=== PATIENT | male | born 1965 | race Caucasian/White ===

== ENCOUNTER 2018-03-28 11:53 | Day surgery (SDC) | payer OTHER ==
[~2018-03-28 11:53] MED LIST: Lactated Ringers 1,000 ML IV SCH; Lidocaine 2% 5 ML SDV ONE; Propofol 200 MG/20 ML SDV ONE; fentaNYL 100 MCG/2 ML SDV ONE
--- NOTE | 2018-03-28 12:16 | PCM.PREANE ---
Preanesthetic Assessment - Anesthesia/Transfusion/Family Hx Anesthesia History: Prior Anesthesia Without Reaction Other Type of Anesthesia Reaction Comment: Denies any known problems in past, Lots of anxiety recent Family History of Anesthesia Reaction: No Transfusion History: No Prior Transfusion(s) - Review of Systems General: No Symptoms Pulmonary: No Symptoms Cardiovascular: No Symptoms Gastrointestinal: No Symptoms Neurological: No Symptoms Other: Reports: Anxiety - Physical Assessment NPO Status Date: 03/27/18 Height: 1.65 m Weight: 70.307 kg ASA Class: 2 Airway Class: Mallampati = 1 Dentition: Reports: Normal Dentition ROM/Head Extension: Full Lungs: Clear to Auscultation, Normal Respiratory Effort Cardiovascular: Regular Rate, Regular Rhythm - Allergies Allergies/Adverse Reactions: Allergies Allergy/AdvReac Type Severity Reaction Status Date / Time amoxicillin [Amoxicillin] Allergy Rash Verified 03/27/18 12:02 codeine Allergy Swelling Verified 03/27/18 12:02 - Blood Blood Available: No - Anesthesia Plan Pre-Op Medication Ordered: None - Acknowledgements Anesthesia Type Planned: MAC Pt an Appropriate Candidate for the Planned Anesthesia: Yes Alternatives and Risks of Anesthesia Discussed w Pt/Guardian: Yes Pt/Guardian Understands and Agrees with Anesthesia Plan: Yes PreAnesthesia Questionnaire HEENT History: Reports: Hard of Hearing Respiratory History: Reports: COPD Other Respiratory History: smokes 1-2 PPd for 35 years Gastrointestinal History: Reports: Colon Polyp Musculoskeletal History: Reports: Back Pain, Chronic, Fracture, Neck Pain, Chronic Other Musculoskeletal History: hx of fx left wrist, right clavicle, left ankle Neurological History: Reports: Headaches, Chronic, Head Trauma Psychiatric History: Reports: Anxiety, Depression, Panic Attack Endocrine/Metabolic History: Reports: None - Infectious Disease History Infectious Disease History: Reports: Chicken Pox, Measles, Mumps, Shingles - Past Surgical History HEENT Surgical History: Reports: Other (See Below) Other HEENT Surgeries/Procedures: wisdom tooth extraction. rhinoplasty GI Surgical History: Reports: Appendectomy, Colonoscopy Male Surgical History: Reports: Vasectomy Neurological Surgical History: Reports: Laminectomy, Lumbar Spine Musculoskeletal Surgical History: Reports: Other (See Below) Other Musculoskeletal Surgeries/Procedures:: laminectomy, hx of ORIF left ankle - no hardware - SUBSTANCE USE Smoking Status *Q: Current Every Day Smoker Tobacco Use Within Last Twelve Months: Cigarettes Recreational Drug Use History: Yes - HOME MEDS Home Medications: Home Meds Venlafaxine [Effexor XR] 150 mg PO BRK 02/26/14 [History] ALPRAZolam [Alprazolam] 1 tab PO ASDIRECTED PRN 02/02/16 [History] Diclofenac Sodium [Voltaren] 4 gm TOP QID 03/27/18 [History] - CURRENT (IN HOUSE) MEDS Current Meds: Current Medications Lactated Ringer's (Ringers, Lactated) 1,000 mls @ 125 mls/hr IV ASDIRECTED LAISHA Discontinued Medications Fentanyl (Sublimaze) Confirm Administered Dose 100 mcg .ROUTE .STK-MED ONE Stop: 03/28/18 10:58 Lidocaine (Xylocaine-Mpf 2%) Confirm Administered Dose 5 ml .ROUTE .STK-MED ONE Stop: 03/28/18 10:58 Propofol (Diprivan 20 Ml) Confirm Administered Dose 200 mg .ROUTE .STK-MED ONE Stop: 03/28/18 10:58
[2018-03-28] MEDS ORDERED: Propofol 200 MG/20 ML SDV ONE (12:54)
[2018-03-28] MEDS ORDERED: fentaNYL 100 MCG/2 ML SDV ONE (12:59)
--- NOTE | 2018-03-28 13:15 | PCM.OPNOTE ---
- General Post-Op/Procedure Note Date of Surgery/Procedure: 03/28/18 Operative Procedure(s): attempted colonoscopy Findings: see dictation [id number] Pre Op Diagnosis: scrn colonoscopy Post-Op Diagnosis: Same Anesthesia Technique: Moderate Sedation Primary Surgeon: Jesse Darby Complications: None Condition: Good
--- NOTE | 2018-03-28 13:28 | PCM.POSTAN ---
POST ANESTHESIA ASSESSMENT - MENTAL STATUS Mental Status: Alert, Oriented - RESPIRATORY Respiratory Status: Respiratory Rate WNL, Airway Patent, O2 Saturation Stable - CARDIOVASCULAR CV Status: Pulse Rate WNL, Blood Pressure Stable - GASTROINTESTINAL GI Status: No Symptoms - PAIN Pain Score: 0 - POST OP HYDRATION Hydration Status: Adequate & Stable
[2018-03-28 13:51] VITALS: BP 138/89
--- NOTE | 2018-03-28 14:36 | PCM48HPAN ---
Post Anesthesia Note - EVALUATION WITHIN 48HRS OF ANESTHETIC Vital Signs in Normal Range: Yes Patient Participated in Evaluation: Yes Respiratory Function Stable: Yes Airway Patent: Yes Cardiovascular Function Stable: Yes Hydration Status Stable: Yes Pain Control Satisfactory: Yes (Denies any pain) Nausea and Vomiting Control Satisfactory: Yes Mental Status Recovered: Yes Resp Rate: 16
--- NOTE | 2018-03-29 08:41 | OR ---
SURGEON: Jesse Darby MD DATE OF PROCEDURE: 03/28/2018 PREOPERATIVE DIAGNOSIS: Surveillance colonoscopy. POSTOPERATIVE DIAGNOSIS: Surveillance colonoscopy. PROCEDURE PERFORMED: Attempted colonoscopy. COMPLICATIONS: None. FINDINGS: Cannot negotiate past 25 cm. PROCEDURE IN DETAIL: The patient taken to the endoscopy room and placed in left decubitus position, left side down and right side up. Mild general sedation was given by ELECTRICIAN MASTER with Diprivan. The patient slowly went to sedation. Digital examination performed, no abnormality. Prostate was smooth. A well-lubricated colonoscopy was gently inserted through the rectum and advanced without difficulty all the way to 25 cm and over that, cannot advance anymore despite numerous attempts and maneuvered the body position on the back, and decubitus again, failed to advance. During this short distance of colonoscopy, did not observe any abnormality. Scope withdrawn. The patient went for complementary barium enema. YEHUDA / JAMIR /[id number]
--- NOTE | 2018-03-29 10:48 | CR ---
EXAMINATION: Single contrast barium enema HISTORY: Incomplete colonoscopy COMPARISON: 01/17/2017 TECHNIQUE: Standard single contrast barium enema was performed. FINDINGS: The colon and rectum are overall normally distensible. There is mild narrowing of the sigmo id colon with moderate sigmoid diverticulosis, likely from long-standing inflammation. No focal stric ture or filling defect identified. IMPRESSION: 1. Diverticulosis, otherwise unremarkable barium enema.
== END 2018-03-28 14:40 | disposition home or self-care (01) ==
LOC: MW.SDS 11:53
PROVIDERS: ATTEND Surgery
DX: Z12.11 Encounter for screening for malignant neoplasm of colon (principal); M79.1 Myalgia; M47.816 Spondylosis without myelopathy or radiculopathy, lumbar region; J44.9 Chronic obstructive pulmonary disease, unspecified; F10.10 Alcohol abuse, uncomplicated; F41.9 Anxiety disorder, unspecified; F32.9 Major depressive disorder, single episode, unspecified; F17.210 Nicotine dependence, cigarettes, uncomplicated; Z79.899 Other long term (current) drug therapy; Z88.0 Allergy status to penicillin; Z88.5 Allergy status to narcotic agent
CPT/HCPCS: 45330; 74270; J2704; J3010; J7120

== ENCOUNTER 2019-03-02 15:08 | Emergency (ER) | payer OTHER ==
[2019-03-02] MEDS ORDERED: Sodium Chloride 0.9% 10 ML Syringe FLUSH PRN (15:09)
[2019-03-02] MEDS ORDERED: Sodium Chloride 0.9% 2.5 ML Syringe FLUSH PRN (15:09)
[2019-03-02] MEDS ORDERED: Sodium Chloride 0.9% 10 ML SDV IV PRN (15:09)
[2019-03-02 15:41] VITALS: BP 147/88; PULSE 87
--- NOTE | 2019-03-02 15:53 | CT ---
INDICATION: Stroke symptoms. TECHNIQUE: Scanning of the head was performed without IV contrast material. Coronal and sagittal reconstructions were obtained. COMPARISON: None. FINDINGS: Vasogenic edema is demonstrated in the lateral aspect of the posterior right frontal lobe. On images 36-38 of series 201, a mass, likely a metastasis, measuring 1.8 x 1.4 x 1.1 cm is demonstrated. On images 36-40, a solid and cystic 1.6 x 1.4 x 1.3 cm metastasis is demonstrated at the adair-white junction at the junction of the right frontal and parietal lobes medially. This also has associated vasogenic edema. A smaller focus of vasogenic edema in the left centrum semiovale is noted and a 0.6 cm metastasis is suspected to be present at the adair-white junction in the left frontoparietal region on image 42. No acute hemorrhage is demonstrated. No significant mass effect is apparent. Differentiation between the adair matter and white matter is preserved. The ventricles and other subarachnoid spaces are within normal limits. No calvarial abnormality is evident. The visualized paranasal and mastoid sinuses are clear. IMPRESSION: 1. At least 3 intra-axial masses with associated vasogenic edema, as above, most likely due to metastatic disease. Statistically, lung cancer most likely. Chest x-ray suggested. 2. Negative for acute hemorrhage and significant mass effect. These findings were discussed with Dr. Bran at 3:45 p.m. on 03/02/2019. Please note that all CT scans at this facility use dose modulation, iterative reconstruction, and/or weight-based dosing when appropriate to reduce radiation dose to as low as reasonably achievable. Dictated by Rahul Miranda MD @ Mar 02 2019 3:39PM Signed by Dr. Rahul Miranda @ Mar 02 2019 3:51PM
[2019-03-02 15:54] LABS: BLOOD UREA NITROGEN,BUN 8 mg/dL (7.0-18.0); CARBON DIOXIDE,CO2 25.8 mmol/L (21.0-32.0); CHLORIDE,CL 105 mmol/L (98-107); GLUCOSE RANDOM 96 mg/dL (74-106); POTASSIUM,K 3.8 mmol/L (3.5-5.1); SODIUM,NA 141 mmol/L (136-148)
--- NOTE | 2019-03-02 16:02 | CR ---
Indication: Pain. Technique: An AP view of the pelvis was obtained. Comparison: None Findings: Both femoral heads are seated within the acetabula. Degenerative changes of both hips are identified. Degenerative changes of the lower lumbar spine are identified. No acute fracture or subluxation is identified. Impression: Degenerative change. Dictated by Siena Jarvis MD @ Mar 02 2019 4:00PM Signed by Dr. Siena Jarvis @ Mar 02 2019 4:01PM
--- NOTE | 2019-03-02 16:02 | CR ---
Indication: Stroke code. Technique: A single AP portable view of the chest was obtained. Comparison: None Findings: The heart is normal in size. The lungs are clear. No infiltrate, pleural effusion, or pneumothorax is identified. Impression: No acute cardiopulmonary process. Dictated by Siena Jarvis MD @ Mar 02 2019 3:59PM Signed by Dr. Siena Jarvis @ Mar 02 2019 3:59PM
--- NOTE | 2019-03-02 16:35 | EDM.PDOC ---
ED HPI GENERAL MEDICAL PROBLEM - General Chief Complaint: Neurological Problem Stated Complaint: BLEEDING MOUTH TROUBLE Time Seen by Provider: 03/02/19 15:09 - History of Present Illness INITIAL COMMENTS - FREE TEXT/NARRATIVE: See note 03/02/2019 at 17:34 for documentation for this encounter. This note was started/entered in error. - Related Data Allergies Allergy/AdvReac Type Severity Reaction Status Date / Time amoxicillin [Amoxicillin] Allergy Rash Verified 03/05/19 19:13 codeine Allergy Swelling Verified 03/05/19 19:13 Home Meds: Home Meds Venlafaxine [Effexor XR] 150 mg PO BRK 02/26/14 [History] ALPRAZolam [Alprazolam] 1 tab PO ASDIRECTED PRN 02/02/16 [History] Diclofenac Sodium [Voltaren] 4 gm TOP QID 03/27/18 [History] Past Medical History HEENT History: Reports: Hard of Hearing Respiratory History: Reports: COPD Other Respiratory History: smokes 1-2 PPd for 35 years Gastrointestinal History: Reports: Colon Polyp Musculoskeletal History: Reports: Back Pain, Chronic, Fracture, Neck Pain, Chronic Other Musculoskeletal History: hx of fx left wrist, right clavicle, left ankle Neurological History: Reports: Headaches, Chronic, Head Trauma Psychiatric History: Reports: Anxiety, Depression, Panic Attack Endocrine/Metabolic History: Reports: None - Infectious Disease History Infectious Disease History: Reports: None - Past Surgical History HEENT Surgical History: Reports: Other (See Below) Other HEENT Surgeries/Procedures: wisdom tooth extraction. rhinoplasty GI Surgical History: Reports: Appendectomy, Colonoscopy Male Surgical History: Reports: Vasectomy Neurological Surgical History: Reports: Laminectomy, Lumbar Spine Musculoskeletal Surgical History: Reports: Other (See Below) Other Musculoskeletal Surgeries/Procedures:: laminectomy, hx of ORIF left ankle - no hardware Social & Family History - Family History Family Medical History: Noncontributory - Tobacco Use Smoking Status *Q: Current Every Day Smoker Years of Tobacco use: 35 Packs/Tins Daily: 1 - Caffeine Use Caffeine Use: Reports: Coffee - Recreational Drug Use Recreational Drug Use: Yes Recreational Drug Type: Reports: Marijuana/Hashish Recreational Drug Use Frequency: Daily ED ROS GENERAL - Review of Systems Review Of Systems: ROS reveals no pertinent complaints other than HPI. ED EXAM, GENERAL - Physical Exam Exam: See Below (See dictation) Course - Vital Signs Last Recorded V/S: Last Vital Signs Temp 36.7 C 03/02/19 15:15 Pulse 87 03/02/19 15:40 Resp 18 03/02/19 15:40 BP 147/88 H 03/02/19 15:40 Pulse Ox 98 03/02/19 15:40 - Orders/Labs/Meds Labs: Laboratory Tests 03/02/19 03/02/19 03/02/19 Range/Units 15:15 15:15 15:15 WBC 6.92 (4.0-11.0) K/uL RBC 5.27 (4.50-5.90) M/uL Hgb 17.3 H (13.0-17.0) g/dL Hct 48.0 (38.0-50.0) % MCV 91.1 (80.0-98.0) fL MCH 32.8 H (27.0-32.0) pg MCHC 36.0 (31.0-37.0) g/dL RDW Std Deviation 43.9 (28.0-62.0) fl RDW Coeff of Curry 13 (11.0-15.0) % Plt Count 238 (150-400) K/uL MPV 9.90 (7.40-12.00) fL Neut % (Auto) 50.2 (48.0-80.0) % Lymph % (Auto) 32.2 (16.0-40.0) % Motley % (Auto) 14.0 (0.0-15.0) % Eos % (Auto) 2.9 (0.0-7.0) % Baso % (Auto) 0.7 (0.0-1.5) % Neut # (Auto) 3.5 (1.4-5.7) K/uL Lymph # (Auto) 2.2 (0.6-2.4) K/uL Motley # (Auto) 1.0 H (0.0-0.8) K/uL Eos # (Auto) 0.2 (0.0-0.7) K/uL Baso # (Auto) 0.1 (0.0-0.1) K/uL INR 1.04 APTT 26.6 (18.6-31.3) SEC Sodium 141 (136-148) mmol/L Potassium 3.8 (3.5-5.1) mmol/L Chloride 105 (98-107) mmol/L Carbon Dioxide 25.8 (21.0-32.0) mmol/L BUN 8 (7.0-18.0) mg/dL Creatinine 0.9 (0.8-1.3) mg/dL Est Cr Clr Drug Dosing 84.67 mL/min Estimated GFR (MDRD) > 60.0 ml/min Glucose 96 (74-106) mg/dL Calcium 8.9 (8.5-10.1) mg/dL Total Bilirubin 0.8 (0.2-1.0) mg/dL AST 40 H (15-37) IU/L ALT 37 (14-63) IU/L Alkaline Phosphatase 76 (46-116) U/L Creatine Kinase 679 H (26-308) U/L Troponin I < 0.050 (0.000-0.056) ng/mL Total Protein 6.6 (6.4-8.2) g/dL Albumin 3.7 (3.4-5.0) g/dL Globulin 2.9 (2.6-4.0) g/dL Albumin/Globulin Ratio 1.3 (0.9-1.6) TSH 3rd Generation 1.46 (0.36-3.74) uIU/mL Urine Color Urine Appearance Urine pH (5.0-8.0) Ur Specific [place] (1.001-1.035) Urine Protein (NEGATIVE) mg/dL Urine Glucose (UA) (NEGATIVE) mg/dL Urine Ketones (NEGATIVE) mg/dL Urine Occult Blood (NEGATIVE) Urine Nitrite (NEGATIVE) Urine Bilirubin (NEGATIVE) Urine Urobilinogen (<2.0) EU/dL Ur Leukocyte Esterase (NEGATIVE) 03/02/19 Range/Units 16:05 WBC (4.0-11.0) K/uL RBC (4.50-5.90) M/uL Hgb (13.0-17.0) g/dL Hct (38.0-50.0) % MCV (80.0-98.0) fL MCH (27.0-32.0) pg MCHC (31.0-37.0) g/dL RDW Std Deviation (28.0-62.0) fl RDW Coeff of Curry (11.0-15.0) % Plt Count (150-400) K/uL MPV (7.40-12.00) fL Neut % (Auto) (48.0-80.0) % Lymph % (Auto) (16.0-40.0) % Motley % (Auto) (0.0-15.0) % Eos % (Auto) (0.0-7.0) % Baso % (Auto) (0.0-1.5) % Neut # (Auto) (1.4-5.7) K/uL Lymph # (Auto) (0.6-2.4) K/uL Motley # (Auto) (0.0-0.8) K/uL Eos # (Auto) (0.0-0.7) K/uL Baso # (Auto) (0.0-0.1) K/uL INR APTT (18.6-31.3) SEC Sodium (136-148) mmol/L Potassium (3.5-5.1) mmol/L Chloride (98-107) mmol/L Carbon Dioxide (21.0-32.0) mmol/L BUN (7.0-18.0) mg/dL Creatinine (0.8-1.3) mg/dL Est Cr Clr Drug Dosing mL/min Estimated GFR (MDRD) ml/min Glucose (74-106) mg/dL Calcium (8.5-10.1) mg/dL Total Bilirubin (0.2-1.0) mg/dL AST (15-37) IU/L ALT (14-63) IU/L Alkaline Phosphatase (46-116) U/L Creatine Kinase (26-308) U/L Troponin I (0.000-0.056) ng/mL Total Protein (6.4-8.2) g/dL Albumin (3.4-5.0) g/dL Globulin (2.6-4.0) g/dL Albumin/Globulin Ratio (0.9-1.6) TSH 3rd Generation (0.36-3.74) uIU/mL Urine Color YELLOW Urine Appearance CLEAR Urine pH 7.5 (5.0-8.0) Ur Specific [place] 1.010 (1.001-1.035) Urine Protein NEGATIVE (NEGATIVE) mg/dL Urine Glucose (UA) NEGATIVE (NEGATIVE) mg/dL Urine Ketones NEGATIVE (NEGATIVE) mg/dL Urine Occult Blood NEGATIVE (NEGATIVE) Urine Nitrite NEGATIVE (NEGATIVE) Urine Bilirubin NEGATIVE (NEGATIVE) Urine Urobilinogen 0.2 (<2.0) EU/dL Ur Leukocyte Esterase NEGATIVE (NEGATIVE) Meds: Medications Discontinued Medications Generic Name Dose Route Start Last Admin Trade Name Freq PRN Reason Stop Dose Admin Sodium Chloride 10 ml 03/02/19 15:09 Saline Flush FLUSH ASDIRECTED PRN Keep Vein Open Sodium Chloride 2.5 ml 03/02/19 15:09 Saline Flush FLUSH ASDIRECTED PRN Keep Vein Open Sodium Chloride 10 ml 03/02/19 15:09 Normal Saline IV ASDIRECTED PRN IV Use Departure - Departure Time of Disposition: 16:34 Disposition: Home, Self-Care 01 Clinical Impression: Intracranial mass - Discharge Information
--- NOTE | 2019-03-02 17:49 | EDM.PDOC ---
ED HPI GENERAL MEDICAL PROBLEM - General Chief Complaint: Neurological Problem Stated Complaint: BLEEDING MOUTH TROUBLE Time Seen by Provider: 03/02/19 15:09 Source of Information: Reports: Patient History Limitations: Reports: No Limitations - History of Present Illness INITIAL COMMENTS - FREE TEXT/NARRATIVE: HISTORY AND PHYSICAL: History of present illness: (Initial HPI limited due to altered mental status) Patient is a 53-year-old male presents to the ED today via EMS with an unclear an unwitnessed story of exactly what had occurred. EMS states that patient was found at the neighbor's door and EMS was called. Upon arrival, patient states that he had some numbness in the left side of his face and doesn't recall the whole event. Patient states he felt like he was drowning and was dizzy and lightheaded and couldn't take a big deep breath in. Patient states he did bite his tongue and has had bleeding in his mouth. Currently, patient states he feels confused but denies any other symptoms at this time. Patient does live at home alone and this was all unwitnessed. Last known time well is unknown. Following the CT, patient was no longer confused and able to properly communicate what happened. Patient states he was sitting on his couch when he began to feel a numbness sensation in the left side of his cheek. He states he went to grab his phone to call EMS but states he could not unlock his phone to call 911. Patient states he then went outside and went to his neighbor's door and sat down to knock on the door. He states that when the neighbors came out and had called 911. Patient states he's never had this before and he is not entirely sure if he lost consciousness when he was on the couch when symptoms began. Patient denies any complaints at this time. Patient has a history of COPD and high blood pressure but he denies any other health history. Patient denies fever, chills, chest pain, shortness of breath, or cough. Denies headache, neck stiff ness, change in vision, syncope, or near syncope. Denies nausea, vomiting, abdominal pain, diarrhea, constipation, or dysuria. Has not noted any blood in urine or stool. Patient has been eating and drinking appropriately. Review of systems: As per history of present illness and below otherwise all systems reviewed and negative. Past medical history: As per history of present illness and as reviewed below otherwise noncontributory. Surgical history: As per history of present illness and as reviewed below otherwise noncontributory. Social history: See social history for further information Family history: As per history of present illness and as reviewed below otherwise noncontributory. Physical exam: General: Patient is alert, oriented to person and place, and in no acute distress. Patient sitting comfortably on exam table and is confused. HEENT: Atraumatic, normocephalic, pupils equal and reactive bilaterally, negative for conjunctival pallor or scleral icterus, mucous membranes moist, TMs normal bilaterally, throat clear, neck supple, nontender, trachea midline. No drooling or trismus noted. No meningeal signs. No hot potato voice noted. There are 2 bite blackburn to either side of tongue with old blood in his mouth. Lungs: Clear to auscultation, breath sounds equal bilaterally, chest nontender. Heart: S1S2, regular rate and rhythm without overt murmur Abdomen: Soft, nondistended, nontender. Negative for masses or hepatosplenomegaly. Negative for costovertebral tenderness. Pelvis: Stable nontender. Genitourinary: Deferred. Rectal: Deferred. Skin: Intact, warm, dry. No lesions or rashes noted. Extremities: Atraumatic, negative for cords or calf pain. Neurovascular unremarkable. Neuro: Awake, alert, oriented to person and place but unsure of time. His sentences are not clear and "word salad" is present. Cranial nerves II through XII unremarkable. Cerebellum unremarkable. Motor and sensory unremarkable throughout. Exam nonfocal. Notes: Stroke code was called upon arrival to the ED. Dr. Coats involved in patient care. Last known time well is unknown. (Performed after head CT) NIH score of 0, GCS 15. Did offer admission for observation and had thorough discussion with patient about findings today. Patient is adamant about going home and he is alert and fully oriented to make this decision. Discussed the risks vs benefits of going home and patient continues to decline admission and accepts the risks. Denies any further questions or concerns at this time. Diagnostics: CBC, CMP, UA, EKG, troponin, chest x-ray, head CT, pelvic x-ray, CPK, TSH, PT/ INR, PTT Therapeutics: None Prescription: None Impression: Altered mental status, resolved Intracranial masses Tongue bite injury Plan: 1. You can use Tylenol as directed for pain and discomfort. 2. [facility]. Call them in the morning for an appointment. 3. Return to the ED as needed and as discussed. Definitive disposition and diagnosis as appropriate pending reevaluation and review of above. - Related Data Allergies Allergy/AdvReac Type Severity Reaction Status Date / Time amoxicillin [Amoxicillin] Allergy Rash Verified 03/02/19 17:17 codeine Allergy Swelling Verified 03/02/19 17:17 Home Meds: Home Meds Venlafaxine [Effexor XR] 150 mg PO BRK 02/26/14 [History] ALPRAZolam [Alprazolam] 1 tab PO ASDIRECTED PRN 02/02/16 [History] Diclofenac Sodium [Voltaren] 4 gm TOP QID 03/27/18 [History] Past Medical History HEENT History: Reports: Hard of Hearing Respiratory History: Reports: COPD Other Respiratory History: smokes 1-2 PPd for 35 years Gastrointestinal History: Reports: Colon Polyp Musculoskeletal History: Reports: Back Pain, Chronic, Fracture, Neck Pain, Chronic Other Musculoskeletal History: hx of fx left wrist, right clavicle, left ankle Neurological History: Reports: Headaches, Chronic, Head Trauma Psychiatric History: Reports: Anxiety, Depression, Panic Attack Endocrine/Metabolic History: Reports: None - Infectious Disease History Infectious Disease History: Reports: None - Past Surgical History HEENT Surgical History: Reports: Other (See Below) Other HEENT Surgeries/Procedures: wisdom tooth extraction. rhinoplasty GI Surgical History: Reports: Appendectomy, Colonoscopy Male Surgical History: Reports: Vasectomy Neurological Surgical History: Reports: Laminectomy, Lumbar Spine Musculoskeletal Surgical History: Reports: Other (See Below) Other Musculoskeletal Surgeries/Procedures:: laminectomy, hx of ORIF left ankle - no hardware Social & Family History - Family History Family Medical History: Noncontributory - Tobacco Use Smoking Status *Q: Current Every Day Smoker Years of Tobacco use: 35 Packs/Tins Daily: 1 - Caffeine Use Caffeine Use: Reports: Coffee - Recreational Drug Use Recreational Drug Use: Yes Recreational Drug Type: Reports: Marijuana/Hashish Recreational Drug Use Frequency: Daily ED ROS GENERAL - Review of Systems Review Of Systems: ROS reveals no pertinent complaints other than HPI. ED EXAM, GENERAL - Physical Exam Exam: See Below (See dictation) Free Text/Narrative:: HISTORY AND PHYSICAL: History of present illness: Patient denies fever, chills, chest pain, shortness of breath, or cough. Denies headache, neck stiff ness, change in vision, syncope, or near syncope. Denies nausea, vomiting, abdominal pain, diarrhea, constipation, or dysuria. Has not noted any blood in urine or stool. Patient has been eating and drinking appropriately. Review of systems: As per history of present illness and below otherwise all systems reviewed and negative. Past medical history: As per history of present illness and as reviewed below otherwise noncontributory. Surgical history: As per history of present illness and as reviewed below otherwise noncontributory. Social history: See social history for further information Family history: As per history of present illness and as reviewed below otherwise noncontributory. Physical exam: General: Patient is alert, oriented, and in no acute distress. Patient sitting comfortably on exam table. HEENT: Atraumatic, normocephalic, pupils equal and reactive bilaterally, negative for conjunctival pallor or scleral icterus, mucous membranes moist, TMs normal bilaterally, throat clear, neck supple, nontender, trachea midline. No drooling or trismus noted. No meningeal signs. No hot potato voice noted. Lungs: Clear to auscultation, breath sounds equal bilaterally, chest nontender. Heart: S1S2, regular rate and rhythm without overt murmur Abdomen: Soft, nondistended, nontender. Negative for masses or hepatosplenomegaly. Negative for costovertebral tenderness. Pelvis: Stable nontender. Genitourinary: Deferred. Rectal: Deferred. Skin: Intact, warm, dry. No lesions or rashes noted. Extremities: Atraumatic, negative for cords or calf pain. Neurovascular unremarkable. Neuro: Awake, alert, oriented. Cranial nerves II through XII unremarkable. Cerebellum unremarkable. Motor and sensory unremarkable throughout. Exam nonfocal. Notes: Stroke code was called upon arrival to the ED. Voices understanding and is agreeable to plan of care. Denies any further questions or concerns at this time. Diagnostics: CBC, CMP, UA, EKG, troponin, chest x-ray, head CT, pelvic x-ray, CPK, TSH, PT/ INR, PTT Therapeutics: Prescription: Impression: Intracranial masses Altered mental status, resolved Tongue bite Plan: 1. You can use Tylenol as directed for pain and discomfort. 2. [facility], [facility]. Call them in the morning for an appointment. 3. Return to the ED as needed and as discussed. Definitive disposition and diagnosis as appropriate pending reevaluation and review of above. Course - Vital Signs Last Recorded V/S: Last Vital Signs Temp 36.7 C 03/02/19 15:15 Pulse 87 03/02/19 15:40 Resp 18 03/02/19 15:40 BP 147/88 H 03/02/19 15:40 Pulse Ox 98 03/02/19 15:40 - Orders/Labs/Meds Orders: Active Orders 24 hr Category Date Time Status Assess Neurological Status [RC] ASDIRECTED Care 03/02/19 15:09 Active Bedrest [RC] ASDIRECTED Care 03/02/19 15:09 Active Cardiac Monitoring [RC] . DIRECTED Care 03/02/19 15:09 Active EKG Documentation Completion [RC] STAT Care 03/02/19 15:09 Active Height and Weight [RC] UPON Care 03/02/19 15:09 Active Initiate Acute Stroke Protocol [RC] STAT Care 03/02/19 15:09 Active NIH Stroke Scale [RC] ASDIRECTED Care 03/02/19 15:09 Active Nursing Bedside Swallow Screen [RC] ASDIRECTED Care 03/02/19 15:09 Active Oxygen Therapy [RC] ASDIRECTED Care 03/02/19 15:09 Active Vital Signs [RC] Q15M Care 03/02/19 15:09 Active Peripheral IV Insertion Adult [OM.PC] Stat Oth 03/02/19 15:09 Ordered Peripheral IV Insertion Adult [OM.PC] Stat Oth 03/02/19 15:09 Ordered Labs: Laboratory Tests 03/02/19 03/02/19 03/02/19 Range/Units 15:15 15:15 15:15 WBC 6.92 (4.0-11.0) K/uL RBC 5.27 (4.50-5.90) M/uL Hgb 17.3 H (13.0-17.0) g/dL Hct 48.0 (38.0-50.0) % MCV 91.1 (80.0-98.0) fL MCH 32.8 H (27.0-32.0) pg MCHC 36.0 (31.0-37.0) g/dL RDW Std Deviation 43.9 (28.0-62.0) fl RDW Coeff of Curry 13 (11.0-15.0) % Plt Count 238 (150-400) K/uL MPV 9.90 (7.40-12.00) fL Neut % (Auto) 50.2 (48.0-80.0) % Lymph % (Auto) 32.2 (16.0-40.0) % Meade % (Auto) 14.0 (0.0-15.0) % Eos % (Auto) 2.9 (0.0-7.0) % Baso % (Auto) 0.7 (0.0-1.5) % Neut # (Auto) 3.5 (1.4-5.7) K/uL Lymph # (Auto) 2.2 (0.6-2.4) K/uL Meade # (Auto) 1.0 H (0.0-0.8) K/uL Eos # (Auto) 0.2 (0.0-0.7) K/uL Baso # (Auto) 0.1 (0.0-0.1) K/uL INR 1.04 APTT 26.6 (18.6-31.3) SEC Sodium 141 (136-148) mmol/L Potassium 3.8 (3.5-5.1) mmol/L Chloride 105 (98-107) mmol/L Carbon Dioxide 25.8 (21.0-32.0) mmol/L BUN 8 (7.0-18.0) mg/dL Creatinine 0.9 (0.8-1.3) mg/dL Est Cr Clr Drug Dosing 84.67 mL/min Estimated GFR (MDRD) > 60.0 ml/min Glucose 96 (74-106) mg/dL Calcium 8.9 (8.5-10.1) mg/dL Total Bilirubin 0.8 (0.2-1.0) mg/dL AST 40 H (15-37) IU/L ALT 37 (14-63) IU/L Alkaline Phosphatase 76 (46-116) U/L Creatine Kinase 679 H (26-308) U/L Troponin I < 0.050 (0.000-0.056) ng/mL Total Protein 6.6 (6.4-8.2) g/dL Albumin 3.7 (3.4-5.0) g/dL Globulin 2.9 (2.6-4.0) g/dL Albumin/Globulin Ratio 1.3 (0.9-1.6) TSH 3rd Generation 1.46 (0.36-3.74) uIU/mL Urine Color Urine Appearance Urine pH (5.0-8.0) Ur Specific Elkin (1.001-1.035) Urine Protein (NEGATIVE) mg/dL Urine Glucose (UA) (NEGATIVE) mg/dL Urine Ketones (NEGATIVE) mg/dL Urine Occult Blood (NEGATIVE) Urine Nitrite (NEGATIVE) Urine Bilirubin (NEGATIVE) Urine Urobilinogen (<2.0) EU/dL Ur Leukocyte Esterase (NEGATIVE) 03/02/19 Range/Units 16:05 WBC (4.0-11.0) K/uL RBC (4.50-5.90) M/uL Hgb (13.0-17.0) g/dL Hct (38.0-50.0) % MCV (80.0-98.0) fL MCH (27.0-32.0) pg MCHC (31.0-37.0) g/dL RDW Std Deviation (28.0-62.0) fl RDW Coeff of Curry (11.0-15.0) % Plt Count (150-400) K/uL MPV (7.40-12.00) fL Neut % (Auto) (48.0-80.0) % Lymph % (Auto) (16.0-40.0) % Meade % (Auto) (0.0-15.0) % Eos % (Auto) (0.0-7.0) % Baso % (Auto) (0.0-1.5) % Neut # (Auto) (1.4-5.7) K/uL Lymph # (Auto) (0.6-2.4) K/uL Meade # (Auto) (0.0-0.8) K/uL Eos # (Auto) (0.0-0.7) K/uL Baso # (Auto) (0.0-0.1) K/uL INR APTT (18.6-31.3) SEC Sodium (136-148) mmol/L Potassium (3.5-5.1) mmol/L Chloride (98-107) mmol/L Carbon Dioxide (21.0-32.0) mmol/L BUN (7.0-18.0) mg/dL Creatinine (0.8-1.3) mg/dL Est Cr Clr Drug Dosing mL/min Estimated GFR (MDRD) ml/min Glucose (74-106) mg/dL Calcium (8.5-10.1) mg/dL Total Bilirubin (0.2-1.0) mg/dL AST (15-37) IU/L ALT (14-63) IU/L Alkaline Phosphatase (46-116) U/L Creatine Kinase (26-308) U/L Troponin I (0.000-0.056) ng/mL Total Protein (6.4-8.2) g/dL Albumin (3.4-5.0) g/dL Globulin (2.6-4.0) g/dL Albumin/Globulin Ratio (0.9-1.6) TSH 3rd Generation (0.36-3.74) uIU/mL Urine Color YELLOW Urine Appearance CLEAR Urine pH 7.5 (5.0-8.0) Ur Specific Elkin 1.010 (1.001-1.035) Urine Protein NEGATIVE (NEGATIVE) mg/dL Urine Glucose (UA) NEGATIVE (NEGATIVE) mg/dL Urine Ketones NEGATIVE (NEGATIVE) mg/dL Urine Occult Blood NEGATIVE (NEGATIVE) Urine Nitrite NEGATIVE (NEGATIVE) Urine Bilirubin NEGATIVE (NEGATIVE) Urine Urobilinogen 0.2 (<2.0) EU/dL Ur Leukocyte Esterase NEGATIVE (NEGATIVE) Meds: Medications Discontinued Medications Generic Name Dose Route Start Last Admin Trade Name Freq PRN Reason Stop Dose Admin Sodium Chloride 10 ml 03/02/19 15:09 Saline Flush FLUSH ASDIRECTED PRN Keep Vein Open Sodium Chloride 2.5 ml 03/02/19 15:09 Saline Flush FLUSH ASDIRECTED PRN Keep Vein Open Sodium Chloride 10 ml 03/02/19 15:09 Normal Saline IV ASDIRECTED PRN IV Use Departure - Departure Time of Disposition: 17:50 Disposition: Home, Self-Care 01 Clinical Impression: Intracranial mass, Open wound of tongue due to bite Altered mental status Qualifiers: Altered mental status type: unspecified Qualified Code(s): R41.82 - Altered mental status, unspecified - Discharge Information Instructions: Altered Mental Status Referrals: PCP,None [Primary Care Provider] - Forms: ED Department Discharge Additional Instructions: The following information is given to patients seen in the emergency department who are being discharged to home. This information is to outline your options for follow-up care. We provide all patients seen in our emergency department with a follow-up referral. The need for follow-up, as well as the timing and circumstances, are variable depending upon the specifics of your emergency department visit. If you don't have a primary care physician on staff, we will provide you with a referral. We always advise you to contact your personal physician following an emergency department visit to inform them of the circumstance of the visit and for follow-up with them and/or the need for any referrals to a consulting specialist. The emergency department will also refer you to a specialist when appropriate. This referral assures that you have the opportunity for follow-up care with a specialist. All of these measure are taken in an effort to provide you with optimal care, which includes your follow-up. Under all circumstances we always encourage you to contact your private physician who remains a resource for coordinating your care. When calling for follow-up care, please make the office aware that this follow-up is from your recent emergency room visit. If for any reason you are refused follow-up, please contact the [facility] at and asked to speak to the emergency department charge nurse. [facility] [address] [place] [id number] [id number] 1. You can use Tylenol as directed for pain and discomfort. 2. [facility], [facility] discussed. Call them in the morning for an appointment. 3. Return to the ED as needed and as discussed. - My Orders Last 24 Hours: My Active Orders 03/02/19 15:09 Assess Neurological Status [RC] ASDIRECTED Bedrest [RC] ASDIRECTED Cardiac Monitoring [RC] . DIRECTED EKG Documentation Completion [RC] STAT Height and Weight [RC] UPON Initiate Acute Stroke Protocol [RC] STAT NIH Stroke Scale [RC] ASDIRECTED Nursing Bedside Swallow Screen [RC] ASDIRECTED Oxygen Therapy [RC] ASDIRECTED Vital Signs [RC] Q15M Peripheral IV Insertion Adult [OM.PC] Stat Peripheral IV Insertion Adult [OM.PC] Stat - Assessment/Plan Last 24 Hours: My Active Orders 03/02/19 15:09 Assess Neurological Status [RC] ASDIRECTED Bedrest [RC] ASDIRECTED Cardiac Monitoring [RC] . DIRECTED EKG Documentation Completion [RC] STAT Height and Weight [RC] UPON Initiate Acute Stroke Protocol [RC] STAT NIH Stroke Scale [RC] ASDIRECTED Nursing Bedside Swallow Screen [RC] ASDIRECTED Oxygen Therapy [RC] ASDIRECTED Vital Signs [RC] Q15M Peripheral IV Insertion Adult [OM.PC] Stat Peripheral IV Insertion Adult [OM.PC] Stat
== END 2019-03-02 16:50 | disposition home or self-care (01) ==
LOC: MW.ED 15:08
DX: S01.552A Open bite of oral cavity, initial encounter (principal); G93.89 Other specified disorders of brain; R41.82 Altered mental status, unspecified; W19.XXXA Unspecified fall, initial encounter
CPT/HCPCS: 70450; 70450-26; 71045; 71045-26; 72170; 72170-26; 80053; 81003; 82550; 84443; 84484; 85025; 85610; 85730; 99284; 99285-25

== ENCOUNTER 2019-03-02 17:03 | Emergency (ER) | payer OTHER ==
[2019-03-02] MEDS ORDERED: LORazepam 2 MG/ML SDV IVPUSH ONE ×2 (17:12→17:41)
--- NOTE | 2019-03-02 17:31 | EDM.PDOC ---
ED HPI GENERAL MEDICAL PROBLEM - General Chief Complaint: Neuro Symptoms/Deficits Stated Complaint: NURSE SPOKE TO PT Time Seen by Provider: 03/02/19 17:09 Source of Information: Reports: Patient History Limitations: Reports: No Limitations - History of Present Illness INITIAL COMMENTS - FREE TEXT/NARRATIVE: HISTORY AND PHYSICAL: History of present illness: Patient is a 53-year-old male who I had just personally seen in the ED who was discharged after admission to hospital was offered for newly diagnosed intracranial masses with altered mental status that had resolved throughout his course in the ED; patient adamantly requesting discharge and full alert and orientated. Right after patient had left with his nephew, they returned shortly after, and the nursing staff was helping patient out of the vehicle, and he began to have seizure-like activity; the left side of his mouth twitching, eyes rolling back, unable to speak biting his tongue, and left arm contracted up. Nursing staff immediately brought him back and put him in a room when the seizure activity stopped (lasting less then 30 seconds). Over the next few minutes, he had seizures off and on with periods of being post ictal. Upon my evaluation, I did personally see patient seizing and verified nursing staff concerns as stated above. In total, seizure activity lasted no longer than 30 for each episode. Therapeutics given and patient no longer seizing. (see note section below) Patient denies fever, chills, chest pain, shortness of breath, or cough. Denies headache, neck stiff ness, change in vision, syncope, or near syncope. Denies nausea, vomiting, abdominal pain, diarrhea, constipation, or dysuria. Has not noted any blood in urine or stool. Patient has been eating and drinking appropriately. Review of systems: As per history of present illness and below otherwise all systems reviewed and negative. Past medical history: As per history of present illness and as reviewed below otherwise noncontributory. Surgical history: As per history of present illness and as reviewed below otherwise noncontributory. Social history: See social history for further information Family history: As per history of present illness and as reviewed below otherwise noncontributory. Physical exam: General: Patient is actively seizing on my initial exam. Patient laying on exam table, biting his tongue, left side of his face twitching, and left hand contracted upward. (Lasts a few seconds) HEENT: Atraumatic, normocephalic, pupils equal and reactive bilaterally, negative for conjunctival pallor or scleral icterus, mucous membranes moist, TMs normal bilaterally, throat clear, neck supple, nontender, trachea midline. No drooling or trismus noted. No meningeal signs. No hot potato voice noted. Lungs: Clear to auscultation, breath sounds equal bilaterally, chest nontender. Heart: S1S2, regular rate and rhythm without overt murmur Abdomen: Soft, nondistended, nontender. Negative for masses or hepatosplenomegaly. Negative for costovertebral tenderness. Pelvis: Stable nontender. Genitourinary: Deferred. Rectal: Deferred. Skin: Intact, warm, dry. No lesions or rashes noted. Extremities: Atraumatic, negative for cords or calf pain. Neurovascular unremarkable. Neuro: Patient is actively seizing on my initial exam. Patient laying on exam table, biting his tongue, left side of his face twitching, and left hand contracted upward. (Lasts a few seconds) Notes: Dr. Coats verbally involved in patient care. Throughout course in ED, patient does not have any more seizures. After his postictal state, I rediscussed plan of care with patient and nephew who is now at bedside. He is now willing to accept admission or transfer. He denies any new symptoms or pain following the seizure events with no new complaints. Dr. Arnold was consulted on patient and due to patient symptotic intracranial masses, and not having neurology available, have to transfer patient. Dr. Salcedo, in [place], consulted on patient and accepting of transfer. There is not a ground ambulance available until all 1 AM. Will call for flight transfer. Voices understanding and is agreeable to plan of care. Denies any further questions or concerns at this time. Diagnostics: None (see prior note) Therapeutics: Keppra, Ativan, Decadron Impression: Seizure Intracranial masses, symptomatic Tongue bite injury Plan: 1. Transfer to to Dr. Salcedo via flight. Definitive disposition and diagnosis as appropriate pending reevaluation and review of above. - Related Data Allergies Allergy/AdvReac Type Severity Reaction Status Date / Time amoxicillin [Amoxicillin] Allergy Rash Verified 03/02/19 17:17 codeine Allergy Swelling Verified 03/02/19 17:17 Home Meds: Home Meds Venlafaxine [Effexor XR] 150 mg PO BRK 02/26/14 [History] ALPRAZolam [Alprazolam] 1 tab PO ASDIRECTED PRN 02/02/16 [History] Diclofenac Sodium [Voltaren] 4 gm TOP QID 03/27/18 [History] Past Medical History HEENT History: Reports: Hard of Hearing Respiratory History: Reports: COPD Other Respiratory History: smokes 1-2 PPd for 35 years Gastrointestinal History: Reports: Colon Polyp Musculoskeletal History: Reports: Back Pain, Chronic, Fracture, Neck Pain, Chronic Other Musculoskeletal History: hx of fx left wrist, right clavicle, left ankle Neurological History: Reports: Headaches, Chronic, Head Trauma, Seizure Psychiatric History: Reports: Anxiety, Depression, Panic Attack Endocrine/Metabolic History: Reports: None - Infectious Disease History Infectious Disease History: Reports: None - Past Surgical History HEENT Surgical History: Reports: Other (See Below) Other HEENT Surgeries/Procedures: wisdom tooth extraction. rhinoplasty GI Surgical History: Reports: Appendectomy, Colonoscopy Male Surgical History: Reports: Vasectomy Neurological Surgical History: Reports: Laminectomy, Lumbar Spine Musculoskeletal Surgical History: Reports: Other (See Below) Other Musculoskeletal Surgeries/Procedures:: laminectomy, hx of ORIF left ankle - no hardware Social & Family History - Family History Family Medical History: Noncontributory - Tobacco Use Smoking Status *Q: Current Every Day Smoker Years of Tobacco use: 30 Packs/Tins Daily: 1 - Caffeine Use Caffeine Use: Reports: None - Recreational Drug Use Recreational Drug Use: Yes Recreational Drug Type: Reports: Marijuana/Hashish Recreational Drug Use Frequency: Daily ED ROS GENERAL - Review of Systems Review Of Systems: ROS reveals no pertinent complaints other than HPI. ED EXAM, GENERAL - Physical Exam Exam: See Below (see dictation) Course - Vital Signs Last Recorded V/S: Last Vital Signs Temp 36.1 C 03/02/19 17:18 Pulse 87 03/02/19 18:45 Resp 16 03/02/19 18:45 BP 120/81 03/02/19 18:45 Pulse Ox 97 03/02/19 18:45 - Orders/Labs/Meds Orders: Active Orders 24 hr Category Date Time Status Sodium Chloride 0.9% [Normal Saline] 1,000 ml Med 03/02/19 19:14 Active IV NOW Medication Orders Sodium Chloride (Normal Saline) 1,000 mls @ 80 mls/hr IV NOW STA Stop: 03/03/19 07:43 Last Admin: 03/02/19 19:15 Dose: 80 mls/hr Meds: Medications Generic Name Dose Route Start Last Admin Trade Name Jerad PRN Reason Stop Dose Admin Sodium Chloride 1,000 mls @ 80 mls/hr 03/02/19 19:14 03/02/19 19:15 Normal Saline IV 03/03/19 07:43 80 mls/hr NOW STA Administration Discontinued Medications Generic Name Dose Route Start Last Admin Trade Name Jerad PRN Reason Stop Dose Admin Dexamethasone 10 mg 03/02/19 17:41 03/02/19 17:47 Dexamethasone IVPUSH 03/02/19 17:42 10 mg ONETIME ONE Administration Levetiracetam 1,000 mg/ 110 mls @ 440 mls/hr 03/02/19 17:11 03/02/19 17:27 Dextrose/Water IV 03/02/19 17:25 Not Given NOW STA Levetiracetam 1,000 mg/ 110 mls @ 440 mls/hr 03/02/19 17:13 03/02/19 17:33 Dextrose/Water IV 03/02/19 17:27 440 mls/hr NOW STA Administration Sodium Chloride 1,000 mls @ 999 mls/hr 03/02/19 18:14 03/02/19 18:18 Normal Saline IV 03/02/19 19:14 999 mls/hr .Bolus ONE Administration Lorazepam 1 mg 03/02/19 17:12 03/02/19 17:18 Ativan IVPUSH 03/02/19 17:13 1 mg ONETIME ONE Administration Lorazepam 1 mg 03/02/19 17:41 03/02/19 17:47 Ativan IVPUSH 03/02/19 17:42 1 mg ONETIME ONE Administration Departure - Departure Time of Disposition: 19:04 Disposition: DC/Tfer to Acute Hospital 02 Clinical Impression: Intracranial mass, Seizure, Open wound of tongue due to bite - Discharge Information - My Orders Last 24 Hours: My Active Orders 03/02/19 19:14 Sodium Chloride 0.9% [Normal Saline] 1,000 ml IV NOW - Assessment/Plan Last 24 Hours: My Active Orders 03/02/19 19:14 Sodium Chloride 0.9% [Normal Saline] 1,000 ml IV NOW
[2019-03-02] MEDS ORDERED: Dexamethasone 10 MG/ML SDV IVPUSH ONE (17:41)
[2019-03-02] MEDS ORDERED: Sodium Chloride 0.9% 1,000 ML IV ONE (18:14)
[2019-03-02] MEDS ORDERED: Sodium Chloride 0.9% 1,000 ML IV STA (19:14)
[2019-03-02 20:11] VITALS: BP 123/83; PULSE 94
== END 2019-03-02 20:10 ==
LOC: MW.ED 17:03
DX: R56.9 Unspecified convulsions (principal); G93.9 Disorder of brain, unspecified; S01.552A Open bite of oral cavity, initial encounter; J44.9 Chronic obstructive pulmonary disease, unspecified; F17.210 Nicotine dependence, cigarettes, uncomplicated; F41.9 Anxiety disorder, unspecified; F32.9 Major depressive disorder, single episode, unspecified; Z88.1 Allergy status to other antibiotic agents; Z88.5 Allergy status to narcotic agent; Z79.899 Other long term (current) drug therapy; Z86.010 Personal history of colon polyps; W50.3XXA Accidental bite by another person, initial encounter; R41.0 Disorientation, unspecified; G93.89 Other specified disorders of brain; R41.82 Altered mental status, unspecified; W19.XXXA Unspecified fall, initial encounter
CPT/HCPCS: 70450; 71045; 72170; 80053; 81003; 82550; 84443; 84484; 85025; 85610; 85730; 93005; 96361; 96374; 96375; 99285; J1100; J1953; J2060; J7040; J7060; 99284

== ENCOUNTER 2019-03-05 19:03 | Emergency (ER) | payer MEDICARE, OTHER ==
--- NOTE | 2019-03-05 19:45 | EDM.PDOC ---
ED HPI GENERAL MEDICAL PROBLEM - General Chief Complaint: Neuro Symptoms/Deficits Stated Complaint: SEIZURE Time Seen by Provider: 03/05/19 19:12 Source of Information: Reports: Patient History Limitations: Reports: No Limitations - History of Present Illness INITIAL COMMENTS - FREE TEXT/NARRATIVE: HISTORY AND PHYSICAL: History of present illness: Patient is a 53-year-old male, who was recently diagnosed with new onset seizures related to newly diagnosed brain masses, presents to the ED today with concern of more frequent seizure frequency. Patient was recently transferred to [place] for new onset seizures related to brain masses on imaging. Patient states he was just discharged from [place] today. Patient states he was given medications including Keppra 1000mg BID and Phenytoin 100mg TID. Patient states he was given the doses of these just before leaving [place]. Patient states while in [place], he received several imaging modalities but was told to follow up this Sunday with his PCP to get set up with oncology. Patient states he was having seizures approximately every 12 hours while in the hospital. Patient states on his drive home, these seizure frequency started occurring every hour. Patient states now they are occurring every 10-20 minutes. Patient states he was told to go to the ED if these seizures were to become more frequent. Patient denies any falls or any new symptoms. Patient denies any other symptoms or concerns at this time. Patient denies fever, chills, chest pain, shortness of breath, or cough. Denies headache, neck stiff ness, change in vision, syncope, or near syncope. Denies nausea, vomiting, abdominal pain, diarrhea, constipation, or dysuria. Has not noted any blood in urine or stool. Patient has been eating and drinking appropriately. Review of systems: As per history of present illness and below otherwise all systems reviewed and negative. Past medical history: As per history of present illness and as reviewed below otherwise noncontributory. Surgical history: As per history of present illness and as reviewed below otherwise noncontributory. Social history: See social history for further information Family history: As per history of present illness and as reviewed below otherwise noncontributory. Physical exam: General: Patient is alert, oriented, and in no acute distress. Patient laying comfortably on exam table. HEENT: Atraumatic, normocephalic, pupils equal and reactive bilaterally, negative for conjunctival pallor or scleral icterus, mucous membranes moist, TMs normal bilaterally, throat clear, neck supple, nontender, trachea midline. No drooling or trismus noted. No meningeal signs. No hot potato voice noted. Lungs: Clear to auscultation, breath sounds equal bilaterally, chest nontender. Heart: S1S2, regular rate and rhythm without overt murmur Abdomen: Soft, nondistended, nontender. Negative for masses or hepatosplenomegaly. Negative for costovertebral tenderness. Pelvis: Stable nontender. Genitourinary: Deferred. Rectal: Deferred. Skin: Intact, warm, dry. No lesions or rashes noted. Extremities: Atraumatic, negative for cords or calf pain. Neurovascular unremarkable. Neuro: Awake, alert, oriented. Cranial nerves II through XII unremarkable. Cerebellum unremarkable. Motor and sensory unremarkable throughout. Exam nonfocal. Notes: Dr. Kamara verbally involved in patient care. Upon arrival, patient is not actively having a seizure. Will continue to monitor. Dr. Ruelas at [facility] in [place] was consulted on patient and is accepting of transfer. EMS not able to transfer for several hours. Patient does have seizure which lasts 30 seconds. Will arrange flight transfer. Voices understanding and is agreeable to plan of care. Denies any further questions or concerns at this time. Diagnostics: CBC, CMP, Dilantin level, Levetiracetam level Therapeutics: Phenytoin Impression: Seizure Brain masses Plan: Transfer to [facility] in [place], on T to Dr. Ruelas via flight. Definitive disposition and diagnosis as appropriate pending reevaluation and review of above. - Related Data Allergies Allergy/AdvReac Type Severity Reaction Status Date / Time amoxicillin [Amoxicillin] Allergy Rash Verified 03/05/19 19:13 codeine Allergy Swelling Verified 03/05/19 19:13 Home Meds: Home Meds Venlafaxine [Effexor XR] 150 mg PO BRK 02/26/14 [History] ALPRAZolam [Alprazolam] 1 tab PO ASDIRECTED PRN 02/02/16 [History] Diclofenac Sodium [Voltaren] 4 gm TOP QID 03/27/18 [History] Past Medical History HEENT History: Reports: Hard of Hearing Respiratory History: Reports: COPD Other Respiratory History: smokes 1-2 PPd for 35 years Gastrointestinal History: Reports: Colon Polyp Musculoskeletal History: Reports: Back Pain, Chronic, Fracture, Neck Pain, Chronic Other Musculoskeletal History: hx of fx left wrist, right clavicle, left ankle Neurological History: Reports: Headaches, Chronic, Head Trauma, Seizure Psychiatric History: Reports: Anxiety, Depression, Panic Attack Endocrine/Metabolic History: Reports: None - Infectious Disease History Infectious Disease History: Reports: None - Past Surgical History HEENT Surgical History: Reports: Other (See Below) Other HEENT Surgeries/Procedures: wisdom tooth extraction. rhinoplasty GI Surgical History: Reports: Appendectomy, Colonoscopy Male Surgical History: Reports: Vasectomy Neurological Surgical History: Reports: Laminectomy, Lumbar Spine Musculoskeletal Surgical History: Reports: Other (See Below) Other Musculoskeletal Surgeries/Procedures:: laminectomy, hx of ORIF left ankle - no hardware Social & Family History - Family History Family Medical History: Noncontributory - Tobacco Use Smoking Status *Q: Unknown Ever Smoked - Caffeine Use Caffeine Use: Reports: None - Recreational Drug Use Recreational Drug Use: No ED ROS GENERAL - Review of Systems Review Of Systems: ROS reveals no pertinent complaints other than HPI. ED EXAM, GENERAL - Physical Exam Exam: See Below (see dictation) Course - Vital Signs Last Recorded V/S: Last Vital Signs Temp 36.6 C 03/05/19 21:38 Pulse 65 03/05/19 21:38 Resp 18 03/05/19 21:38 BP 141/71 H 03/05/19 21:38 Pulse Ox 97 03/05/19 21:38 - Orders/Labs/Meds Orders: Active Orders 24 hr Category Date Time Status LEVETIRACETAM, S [REF] Stat Lab 03/05/19 19:47 Received Phenytoin 1,000 mg Med 03/05/19 21:21 Active Sodium Chloride 0.9% [Normal Saline] 250 ml IV ONETIME Medication Orders Phenytoin Sodium 1,000 mg/ (Sodium Chloride) 270 mls @ 250 mls/hr IV ONETIME ONE Stop: 03/05/19 22:25 Last Admin: 03/05/19 21:46 Dose: 250 mls/hr Labs: Laboratory Tests 03/05/19 03/05/19 03/05/19 Range/Units 19:30 19:30 19:47 WBC 13.34 H (4.0-11.0) K/uL RBC 5.08 (4.50-5.90) M/uL Hgb 16.6 (13.0-17.0) g/dL Hct 47.0 (38.0-50.0) % MCV 92.5 (80.0-98.0) fL MCH 32.7 H (27.0-32.0) pg MCHC 35.3 (31.0-37.0) g/dL RDW Std Deviation 46.3 (28.0-62.0) fl RDW Coeff of Curry 14 (11.0-15.0) % Plt Count 241 (150-400) K/uL MPV 10.50 (7.40-12.00) fL Neut % (Auto) 76.6 (48.0-80.0) % Lymph % (Auto) 12.2 L (16.0-40.0) % [place] % (Auto) 10.9 (0.0-15.0) % Eos % (Auto) 0.2 (0.0-7.0) % Baso % (Auto) 0.1 (0.0-1.5) % Neut # (Auto) 10.2 H (1.4-5.7) K/uL Lymph # (Auto) 1.6 (0.6-2.4) K/uL [place] # (Auto) 1.5 H (0.0-0.8) K/uL Eos # (Auto) 0.0 (0.0-0.7) K/uL Baso # (Auto) 0.0 (0.0-0.1) K/uL Nucleated RBC % 0.0 /100WBC Nucleated RBCs # 0 K/uL Sodium 143 (136-148) mmol/L Potassium 3.6 (3.5-5.1) mmol/L Chloride 107 (98-107) mmol/L Carbon Dioxide 24.3 (21.0-32.0) mmol/L BUN 13 (7.0-18.0) mg/dL Creatinine 0.8 (0.8-1.3) mg/dL Est Cr Clr Drug Dosing TNP Estimated GFR (MDRD) > 60.0 ml/min Glucose 109 H (74-106) mg/dL Calcium 9.4 (8.5-10.1) mg/dL Total Bilirubin 0.8 (0.2-1.0) mg/dL AST 19 (15-37) IU/L ALT 32 (14-63) IU/L Alkaline Phosphatase 66 (46-116) U/L Total Protein 6.7 (6.4-8.2) g/dL Albumin 3.9 (3.4-5.0) g/dL Globulin 2.8 (2.6-4.0) g/dL Albumin/Globulin Ratio 1.4 (0.9-1.6) Phenytoin 8.1 L (10.0-20.0) ug/mL Meds: Medications Generic Name Dose Route Start Last Admin Trade Name Freq PRN Reason Stop Dose Admin Phenytoin Sodium 1,000 mg/ 270 mls @ 250 mls/hr 03/05/19 21:21 03/05/19 21:46 Sodium Chloride IV 03/05/19 22:25 250 mls/hr ONETIME ONE Administration Discontinued Medications Generic Name Dose Route Start Last Admin Trade Name Freq PRN Reason Stop Dose Admin Fosphenytoin Sodium 1,000 mg. 70 mls @ 150 mls/hr 03/05/19 21:02 03/05/19 21: 46 pe/ Sodium Chloride IV 03/05/19 21:29 Not Given NOW ONE Departure - Departure Time of Disposition: 19:45 Disposition: DC/Tfer to Acute Hospital 02 Clinical Impression: Seizure, Brain mass - Discharge Information - My Orders Last 24 Hours: My Active Orders 03/05/19 19:47 LEVETIRACETAM, S [REF] Stat 03/05/19 21:21 Phenytoin 1,000 mg Sodium Chloride 0.9% [Normal Saline] 250 ml IV ONETIME - Assessment/Plan Last 24 Hours: My Active Orders 03/05/19 19:47 LEVETIRACETAM, S [REF] Stat 03/05/19 21:21 Phenytoin 1,000 mg Sodium Chloride 0.9% [Normal Saline] 250 ml IV ONETIME
[2019-03-05] MEDS ORDERED: Fosphenytoin 1,000 MG.PE in Sodium Chloride 0.9% 50 ML IV ONE (21:02)
[2019-03-05 21:50] LABS: CHLORIDE,CL 107 mmol/L (98-107); SODIUM,NA 143 mmol/L (136-148)
[2019-03-05 21:59] VITALS: BP 141/71
== END 2019-03-05 22:25 ==
LOC: MW.ED 19:03
DX: R56.9 Unspecified convulsions (principal); G93.89 Other specified disorders of brain; J44.9 Chronic obstructive pulmonary disease, unspecified; F32.9 Major depressive disorder, single episode, unspecified; F41.0 Panic disorder [episodic paroxysmal anxiety]; Z88.5 Allergy status to narcotic agent; Z88.0 Allergy status to penicillin; Z79.899 Other long term (current) drug therapy
CPT/HCPCS: 80053; 80177; 80185; 85025; 96365; 99285; J1165; J7050; 36415; 99284

== ENCOUNTER 2019-05-08 22:43 | Emergency (ER) | payer MEDICARE, OTHER ==
[2019-05-08] MEDS ORDERED: Morphine 2 MG/ML Syringe IVPUSH ONE ×2 (22:59→23:35)
[2019-05-08] MEDS ORDERED: Sodium Chloride 0.9% 1,000 ML IV ONE (22:59)
--- NOTE | 2019-05-08 23:00 | EDM.PDOC ---
ED HPI GENERAL MEDICAL PROBLEM - General Chief Complaint: Upper Extremity Injury/Pain Stated Complaint: PAIN IN SHOULDERS, HAS CANCER Time Seen by Provider: 05/08/19 23:00 Source of Information: Reports: Patient - History of Present Illness INITIAL COMMENTS - FREE TEXT/NARRATIVE: HISTORY AND PHYSICAL: History of present illness: [Patient presents with right shoulder pain infraspinatus distribution I can reproduce pain with palpation over in infraspinatus on the right he denies any injury or trauma no increase in activity he has history of stage IV lung cancer no fever nausea vomiting chills sweats no chest pain shortness breath headache dizziness palpitation no bowel or urine symptoms Infraspinatus pain on the right 7 out of 10 worsened by movement of the right arm ] Review of systems: As per history of present illness and below otherwise all systems reviewed and negative. Past medical history: As per history of present illness and as reviewed below otherwise noncontributory. Surgical history: As per history of present illness and as reviewed below otherwise noncontributory. Social history: No reported history of drug or alcohol abuse. Family history: As per history of present illness and as reviewed below otherwise noncontributory. Physical exam: HEENT: Atraumatic, normocephalic, pupils reactive, negative for conjunctival pallor or scleral icterus, mucous membranes moist, throat clear, neck supple, nontender, trachea midline. Lungs: Clear to auscultation, breath sounds equal bilaterally, chest nontender. Heart: S1S2, regular, negative for clicks, rubs, or JVD. Abdomen: Soft, nondistended, nontender. Negative for masses or hepatosplenomegaly. Negative for costovertebral tenderness. Pelvis: Stable nontender. Genitourinary: Deferred. Rectal: Deferred. Extremities: Atraumatic, negative for cords or calf pain. Neurovascular unremarkable. Neuro: Awake, alert, oriented. Cranial nerves II through XII unremarkable. Cerebellum unremarkable. Motor and sensory unremarkable throughout. Exam nonfocal. Diagnostics: cBC CMP UA ] EKG Therapeutics: [ normal saline Morphine Toradol [place] ] Impression: [ muscle spasm] Definitive disposition and diagnosis as appropriate pending reevaluation and review of above. right shoulder; left hip Pain Score (Numeric/FACES): 10 - Related Data Allergies Allergy/AdvReac Type Severity Reaction Status Date / Time amoxicillin [Amoxicillin] Allergy Rash Verified 05/08/19 23:06 codeine Allergy Swelling Verified 05/08/19 23:06 Home Meds: Home Meds Omeprazole 20 mg PO BID 05/08/19 [History] Phenytoin 100 mg PO TID 05/08/19 [History] Tiotropium [Spiriva HandiHaler] 18 mcg INH ASDIRECTED PRN 05/08/19 [History] Venlafaxine [Effexor XR] 75 mg PO DAILY 05/08/19 [History] dexAMETHasone [Dexamethasone] 4 mg PO DAILY 05/08/19 [History] levETIRAcetam [Levetiracetam ER] 750 mg PO Q12HR 05/08/19 [History] traZODone HCl [Trazodone HCl] 100 mg PO DAILY 05/08/19 [History] Past Medical History HEENT History: Reports: Hard of Hearing Respiratory History: Reports: COPD Other Respiratory History: smokes 1-2 PPd for 35 years Gastrointestinal History: Reports: Colon Polyp Musculoskeletal History: Reports: Back Pain, Chronic, Fracture, Neck Pain, Chronic Other Musculoskeletal History: hx of fx left wrist, right clavicle, left ankle Neurological History: Reports: Headaches, Chronic, Head Trauma, Seizure Psychiatric History: Reports: Anxiety, Depression, Panic Attack Endocrine/Metabolic History: Reports: None - Infectious Disease History Infectious Disease History: Reports: None - Past Surgical History HEENT Surgical History: Reports: Other (See Below) Other HEENT Surgeries/Procedures: wisdom tooth extraction. rhinoplasty GI Surgical History: Reports: Appendectomy, Colonoscopy Male Surgical History: Reports: Vasectomy Neurological Surgical History: Reports: Laminectomy, Lumbar Spine Musculoskeletal Surgical History: Reports: Other (See Below) Other Musculoskeletal Surgeries/Procedures:: laminectomy, hx of ORIF left ankle - no hardware Social & Family History - Family History Family Medical History: Noncontributory - Caffeine Use Caffeine Use: Reports: None Review of Systems - Review of Systems Review Of Systems: See Below ED EXAM, GENERAL - Physical Exam Exam: See Below Course - Vital Signs Last Recorded V/S: Last Vital Signs Temp 98 F 05/08/19 22:55 Pulse 92 05/08/19 22:55 Resp 18 05/08/19 22:55 BP 108/80 05/08/19 22:55 Pulse Ox 94 L 05/08/19 22:55 - Orders/Labs/Meds Orders: Active Orders 24 hr Category Date Time Status EKG Documentation Completion [RC] STAT Care 05/08/19 23:00 Active Labs: Laboratory Tests 05/08/19 05/08/19 Range/Units 23:08 23:08 WBC 2.42 L (4.0-11.0) K/uL RBC 4.97 (4.50-5.90) M/uL Hgb 16.2 (13.0-17.0) g/dL Hct 45.9 (38.0-50.0) % MCV 92.4 (80.0-98.0) fL MCH 32.6 H (27.0-32.0) pg MCHC 35.3 (31.0-37.0) g/dL RDW Std Deviation 47.0 (28.0-62.0) fl RDW Coeff of Curry 14 (11.0-15.0) % Plt Count 121 L (150-400) K/uL MPV 9.20 (7.40-12.00) fL Neut % (Auto) 54.2 (48.0-80.0) % Lymph % (Auto) 33.1 (16.0-40.0) % [place] % (Auto) 10.3 (0.0-15.0) % Eos % (Auto) 1.2 (0.0-7.0) % Baso % (Auto) 1.2 (0.0-1.5) % Neut # (Auto) 1.3 L (1.4-5.7) K/uL Lymph # (Auto) 0.8 (0.6-2.4) K/uL [place] # (Auto) 0.3 (0.0-0.8) K/uL Eos # (Auto) 0.0 (0.0-0.7) K/uL Baso # (Auto) 0.0 (0.0-0.1) K/uL Nucleated RBC % 0.0 /100WBC Nucleated RBCs # 0 K/uL Sodium 136 (136-148) mmol/L Potassium 3.7 (3.5-5.1) mmol/L Chloride 99 (98-107) mmol/L Carbon Dioxide 26.9 (21.0-32.0) mmol/L BUN 7 (7.0-18.0) mg/dL Creatinine 0.8 (0.8-1.3) mg/dL Est Cr Clr Drug Dosing 90.76 mL/min Estimated GFR (MDRD) > 60.0 ml/min Glucose 128 H (74-106) mg/dL Calcium 8.5 (8.5-10.1) mg/dL Total Bilirubin 0.4 (0.2-1.0) mg/dL AST 32 (15-37) IU/L ALT 43 (14-63) IU/L Alkaline Phosphatase 97 (46-116) U/L Total Protein 6.3 L (6.4-8.2) g/dL Albumin 3.2 L (3.4-5.0) g/dL Globulin 3.1 (2.6-4.0) g/dL Albumin/Globulin Ratio 1.0 (0.9-1.6) Meds: Medications Discontinued Medications Generic Name Dose Route Start Last Admin Trade Name Freq PRN Reason Stop Dose Admin Sodium Chloride 1,000 mls @ 999 mls/hr 05/08/19 22:59 05/08/19 23:16 Normal Saline IV 05/08/19 23:59 999 mls/hr STAT ONE Administration Ketorolac Tromethamine 30 mg 05/09/19 00:05 Toradol IVPUSH 05/09/19 00:06 ONETIME ONE Morphine Sulfate 2 mg 05/08/19 22:59 05/08/19 23:11 Morphine IVPUSH 05/08/19 23:00 2 mg ONETIME ONE Administration Morphine Sulfate 2 mg 05/08/19 23:35 05/08/19 23:41 Morphine IVPUSH 05/08/19 23:36 2 mg ONETIME ONE Administration Orphenadrine Citrate 60 mg 05/08/19 23:34 Norflex IV 05/08/19 23:35 NOW STA Departure - Departure Time of Disposition: 00:22 Disposition: Home, Self-Care 01 Condition: Good Clinical Impression: Muscle spasm - Discharge Information Referrals: Zo Goldman MD [Primary Care Provider] - Forms: ED Department Discharge Additional Instructions: The following information is given to patients seen in the emergency department who are being discharged to home. This information is to outline your options for follow-up care. We provide all patients seen in our emergency department with a follow-up referral. The need for follow-up, as well as the timing and circumstances, are variable depending upon the specifics of your emergency department visit. If you don't have a primary care physician on staff, we will provide you with a referral. We always advise you to contact your personal physician following an emergency department visit to inform them of the circumstance of the visit and for follow-up with them and/or the need for any referrals to a consulting specialist. The emergency department will also refer you to a specialist when appropriate. This referral assures that you have the opportunity for follow-up care with a specialist. All of these measure are taken in an effort to provide you with optimal care, which includes your follow-up. Under all circumstances we always encourage you to contact your private physician who remains a resource for coordinating your care. When calling for follow-up care, please make the office aware that this follow-up is from your recent emergency room visit. If for any reason you are refused follow-up, please contact the [facility] emergency department at and asked to speak to the emergency department charge nurse. - My Orders Last 24 Hours: My Active Orders 05/08/19 23:00 EKG Documentation Completion [RC] STAT - Assessment/Plan Last 24 Hours: My Active Orders 05/08/19 23:00 EKG Documentation Completion [RC] STAT
[2019-05-08 23:42] LABS: BLOOD UREA NITROGEN,BUN 7 mg/dL (7.0-18.0); CARBON DIOXIDE,CO2 26.9 mmol/L (21.0-32.0); CHLORIDE,CL 99 mmol/L (98-107); GLUCOSE RANDOM 128 mg/dL (74-106); POTASSIUM,K 3.7 mmol/L (3.5-5.1); SODIUM,NA 136 mmol/L (136-148)
[2019-05-09] MEDS ORDERED: Ketorolac 30 MG/ML SDV IVPUSH ONE (00:05)
[2019-05-09 00:36] VITALS: BP 129/77; PULSE 79
== END 2019-05-09 00:44 | disposition home or self-care (01) ==
LOC: MW.ED 22:43
DX: M62.838 Other muscle spasm (principal); J44.9 Chronic obstructive pulmonary disease, unspecified; F32.9 Major depressive disorder, single episode, unspecified; F41.9 Anxiety disorder, unspecified; F17.210 Nicotine dependence, cigarettes, uncomplicated; Z79.899 Other long term (current) drug therapy; Z88.0 Allergy status to penicillin; Z88.5 Allergy status to narcotic agent; Z85.118 Personal history of other malignant neoplasm of bronchus and lung
CPT/HCPCS: 36415; 80053; 85025; 93005; 96361; 96374; 96375; 99283; J1885; J2270; J7040

== ENCOUNTER 2019-05-13 23:07 | Emergency (ER) | payer OTHER ==
[2019-05-13] MEDS ORDERED: Sodium Chloride 0.9% 2.5 ML Syringe FLUSH PRN (23:18)
[2019-05-13] MEDS ORDERED: Sodium Chloride 0.9% 10 ML Syringe FLUSH PRN (23:18)
--- NOTE | 2019-05-13 23:46 | EDM.PDOC ---
ED HPI GENERAL MEDICAL PROBLEM - General Chief Complaint: Upper Extremity Injury/Pain Stated Complaint: RIGHT SHOULDER PAIN Time Seen by Provider: 05/13/19 23:30 - History of Present Illness INITIAL COMMENTS - FREE TEXT/NARRATIVE: HISTORY AND PHYSICAL: History of present illness: This 54-year-old male history of brain cancer who presents with concern of right shoulder pain is seen 1 week prior for this and is not known to have any metastatic disease to bone. This is worst with movement he denies shortness breath chest pain or other concern Review of systems: As per history of present illness and below otherwise all systems reviewed and negative. Past medical history: As per history of present illness and as reviewed below otherwise noncontributory. Surgical history: As per history of present illness and as reviewed below otherwise noncontributory. Social history: No reported history of drug or alcohol abuse. Family history: As per history of present illness and as reviewed below otherwise noncontributory. Physical exam: HEENT: Atraumatic, normocephalic, pupils reactive, negative for conjunctival pallor or scleral icterus, mucous membranes moist, throat clear, neck supple, nontender, trachea midline. Lungs: Clear to auscultation, breath sounds equal bilaterally, chest nontender. Heart: S1S2, regular, negative for clicks, rubs, or JVD. Abdomen: Soft, nondistended, nontender. Negative for masses or hepatosplenomegaly. Negative for costovertebral tenderness. Pelvis: Stable nontender. Genitourinary: Deferred. Rectal: Deferred. Extremities: Right shoulder has tenderness to palpation this is not well localized and decreased range of motion secondary to pain neurovascular exam CMS is unremarkable Neuro: Awake, alert, oriented. Cranial nerves II through XII unremarkable. Cerebellum unremarkable. Motor and sensory unremarkable throughout. Exam nonfocal. Diagnostics: CBC CMP troponin PT/INR chest x-ray EKG x-ray right shoulder Therapeutics: IV O2 monitor Impression: #1 right shoulder pain etiology determined Definitive disposition and diagnosis as appropriate pending reevaluation and review of above. right shoulder Pain Score (Numeric/FACES): 10 - Related Data Allergies Allergy/AdvReac Type Severity Reaction Status Date / Time amoxicillin [Amoxicillin] Allergy Rash Verified 05/13/19 23:23 codeine Allergy Swelling Verified 05/13/19 23:23 Home Meds: Home Meds Omeprazole 20 mg PO BID 05/08/19 [History] Phenytoin 100 mg PO TID 05/08/19 [History] Tiotropium [Spiriva HandiHaler] 18 mcg INH ASDIRECTED PRN 05/08/19 [History] Venlafaxine [Effexor XR] 75 mg PO DAILY 05/08/19 [History] dexAMETHasone [Dexamethasone] 4 mg PO DAILY 05/08/19 [History] levETIRAcetam [Levetiracetam ER] 750 mg PO Q12HR 05/08/19 [History] traZODone HCl [Trazodone HCl] 100 mg PO DAILY 05/08/19 [History] Acetaminophen/HYDROcodone [[place] 325-5 MG] 1 tab PO Q3HR PRN 05/13/19 [History] Cyclobenzaprine [Flexeril] 10 mg PO TID PRN 05/13/19 [History] Diclofenac Sodium/Misoprostol [Arthrotec 75 mg-200 Mcg Tab] 1 tab PO BID PRN [History] Past Medical History HEENT History: Reports: Hard of Hearing Respiratory History: Reports: COPD Other Respiratory History: smokes 1-2 PPd for 35 years Gastrointestinal History: Reports: Colon Polyp Musculoskeletal History: Reports: Back Pain, Chronic, Fracture, Neck Pain, Chronic Other Musculoskeletal History: hx of fx left wrist, right clavicle, left ankle Neurological History: Reports: Headaches, Chronic, Head Trauma, Seizure Psychiatric History: Reports: Anxiety, Depression, Panic Attack Endocrine/Metabolic History: Reports: None Oncologic (Cancer) History: Reports: Brain, Lung - Infectious Disease History Infectious Disease History: Reports: None - Past Surgical History HEENT Surgical History: Reports: Other (See Below) Other HEENT Surgeries/Procedures: wisdom tooth extraction. rhinoplasty GI Surgical History: Reports: Appendectomy, Colonoscopy Male Surgical History: Reports: Vasectomy Neurological Surgical History: Reports: Laminectomy, Lumbar Spine Musculoskeletal Surgical History: Reports: Other (See Below) Other Musculoskeletal Surgeries/Procedures:: laminectomy, hx of ORIF left ankle - no hardware Social & Family History - Family History Family Medical History: Noncontributory - Tobacco Use Smoking Status *Q: Current Every Day Smoker Years of Tobacco use: 38 Packs/Tins Daily: 1 - Caffeine Use Caffeine Use: Reports: None - Recreational Drug Use Recreational Drug Use: Yes Drug Use in Last 12 Months: Yes Recreational Drug Type: Reports: Marijuana/Hashish Review of Systems - Review of Systems Review Of Systems: ROS reveals no pertinent complaints other than HPI. ED EXAM, GENERAL - Physical Exam Exam: See Below (See dictation) Course - Vital Signs Last Recorded V/S: Last Vital Signs Temp 35.7 C 05/13/19 23:07 Pulse 81 05/14/19 00:32 Resp 16 05/14/19 00:32 BP 112/73 05/14/19 00:32 Pulse Ox 95 05/14/19 00:32 - Orders/Labs/Meds Orders: Active Orders 24 hr Category Date Time Status Cardiac Monitoring [RC] . DIRECTED Care 05/13/19 23:18 Active EKG Documentation Completion [RC] STAT Care 05/13/19 23:18 Active Saline Lock Insert [OM.PC] Stat Oth 05/13/19 23:18 Ordered Labs: Laboratory Tests 05/13/19 05/13/19 05/13/19 Range/Units 23:23 23:23 23:23 WBC 6.79 (4.0-11.0) K/uL RBC 4.70 (4.50-5.90) M/uL Hgb 15.2 (13.0-17.0) g/dL Hct 43.1 (38.0-50.0) % MCV 91.7 (80.0-98.0) fL MCH 32.3 H (27.0-32.0) pg MCHC 35.3 (31.0-37.0) g/dL RDW Std Deviation 45.8 (28.0-62.0) fl RDW Coeff of Curry 14 (11.0-15.0) % Plt Count 244 (150-400) K/uL MPV 10.20 (7.40-12.00) fL Neut % (Auto) 52.4 (48.0-80.0) % Lymph % (Auto) 31.1 (16.0-40.0) % [place] % (Auto) 15.9 H (0.0-15.0) % Eos % (Auto) 0.3 (0.0-7.0) % Baso % (Auto) 0.3 (0.0-1.5) % Neut # (Auto) 3.6 (1.4-5.7) K/uL Lymph # (Auto) 2.1 (0.6-2.4) K/uL [place] # (Auto) 1.1 H (0.0-0.8) K/uL Eos # (Auto) 0.0 (0.0-0.7) K/uL Baso # (Auto) 0.0 (0.0-0.1) K/uL Nucleated RBC % 0.0 /100WBC Nucleated RBCs # 0 K/uL INR 1.06 Sodium 137 (136-148) mmol/L Potassium 3.7 (3.5-5.1) mmol/L Chloride 103 (98-107) mmol/L Carbon Dioxide 28.1 (21.0-32.0) mmol/L BUN 10 (7.0-18.0) mg/dL Creatinine 0.8 (0.8-1.3) mg/dL Est Cr Clr Drug Dosing TNP Estimated GFR (MDRD) > 60.0 ml/min Glucose 99 (74-106) mg/dL Calcium 8.2 L (8.5-10.1) mg/dL Total Bilirubin 0.3 (0.2-1.0) mg/dL AST 28 (15-37) IU/L ALT 58 (14-63) IU/L Alkaline Phosphatase 93 (46-116) U/L Troponin I < 0.050 (0.000-0.056) ng/mL Total Protein 6.0 L (6.4-8.2) g/dL Albumin 3.3 L (3.4-5.0) g/dL Globulin 2.7 (2.6-4.0) g/dL Albumin/Globulin Ratio 1.2 (0.9-1.6) Meds: Medications Discontinued Medications Generic Name Dose Route Start Last Admin Trade Name Freq PRN Reason Stop Dose Admin Sodium Chloride 10 ml 05/13/19 23:18 Saline Flush FLUSH ASDIRECTED PRN Keep Vein Open Sodium Chloride 2.5 ml 05/13/19 23:18 Saline Flush FLUSH ASDIRECTED PRN Keep Vein Open Departure - Departure Time of Disposition: 23:46 Disposition: Home, Self-Care 01 Condition: Good Clinical Impression: Brain cancer, Shoulder pain - Discharge Information Instructions: Shoulder Pain, [id number] Referrals: PCP,Unknown [Primary Care Provider] - Forms: ED Department Discharge - My Orders Last 24 Hours: My Active Orders 05/13/19 23:18 Cardiac Monitoring [RC] . DIRECTED EKG Documentation Completion [RC] STAT Saline Lock Insert [OM.PC] Stat - Assessment/Plan Last 24 Hours: My Active Orders 05/13/19 23:18 Cardiac Monitoring [RC] . DIRECTED EKG Documentation Completion [RC] STAT Saline Lock Insert [OM.PC] Stat
[2019-05-13 23:54] LABS: BLOOD UREA NITROGEN,BUN 10 mg/dL (7.0-18.0); CARBON DIOXIDE,CO2 28.1 mmol/L (21.0-32.0); CHLORIDE,CL 103 mmol/L (98-107); GLUCOSE RANDOM 99 mg/dL (74-106); POTASSIUM,K 3.7 mmol/L (3.5-5.1); SODIUM,NA 137 mmol/L (136-148)
--- NOTE | 2019-05-14 00:19 | CR ---
INDICATION: Right shoulder pain radiating to neck TECHNIQUE: Frontal view of the chest. COMPARISON: None FINDINGS: The lungs are clear. The cardiomediastinal silhouette is normal. There is no sizable pleural effusion or pneumothorax. The visualized osseous structures are unremarkable. IMPRESSION: : No acute process. Dictated by Aurelio Gillette MD @ May 14 2019 12:17AM Signed by Dr. Aurelio Gillette @ May 14 2019 12:17AM
--- NOTE | 2019-05-14 00:21 | CR ---
Indication: Right shoulder pain Technique: Three views of the right shoulder Comparison: None Findings/Impression: No fracture is demonstrated. The glenohumeral joint is anatomically aligned. Deformity of the midshaft of the left clavicle likely relates to remote healed fracture. The surrounding soft tissues are unremarkable. Dictated by Aurelio Gillette MD @ May 14 2019 12:19AM Signed by Dr. Aurelio Gillette @ May 14 2019 12:19AM
[2019-05-14 00:35] VITALS: BP 112/73; PULSE 81
== END 2019-05-14 00:32 | disposition home or self-care (01) ==
LOC: MW.ED 23:07
DX: C71.9 Malignant neoplasm of brain, unspecified (principal); M25.511 Pain in right shoulder; F17.210 Nicotine dependence, cigarettes, uncomplicated; J44.9 Chronic obstructive pulmonary disease, unspecified; F41.9 Anxiety disorder, unspecified; F32.9 Major depressive disorder, single episode, unspecified; F41.0 Panic disorder [episodic paroxysmal anxiety]; Z88.0 Allergy status to penicillin; Z88.5 Allergy status to narcotic agent; Z85.118 Personal history of other malignant neoplasm of bronchus and lung; Z79.899 Other long term (current) drug therapy
CPT/HCPCS: 36415; 71045; 71045-26; 73030-26-RT; 73030-RT; 80053; 84484; 85025; 85610; 93005; 99283; 99284-25

== ENCOUNTER 2020-06-01 07:45 | Emergency (ER) | payer OTHER, MEDICARE, MEDICAID ==
--- NOTE | 2020-06-01 07:51 | EDM.PDOC ---
ED HPI GENERAL MEDICAL PROBLEM - General Stated Complaint: POSSIBLE COVID Time Seen by Provider: 06/01/20 07:45 Source of Information: Reports: Patient History Limitations: Reports: No Limitations - History of Present Illness INITIAL COMMENTS - FREE TEXT/NARRATIVE: 55-year-old male past medical history secondary polycythemia, lung carcinoma with brain mets status post treatment, seizure disorder presents for concern for abdominal pain, nausea and vomiting times roughly 3 episodes since earlier this morning. Patient states that he woke up with mid epigastric abdominal pain radiating diffusely associated with multiple episodes of nonbloody emesis. He notes last bowel movement yesterday was normal, denies diarrhea. Uncertain if febrile, but has had hot and cold flashes throughout the morning. Notes a baseline cough secondary to COPD but denies any changes. No known Covid exposure. No history of abdominal surgeries. abdomen Pain Score (Numeric/FACES): 4 - Related Data Allergies Allergy/AdvReac Type Severity Reaction Status Date / Time amoxicillin [Amoxicillin] Allergy Rash Verified 06/01/20 07:55 codeine Allergy Swelling Verified 06/01/20 07:55 Home Meds: Home Meds Venlafaxine [Effexor XR] 75 mg PO DAILY 05/08/19 [History] levETIRAcetam [Levetiracetam ER] 750 mg PO Q12HR 05/08/19 [History] Albuterol Sulfate [Proair Hfa] 2 puff INH ASDIRECTED PRN 06/01/20 [History] Ascorbate Calcium [Vitamin C] 500 mg PO BID 06/01/20 [History] Budesonide/Formoterol Fumarate [Symbicort 160-4.5 Mcg Inhaler] 2 puff INH BID 06/01/20 [History] Loratadine 10 mg PO DAILY 06/01/20 [History] Multivit-Min/FA/Lycopen/Lutein [Centravites 50 Plus Tablet] 1 each PO DAILY 06/01/20 [History] Non-Formulary Medication [NF Drug] 1 each INH ASDIRECTED 06/01/20 [History] Ondansetron [Zofran Odt] 8 mg PO Q4H PRN #20 tab.rapdis 06/01/20 [Rx] Varenicline Tartrate [Chantix] 1 mg PO DAILY 06/01/20 [History] Past Medical History HEENT History: Reports: Hard of Hearing Respiratory History: Reports: COPD Other Respiratory History: smokes 1-2 PPd for 35 years Gastrointestinal History: Reports: Colon Polyp Musculoskeletal History: Reports: Back Pain, Chronic, Fracture, Neck Pain, Chronic Other Musculoskeletal History: hx of fx left wrist, right clavicle, left ankle Neurological History: Reports: Headaches, Chronic, Head Trauma, Seizure Psychiatric History: Reports: Anxiety, Depression, Panic Attack Endocrine/Metabolic History: Reports: None Oncologic (Cancer) History: Reports: Brain, Lung - Infectious Disease History Infectious Disease History: Reports: None - Past Surgical History HEENT Surgical History: Reports: Other (See Below) Other HEENT Surgeries/Procedures: wisdom tooth extraction. rhinoplasty GI Surgical History: Reports: Appendectomy, Colonoscopy Male Surgical History: Reports: Vasectomy Neurological Surgical History: Reports: Laminectomy, Lumbar Spine Musculoskeletal Surgical History: Reports: Other (See Below) Other Musculoskeletal Surgeries/Procedures:: laminectomy, hx of ORIF left ankle- no hardware Social & Family History - Family History Family Medical History: No Pertinent Family History - Caffeine Use Caffeine Use: Reports: None ED ROS GENERAL - Review of Systems Review Of Systems: Comprehensive ROS is negative, except as noted in HPI. ED EXAM, GENERAL - Physical Exam Exam: See Below Exam Limited By: No Limitations General Appearance: Alert, WD/WN, No Apparent Distress Throat/Mouth: Normal Voice, No Airway Compromise Head: Atraumatic, Normocephalic Neck: Normal Inspection Respiratory/Chest: No Respiratory Distress, Lungs Clear, Normal Breath Sounds, No Accessory Muscle Use Cardiovascular: Normal Peripheral Pulses, Regular Rate, Rhythm GI/Abdominal: Soft, Other (diffuse subjective TTP ). No: Distended, Guarding Back Exam: Normal Inspection Extremities: Normal Inspection Neurological: Alert, Normal Gait Psychiatric: Normal Affect, Normal Mood Skin Exam: Warm, Dry, Intact, Normal Color #1 Interpretation EKG Date: 06/01/20 Time: 08:20 Rhythm: NSR Rate (Beats/Min): 56 [place]: Normal P-Wave: Present QRS: Normal ST-T: Normal QT: Normal ME/PQ Interval: 127 Course - Vital Signs Last Recorded V/S: Last Vital Signs Temp 95.9 F L 06/01/20 08:01 Pulse 90 06/01/20 10:04 Resp 18 06/01/20 10:04 BP 137/85 06/01/20 10:04 Pulse Ox 98 06/01/20 10:04 - Orders/Labs/Meds Orders: Active Orders 24 hr Category Date Time Status EKG 12 Lead [EKG Documentation Completion] [RC] STAT Care 06/01/20 08:17 Active CA 19-9 [REF] Stat Lab 06/01/20 09:57 Ordered Sodium Chloride 0.9% [Saline Flush] Med 06/01/20 08:19 Active 10 ml FLUSH ASDIRECTED PRN Sodium Chloride 0.9% [Saline Flush] Med 06/01/20 08:19 Active 2.5 ml FLUSH ASDIRECTED PRN Saline Lock Insert [OM.PC] Stat Oth 06/01/20 08:19 Ordered Medication Orders Sodium Chloride (Saline Flush) 10 ml FLUSH ASDIRECTED PRN PRN Reason: Keep Vein Open Last Admin: 06/01/20 08:38 Dose: 10 ml Documented by: LENO Sodium Chloride (Saline Flush) 2.5 ml FLUSH ASDIRECTED PRN PRN Reason: Keep Vein Open Last Admin: 06/01/20 08:38 Dose: 2.5 ml Documented by: LENO Labs: Laboratory Tests 06/01/20 06/01/20 06/01/20 Range/Units 07:59 07:59 08:33 WBC 13.70 H (4.0-11.0) K/uL RBC 5.59 (4.50-5.90) M/uL Hgb 19.0 H (13.0-17.0) g/dL Hct 53.2 H (38.0-50.0) % MCV 95.2 (80.0-98.0) fL MCH 34.0 H (27.0-32.0) pg MCHC 35.7 (31.0-37.0) g/dL RDW Std Deviation 44.6 (28.0-62.0) fl RDW Coeff of [place] 13 (11.0-15.0) % Plt Count 246 (150-400) K/uL MPV 10.70 (7.40-12.00) fL Neut % (Auto) 76.3 (48.0-80.0) % Lymph % (Auto) 13.4 L (16.0-40.0) % [place] % (Auto) 8.9 (0.0-15.0) % Eos % (Auto) 1.2 (0.0-7.0) % Baso % (Auto) 0.2 (0.0-1.5) % Neut # (Auto) 10.5 H (1.4-5.7) K/uL Lymph # (Auto) 1.8 (0.6-2.4) K/uL [place] # (Auto) 1.2 H (0.0-0.8) K/uL Eos # (Auto) 0.2 (0.0-0.7) K/uL Baso # (Auto) 0.0 (0.0-0.1) K/uL Nucleated RBC % 0.0 /100WBC Nucleated RBCs # 0 K/uL Lactate (0.20-2.00) mmol/L Sodium 141 (136-148) mmol/L Potassium 4.0 (3.5-5.1) mmol/L Chloride 103 (98-107) mmol/L Carbon Dioxide 30.7 (21.0-32.0) mmol/L BUN 8 (7.0-18.0) mg/dL Creatinine 0.9 (0.8-1.3) mg/dL Est Cr Clr Drug Dosing 76.74 mL/min Estimated GFR (MDRD) > 60.0 ml/min Glucose 125 H (74-106) mg/dL Calcium 9.2 (8.5-10.1) mg/dL Magnesium 1.8 (1.8-2.4) mg/dL Total Bilirubin 0.7 (0.2-1.0) mg/dL AST 21 (15-37) IU/L ALT 38 (14-63) IU/L Alkaline Phosphatase 103 (46-116) U/L Troponin I < 0.050 (0.000-0.056) ng/mL C-Reactive Protein 0.30 (0.00-0.90) mg/dL Total Protein 7.3 (6.4-8.2) g/dL Albumin 4.1 (3.4-5.0) g/dL Globulin 3.2 (2.6-4.0) g/dL Albumin/Globulin Ratio 1.3 (0.9-1.6) Lipase 449 H (73-393) U/L SARS-CoV-2 RNA (BERE) NEGATIVE (NEGATIVE) 06/01/20 Range/Units 09:48 WBC (4.0-11.0) K/uL RBC (4.50-5.90) M/uL Hgb (13.0-17.0) g/dL Hct (38.0-50.0) % MCV (80.0-98.0) fL MCH (27.0-32.0) pg MCHC (31.0-37.0) g/dL RDW Std Deviation (28.0-62.0) fl RDW Coeff of [place] (11.0-15.0) % Plt Count (150-400) K/uL MPV (7.40-12.00) fL Neut % (Auto) (48.0-80.0) % Lymph % (Auto) (16.0-40.0) % [place] % (Auto) (0.0-15.0) % Eos % (Auto) (0.0-7.0) % Baso % (Auto) (0.0-1.5) % Neut # (Auto) (1.4-5.7) K/uL Lymph # (Auto) (0.6-2.4) K/uL [place] # (Auto) (0.0-0.8) K/uL Eos # (Auto) (0.0-0.7) K/uL Baso # (Auto) (0.0-0.1) K/uL Nucleated RBC % /100WBC Nucleated RBCs # K/uL Lactate 0.9 (0.20-2.00) mmol/L Sodium (136-148) mmol/L Potassium (3.5-5.1) mmol/L Chloride (98-107) mmol/L Carbon Dioxide (21.0-32.0) mmol/L BUN (7.0-18.0) mg/dL Creatinine (0.8-1.3) mg/dL Est Cr Clr Drug Dosing mL/min Estimated GFR (MDRD) ml/min Glucose (74-106) mg/dL Calcium (8.5-10.1) mg/dL Magnesium (1.8-2.4) mg/dL Total Bilirubin (0.2-1.0) mg/dL AST (15-37) IU/L ALT (14-63) IU/L Alkaline Phosphatase (46-116) U/L Troponin I (0.000-0.056) ng/mL C-Reactive Protein (0.00-0.90) mg/dL Total Protein (6.4-8.2) g/dL Albumin (3.4-5.0) g/dL Globulin (2.6-4.0) g/dL Albumin/Globulin Ratio (0.9-1.6) Lipase (73-393) U/L SARS-CoV-2 RNA (BERE) (NEGATIVE) Meds: Medications Generic Name Dose Route Start Last Admin Trade Name Freq PRN Reason Stop Dose Admin Sodium Chloride 10 ml 06/01/20 08:19 06/01/20 08:38 Saline Flush FLUSH 10 ml ASDIRECTED PRN Administration Keep Vein Open Sodium Chloride 2.5 ml 06/01/20 08:19 06/01/20 08:38 Saline Flush FLUSH 2.5 ml ASDIRECTED PRN Administration Keep Vein Open Discontinued Medications Generic Name Dose Route Start Last Admin Trade Name Freq PRN Reason Stop Dose Admin Famotidine 20 mg 06/01/20 08:19 06/01/20 08:39 Pepcid IVPUSH 06/01/20 08:20 20 mg ONETIME ONE Administration Sodium Chloride 1,000 mls @ 999 mls/hr 06/01/20 08:19 06/01/20 08:37 Normal Saline IV 06/01/20 09:19 999 mls/hr .Bolus ONE Administration Iopamidol 100 ml 06/01/20 09:08 06/01/20 09:19 Isovue Multipack-370 (76%) IVPUSH 06/01/20 09:09 100 ml ONETIME STA Administration Morphine Sulfate 4 mg 06/01/20 08:19 06/01/20 08:38 Morphine IVPUSH 06/01/20 08:20 4 mg ONETIME ONE Administration Ondansetron HCl Confirm 06/01/20 08:19 06/01/20 08:38 Zofran Administered 06/01/20 08:20 4 mg Dose Administration 4 mg .ROUTE .STK-MED ONE Ondansetron HCl 4 mg 06/01/20 08:30 06/01/20 08:38 Zofran IVPUSH 06/01/20 08:31 4 mg ONETIME ONE Administration Ondansetron HCl 4 mg 06/01/20 10:08 06/01/20 10:13 Zofran IVPUSH 06/01/20 10:09 4 mg ONETIME ONE Administration - Re-Assessments/Exams Free Text/Narrative Re-Assessment/Exam: 06/01/20 09:59 Spoke with patient's oncologist Dr. Ann at [facility] and discussed results of labs and imaging. CA 199 pancreatic cancer tumor marker was added as a send out lab and will be available in the coming days. Dr. Ann would like to follow-up with patient for repeat PET scan in the next week. He states that he will call the patient directly and schedule follow-up. I will discharge patient with strict return precautions for fever, worsening abdominal pain, inability to tolerate p.o. Will discharge patient with antiemetics for symptom control. 06/01/20 10:12 Spoke with patient who notes that his nausea is returning. Gave him some water and will give additional dose of Zofran for symptomatic relief. Ideally would like to discharge with antiemetics and PMD /oncology follow-up, but will reassess. Patient notes [facility] at 1[facility] this afternoon which I am encouraging him to keep. Departure - Departure Time of Disposition: 10:00 Disposition: Home, Self-Care 01 Condition: Good Clinical Impression: Mesenteric mass Vomiting Qualifiers: Vomiting type: unspecified Vomiting Intractability: non-intractable Nausea presence: with nausea Qualified Code(s): R11.2 - Nausea with vomiting, unspecified - Discharge Information Prescriptions: Ondansetron [Zofran Odt] 8 mg PO Q4H PRN #20 tab.rapdis PRN Reason: Nausea Instructions: Nausea and Vomiting, Adult, [id number] Referrals: Zo Goldman MD [Primary Care Provider] - Additional Instructions: Your labs were grossly unremarkable. Your CT scan showed inflammatory changes around your pancreas which could be related to your underlying malignancy, or could represent postinflammatory changes. You will need a PET scan in order to definitively diagnose this condition. Dr. Ann should be calling you to set that up sometime this week. I have sent an antinausea medication to your pharmacy [facility]. You should stick to simple foods, broth, liquids and avoid fatty foods, spicy foods. If you are unable to keep anything down, or if your pain becomes worse, come back to the emergency department. We are always here to help. The following information is given to patients seen in the emergency department who are being discharged to home. This information is to outline your options for follow-up care. We provide all patients seen in our emergency department with a follow-up referral. The need for follow-up, as well as the timing and circumstances, are variable depending upon the specifics of your emergency department visit. If you don't have a primary care physician on staff, we will provide you with a referral. We always advise you to contact your personal physician following an emergency department visit to inform them of the circumstance of the visit and for follow-up with them and/or the need for any referrals to a consulting specialist. The emergency department will also refer you to a specialist when appropriate. This referral assures that you have the opportunity for follow-up care with a specialist. All of these measure are taken in an effort to provide you with optimal care, which includes your follow-up. Under all circumstances we always encourage you to contact your private physician who remains a resource for coordinating your care. When calling for follow-up care, please make the office aware that this follow-up is from your recent emergency room visit. If for any reason you are refused follow-up, please contact the [facility] Emergency Department at and asked to speak to the emergency department charge nurse. Please follow up with your primary care physician. If you do not have a primary care physician, see below: [facility] [address] [place] [id number] [facility] [address] [place] [id number] Sepsis Event Note (ED) - Focused Exam Vital Signs: Vital Signs Temp Pulse Resp BP Pulse Ox 06/01/20 10:04 90 18 137/85 98 06/01/20 09:26 150/74 H 06/01/20 09:24 88 98 06/01/20 08:01 95.9 F L 82 20 159/93 H 98 - My Orders Last 24 Hours: My Active Orders 06/01/20 08:17 EKG 12 Lead [EKG Documentation Completion] [RC] STAT 06/01/20 08:19 Sodium Chloride 0.9% [Saline Flush] 10 ml FLUSH ASDIRECTED PRN Sodium Chloride 0.9% [Saline Flush] 2.5 ml FLUSH ASDIRECTED PRN Saline Lock Insert [OM.PC] Stat 06/01/20 09:57 CA 19-9 [REF] Stat - Assessment/Plan Last 24 Hours: My Active Orders 06/01/20 08:17 EKG 12 Lead [EKG Documentation Completion] [RC] STAT 06/01/20 08:19 Sodium Chloride 0.9% [Saline Flush] 10 ml FLUSH ASDIRECTED PRN Sodium Chloride 0.9% [Saline Flush] 2.5 ml FLUSH ASDIRECTED PRN Saline Lock Insert [OM.PC] Stat 06/01/20 09:57 CA 19-9 [REF] Stat
[2020-06-01] MEDS ORDERED: Morphine 4 MG/ML Syringe IVPUSH ONE (08:19)
[2020-06-01] MEDS ORDERED: Ondansetron 4 MG/2 ML SDV ONE (08:19)
[2020-06-01] MEDS ORDERED: Famotidine 20 MG/2 ML SDV IVPUSH ONE (08:19)
[2020-06-01] MEDS ORDERED: Sodium Chloride 0.9% 2.5 ML Syringe FLUSH PRN (08:19)
[2020-06-01] MEDS ORDERED: Sodium Chloride 0.9% 1,000 ML IV ONE (08:19)
[2020-06-01] MEDS ORDERED: Sodium Chloride 0.9% 10 ML Syringe FLUSH PRN (08:19)
[2020-06-01] MEDS ORDERED: Ondansetron 4 MG/2 ML SDV IVPUSH ONE ×2 (08:30→10:08)
[2020-06-01 08:40] LABS: BLOOD UREA NITROGEN,BUN 8 mg/dL (7.0-18.0); CARBON DIOXIDE,CO2 30.7 mmol/L (21.0-32.0); CHLORIDE,CL 103 mmol/L (98-107); GLUCOSE RANDOM 125 mg/dL (74-106); LIPASE 449 U/L (73-393); SODIUM,NA 141 mmol/L (136-148)
--- NOTE | 2020-06-01 08:50 | CR ---
INDICATION: Cough. History of malignancy. COMPARISON: 03/02/2019 TECHNIQUE: AP upright portable single view study FINDINGS: TUBES AND LINES: None. HEART AND MEDIASTINUM: The heart size is normal. The mediastinal contour appears normal for patient age. LUNGS AND PLEURAL SPACES: The lungs appear normal.The pleural spaces are unremarkable. OSSEOUS STRUCTURES: Age-appropriate appearance. No acute focal finding. IMPRESSION: Normal single-view portable chest radiograph. Dictated by Jj Bhakta MD @ Jun 01 2020 8:47AM Signed by Dr. Jj Bhakta @ Jun 01 2020 8:49AM
[2020-06-01] MEDS ORDERED: Iopamidol 755 MG/ML 500 ML Multipack Bottle IVPUSH STA (09:08)
--- NOTE | 2020-06-01 09:25 | CT ---
INDICATION: History of lung cancer nausea and vomiting COMPARISON: None TECHNIQUE: CT examination of the abdomen and pelvis was performed following the uneventful intravenous administration of 100 cc of Isovue 370. Thin section axial images were obtained from the lung bases through the pubic symphysis. Oral contrast was not administered. Please note that all CT scans at this facility use dose modulation, iterative reconstruction, and/or weight-based dosing when appropriate to reduce radiation dose to as low as reasonably achievable. FINDINGS: LUNG BASES: The lung bases as visualized appear normal.The heart size is normal at the lung bases. LIVER/BILIARY SYSTEM:The liver is normal in size and configuration. There is no focal mass and there is no intra- or extra hepatic biliary ductal dilatation.The gall bladder appears normal. ADRENALS: Normal KIDNEYS, URETERS and BLADDER:The kidneys appear normal. No visible mass, calculus or hydronephrosis. The ureters and bladder as visualized appear normal. SPLEEN:Normal appearance. PANCREAS: Appears normal. RETROPERITONEUM and MESENTERY: There are unusual findings in the mesentery especially superiorly extending towards left upper quadrant. This appears to represent relatively dense inflammatory or postinflammatory changes though some of it appears to be well-circumscribed and masslike. It does not appear to enhance. The exact etiology of this is uncertain. This could be the sequela of recent or remote pancreatitis though the pancreas currently appears normal. This is not typical of mesenteric panniculitis pattern. This could be related to the patient`s underlying malignancy or a separate malignancy such as lymphoma. This was not described on a PET-CT of 02/25/2020. Correlation with history of pancreatitis and current pancreatic enzymes is advised. Ultimately, the patient may need a repeat PET scan. GASTROINTESTINAL SYSTEM: There is no evidence of diverticulitis, colitis, mechanical obstruction, or appendicitis. The small bowel as visualized appears normal.Extensive diverticulosis especially sigmoid without definite finding of acute diverticulitis PELVIS: No mass, adenopathy or free fluid. OSSEOUS STRUCTURES and ABDOMINAL WALL: There is an age-appropriate appearance of the osseous structures.No significant abdominal wall defect. OTHER: No free fluid or free air. IMPRESSION: 1. Abnormal mesentery in a nonspecific fashion as described above. Please review the comment regarding this finding. 2. Extensive diverticulosis especially sigmoid without evidence of acute diverticulitis or colitis or obstruction. Please note that all CT scans at this facility use dose modulation, iterative reconstruction, and/or weight-based dosing when appropriate to reduce radiation dose to as low as reasonably achievable. Dictated by Jj Bhakta MD @ Jun 01 2020 9:16AM Signed by Dr. Jj Bhakta @ Jun 01 2020 9:24AM
[2020-06-01 10:38] VITALS: BP 139/82; PULSE 50
== END 2020-06-01 10:38 | disposition home or self-care (01) ==
LOC: MW.ED 07:45
DX: K66.8 Other specified disorders of peritoneum (principal); R11.2 Nausea with vomiting, unspecified; J44.9 Chronic obstructive pulmonary disease, unspecified; F17.210 Nicotine dependence, cigarettes, uncomplicated; F41.9 Anxiety disorder, unspecified; F32.9 Major depressive disorder, single episode, unspecified; Z88.1 Allergy status to other antibiotic agents; Z88.5 Allergy status to narcotic agent; Z79.899 Other long term (current) drug therapy; Z20.828 Contact with and (suspected) exposure to other viral communicable diseases
CPT/HCPCS: 36415; 71045; 74177; 80053; 83605; 83690; 83735; 84484; 85025; 86140; 86301; 87635; 93005; 96374; 96375; 96376; 99284; J2270; J2405; J3490; J7030; Q9967; 93010; U0002

== ENCOUNTER 2020-06-01 14:58 | Observation (INO) | payer OTHER, MEDICARE, MEDICAID ==
[2020-06-01] MEDS ORDERED: diphenhydrAMINE 50 MG/ML SDV IVPUSH ONE (15:02)
[2020-06-01] MEDS ORDERED: Sodium Chloride 0.9% 2.5 ML Syringe FLUSH PRN (15:02)
[2020-06-01] MEDS ORDERED: Metoclopramide 10 MG/2 ML SDV IVPUSH ONE (15:02)
[2020-06-01] MEDS ORDERED: Sodium Chloride 0.9% 10 ML Syringe FLUSH PRN (15:02)
[2020-06-01] MEDS ORDERED: Sodium Chloride 0.9% 1,000 ML IV ONE (15:02)
[2020-06-01] MEDS ORDERED: Famotidine 20 MG/2 ML SDV IVPUSH ONE (15:02)
[2020-06-01] MEDS ORDERED: Morphine 4 MG/ML Syringe IVPUSH ONE (15:02)
--- NOTE | 2020-06-01 15:04 | EDM.PDOC ---
ED HPI GENERAL MEDICAL PROBLEM - General Stated Complaint: ABDOMINAL PAIN Time Seen by Provider: 06/01/20 14:59 Source of Information: Reports: Patient History Limitations: Reports: No Limitations - History of Present Illness INITIAL COMMENTS - FREE TEXT/NARRATIVE: 55-year-old male past medical history cancer with brain mets presents for persistent nausea vomiting and abdominal pain. Patient is here earlier this morning with similar, had labs with a white count of 13 but grossly unremarkable. He had a CT abdomen pelvis done, which showed some concerning masses versus inflammatory changes likely related to malignancy. I had a discussion with his oncologist, had sent him home with antiemetics and plan to schedule for PET scan sometime this week. Unfortunately patient at home has been unable to tolerate p.o. despite antiemetics. He was told to return to the emergency department for inability to tolerate p.o. which is why he presents this afternoon. No other changes, please see note from earlier today for more details. middle abdomen Pain Score (Numeric/FACES): 5 - Related Data Allergies Allergy/AdvReac Type Severity Reaction Status Date / Time amoxicillin [Amoxicillin] Allergy Rash Verified 06/01/20 15:21 codeine Allergy Swelling Verified 06/01/20 15:21 Home Meds: Home Meds Venlafaxine [Effexor XR] 75 mg PO DAILY 05/08/19 [History] levETIRAcetam [Levetiracetam ER] 750 mg PO Q12HR 05/08/19 [History] Albuterol Sulfate [Proair Hfa] 2 puff INH ASDIRECTED PRN 06/01/20 [History] Ascorbate Calcium [Vitamin C] 500 mg PO BID 06/01/20 [History] Budesonide/Formoterol Fumarate [Symbicort 160-4.5 Mcg Inhaler] 2 puff INH BID 06/01/20 [History] Loratadine 10 mg PO DAILY 06/01/20 [History] Multivit-Min/FA/Lycopen/Lutein [Centravites 50 Plus Tablet] 1 each PO DAILY 06/01/20 [History] Non-Formulary Medication [NF Drug] 1 each INH ASDIRECTED 06/01/20 [History] Ondansetron [Zofran Odt] 8 mg PO Q4H PRN #20 tab.rapdis 06/01/20 [Rx] Varenicline Tartrate [Chantix] 1 mg PO DAILY 06/01/20 [History] Past Medical History HEENT History: Reports: Hard of Hearing Respiratory History: Reports: COPD Other Respiratory History: smokes 1-2 PPd for 35 years Gastrointestinal History: Reports: Colon Polyp Musculoskeletal History: Reports: Back Pain, Chronic, Fracture, Neck Pain, Chronic Other Musculoskeletal History: hx of fx left wrist, right clavicle, left ankle Neurological History: Reports: Headaches, Chronic, Head Trauma, Seizure Psychiatric History: Reports: Anxiety, Depression, Panic Attack Endocrine/Metabolic History: Reports: None Oncologic (Cancer) History: Reports: Brain, Lung - Infectious Disease History Infectious Disease History: Reports: None - Past Surgical History HEENT Surgical History: Reports: Other (See Below) Other HEENT Surgeries/Procedures: wisdom tooth extraction. rhinoplasty GI Surgical History: Reports: Appendectomy, Colonoscopy Male Surgical History: Reports: Vasectomy Neurological Surgical History: Reports: Laminectomy, Lumbar Spine Musculoskeletal Surgical History: Reports: Other (See Below) Other Musculoskeletal Surgeries/Procedures:: laminectomy, hx of ORIF left ankle- no hardware Social & Family History - Family History Family Medical History: No Pertinent Family History - Caffeine Use Caffeine Use: Reports: None ED ROS GENERAL - Review of Systems Review Of Systems: Comprehensive ROS is negative, except as noted in HPI. ED EXAM, GENERAL - Physical Exam Exam: See Below Exam Limited By: No Limitations General Appearance: Alert, WD/WN, No Apparent Distress Throat/Mouth: Normal Voice, No Airway Compromise Head: Atraumatic, Normocephalic Respiratory/Chest: No Respiratory Distress, No Accessory Muscle Use Cardiovascular: Normal Peripheral Pulses, Regular Rate, Rhythm GI/Abdominal: Soft Extremities: Normal Inspection Neurological: Alert Psychiatric: Normal Affect, Normal Mood Skin Exam: Warm, Dry, Intact, Normal Color Course - Vital Signs Last Recorded V/S: Last Vital Signs Temp 96.8 F L 06/01/20 15:21 Pulse 55 L 06/01/20 15:21 Resp 18 06/01/20 15:21 BP 163/77 H 06/01/20 15:21 Pulse Ox 97 06/01/20 15:21 - Orders/Labs/Meds Orders: Active Orders 24 hr Category Date Time Status Sodium Chloride 0.9% [Saline Flush] Med 06/01/20 15:02 Active 10 ml FLUSH ASDIRECTED PRN Sodium Chloride 0.9% [Saline Flush] Med 06/01/20 15:02 Active 2.5 ml FLUSH ASDIRECTED PRN Saline Lock Insert [OM.PC] Stat Oth 06/01/20 15:02 Ordered Medication Orders Sodium Chloride (Saline Flush) 10 ml FLUSH ASDIRECTED PRN PRN Reason: Keep Vein Open Last Admin: 06/01/20 16:47 Dose: 10 ml Documented by: [id number] Sodium Chloride (Saline Flush) 2.5 ml FLUSH ASDIRECTED PRN PRN Reason: Keep Vein Open Last Admin: 06/01/20 16:47 Dose: 2.5 ml Documented by: [id number] Labs: Laboratory Tests 06/01/20 06/01/20 06/01/20 Range/Units 16:55 16:55 17:13 WBC 14.64 H (4.0-11.0) K/uL RBC 5.13 (4.50-5.90) M/uL Hgb 16.9 (13.0-17.0) g/dL Hct 49.2 (38.0-50.0) % MCV 95.9 (80.0-98.0) fL MCH 32.9 H (27.0-32.0) pg MCHC 34.3 (31.0-37.0) g/dL RDW Std Deviation 45.3 (28.0-62.0) fl RDW Coeff of Curry 13 (11.0-15.0) % Plt Count 218 (150-400) K/uL MPV 10.40 (7.40-12.00) fL Neut % (Auto) 87.0 H (48.0-80.0) % Lymph % (Auto) 6.5 L (16.0-40.0) % [place] % (Auto) 6.4 (0.0-15.0) % Eos % (Auto) 0.0 (0.0-7.0) % Baso % (Auto) 0.1 (0.0-1.5) % Neut # (Auto) 12.7 H (1.4-5.7) K/uL Lymph # (Auto) 1.0 (0.6-2.4) K/uL [place] # (Auto) 0.9 H (0.0-0.8) K/uL Eos # (Auto) 0.0 (0.0-0.7) K/uL Baso # (Auto) 0.0 (0.0-0.1) K/uL Nucleated RBC % 0.0 /100WBC Nucleated RBCs # 0 K/uL Lactate 0.9 (0.20-2.00) mmol/L Sodium 138 (136-148) mmol/L Potassium 4.2 (3.5-5.1) mmol/L Chloride 103 (98-107) mmol/L Carbon Dioxide 28.2 (21.0-32.0) mmol/L BUN 6 L (7.0-18.0) mg/dL Creatinine 0.8 (0.8-1.3) mg/dL Est Cr Clr Drug Dosing 86.33 mL/min Estimated GFR (MDRD) > 60.0 ml/min Glucose 117 H (74-106) mg/dL Calcium 9.2 (8.5-10.1) mg/dL Total Bilirubin 0.7 (0.2-1.0) mg/dL AST 27 (15-37) IU/L ALT 38 (14-63) IU/L Alkaline Phosphatase 107 (46-116) U/L Total Protein 7.0 (6.4-8.2) g/dL Albumin 3.9 (3.4-5.0) g/dL Globulin 3.1 (2.6-4.0) g/dL Albumin/Globulin Ratio 1.3 (0.9-1.6) Lipase 93 (73-393) U/L Meds: Medications Generic Name Dose Route Start Last Admin Trade Name Freq PRN Reason Stop Dose Admin Sodium Chloride 10 ml 06/01/20 15:02 06/01/20 16:47 Saline Flush FLUSH 10 ml ASDIRECTED PRN Administration Keep Vein Open Sodium Chloride 2.5 ml 06/01/20 15:02 06/01/20 16:47 Saline Flush FLUSH 2.5 ml ASDIRECTED PRN Administration Keep Vein Open Discontinued Medications Generic Name Dose Route Start Last Admin Trade Name Freq PRN Reason Stop Dose Admin Diphenhydramine HCl 25 mg 06/01/20 15:02 06/01/20 16:47 Benadryl IVPUSH 06/01/20 15:03 25 mg ONETIME ONE Administration Famotidine 20 mg 06/01/20 15:02 06/01/20 16:47 Pepcid IVPUSH 06/01/20 15:03 20 mg ONETIME ONE Administration Sodium Chloride 1,000 mls @ 999 mls/hr 06/01/20 15:02 06/01/20 16:47 Normal Saline IV 06/01/20 16:02 999 mls/hr .Bolus ONE Administration Metoclopramide HCl 10 mg 06/01/20 15:02 06/01/20 16:47 Reglan IVPUSH 06/01/20 15:03 10 mg ONETIME ONE Administration Morphine Sulfate 4 mg 06/01/20 15:02 06/01/20 16:47 Morphine IVPUSH 06/01/20 15:03 4 mg ONETIME ONE Administration - Re-Assessments/Exams Free Text/Narrative Re-Assessment/Exam: 06/01/20 15:02 Considering the history of brain cancer, will get head CT to look for metastatic disease. Will follow up results and admit patient. 06/01/20 18:[address] is unremarkable. Labs are grossly unremarkable aside from white count of 14. Lipase this afternoon is normal. Will admit for further work-up. Departure - Departure Time of Disposition: 18:08 Disposition: Admitted As Inpatient 65 Condition: Good Clinical Impression: Nausea & vomiting Qualifiers: Vomiting type: unspecified Vomiting Intractability: intractable Qualified Code(s): R11.2 - Nausea with vomiting, unspecified - Discharge Information Sepsis Event Note (ED) - Focused Exam Vital Signs: Vital Signs Temp Pulse Resp BP Pulse Ox 06/01/20 15:21 96.8 F L 55 L 18 163/77 H 97 - My Orders Last 24 Hours: My Active Orders 06/01/20 15:02 Sodium Chloride 0.9% [Saline Flush] 10 ml FLUSH ASDIRECTED PRN Sodium Chloride 0.9% [Saline Flush] 2.5 ml FLUSH ASDIRECTED PRN Saline Lock Insert [OM.PC] Stat - Assessment/Plan Last 24 Hours: My Active Orders 06/01/20 15:02 Sodium Chloride 0.9% [Saline Flush] 10 ml FLUSH ASDIRECTED PRN Sodium Chloride 0.9% [Saline Flush] 2.5 ml FLUSH ASDIRECTED PRN Saline Lock Insert [OM.PC] Stat
[2020-06-01 17:29] LABS: BLOOD UREA NITROGEN,BUN 6 mg/dL (7.0-18.0); CARBON DIOXIDE,CO2 28.2 mmol/L (21.0-32.0); CHLORIDE,CL 103 mmol/L (98-107); GLUCOSE RANDOM 117 mg/dL (74-106); LIPASE 93 U/L (73-393); POTASSIUM,K 4.2 mmol/L (3.5-5.1); SODIUM,NA 138 mmol/L (136-148)
[2020-06-01] MEDS ORDERED: Albuterol/Ipratropium 3.0-0.5 MG/3 ML Neb Soln NEB PRN (18:00)
--- NOTE | 2020-06-01 18:01 | CT ---
Indication: Nausea vomiting, history of brain cancer and metastatic disease changes Technique: Volumetric multidetector CT images of the head were obtained without the administration of low osmolar intravenous contrast. Comparison: None available Findings: There is no intra-axial or extra-axial fluid collection. There is no mass effect or midline shift. The ventricles and sulci are normal in size and position for age. There is moderate confluent periventricular hypoattenuating white matter change likely representing post treatment changes. Otherwise, the brain parenchyma is grossly preserved in attenuation and adair-white differentiation. The orbits and their contents are grossly within normal limits. The bony calvarium is grossly intact. The paranasal sinuses are clear. The mastoid air cells are well aerated. Impression: Posttreatment changes of the periventricular white matter without evidence of acute intracranial abnormality or new focal lesion. Please note that all CT scans at this facility use dose modulation, iterative reconstruction, and/or weight-based dosing when appropriate to reduce radiation dose to as low as reasonably achievable. Dictated by Chivo Ovalles MD @ Jun 01 2020 5:55PM Signed by Dr. Chivo Ovalles @ Jun 01 2020 6:00PM
[2020-06-01] MEDS ORDERED: Acetaminophen 325 MG Tab PO PRN (18:47)
[2020-06-01] MEDS ORDERED: Ondansetron 4 MG/2 ML SDV IVPUSH PRN (18:47)
[2020-06-01] MEDS ORDERED: Morphine 10 MG/ML Syringe IVPUSH PRN (18:47)
--- NOTE | 2020-06-01 18:51 | PCM.HP.2 ---
<Cornelio Powell M - Last Filed: 06/01/20 19:35> H&P History of Present Illness - General Date of Service: 06/01/20 Admit Problem/Dx: Admission Diagnosis/Problem Admission Diagnosis/Problem Vomiting Source of Information: Patient History Limitations: Reports: No Limitations - History of Present Illness Initial Comments - Free Text/Narative: 55-year-old male presents complaining of nausea, vomiting and abdominal pain. Patient has a PMH of lung cancer with brain mets, seizures, COPD and depression. Patient presented to the ER initially this morning after waking up with epigastric pain, nausea and vomiting. CT abd/pelvis showed showed mesenteric inflammatory changes vs possible mass. ER provider contacted patient's oncologist Dr. Ann who recommended outpatient PET scan. Patient was discharged from the ER with anti-emetic medication. He then returned to the ER later this evening as he was still having persistent vomiting and pain. Patient reports receiving chemotherapy every 6 weeks and last had treatment a few weeks ago. He had radiation initially when he was first diagnosed with cancer in 2019. He denies having any fevers, chills, sore throat, cough, SOB, chest pain, diarrhea, blood in stool, blood in urine, numbness or tingling in extremities. In the ER, WBC count 14,000, CMP unremarkable, lactate level normal. On his initial ER visit today his lipase was 449 but repeat now was normal. CT head ordered and was negative. CXR was negative. COVID-19 test negative. Patient given 1 L IV NS bolus, Benadryl, morphine, Reglan and Pepcid. Patient admitted for further evaluation and treatment. middle abdomen Pain Score (Numeric/FACES): 5 - Related Data Allergies/Adverse Reactions: Allergies Allergy/AdvReac Type Severity Reaction Status Date / Time amoxicillin [Amoxicillin] Allergy Rash Verified 06/01/20 20:08 codeine Allergy Swelling Verified 06/01/20 20:08 Home Medications: Home Meds Venlafaxine [Effexor XR] 75 mg PO DAILY 05/08/19 [History] levETIRAcetam [Levetiracetam ER] 750 mg PO Q12HR 05/08/19 [History] Albuterol Sulfate [Proair Hfa] 2 puff INH ASDIRECTED PRN 06/01/20 [History] Ascorbate Calcium [Vitamin C] 500 mg PO BID 06/01/20 [History] Budesonide/Formoterol Fumarate [Symbicort 160-4.5 Mcg Inhaler] 2 puff INH BID 06/01/20 [History] Loratadine 10 mg PO DAILY 06/01/20 [History] Multivit-Min/FA/Lycopen/Lutein [Centravites 50 Plus Tablet] 1 each PO DAILY 06/01/20 [History] Ondansetron [Zofran Odt] 8 mg PO Q4H PRN #20 tab.rapdis 06/01/20 [Rx] Past Medical History HEENT History: Reports: Hard of Hearing Respiratory History: Reports: COPD Other Respiratory History: smokes 1-2 PPd for 35 years Gastrointestinal History: Reports: Colon Polyp Musculoskeletal History: Reports: Back Pain, Chronic, Fracture, Neck Pain, Chronic Other Musculoskeletal History: hx of fx left wrist, right clavicle, left ankle Neurological History: Reports: Headaches, Chronic, Head Trauma, Seizure Psychiatric History: Reports: Anxiety, Depression, Panic Attack Endocrine/Metabolic History: Reports: None Oncologic (Cancer) History: Reports: Brain, Lung - Infectious Disease History Infectious Disease History: Reports: None - Past Surgical History HEENT Surgical History: Reports: Other (See Below) Other HEENT Surgeries/Procedures: wisdom tooth extraction. rhinoplasty GI Surgical History: Reports: Appendectomy, Colonoscopy Male Surgical History: Reports: Vasectomy Neurological Surgical History: Reports: Laminectomy, Lumbar Spine Musculoskeletal Surgical History: Reports: Other (See Below) Other Musculoskeletal Surgeries/Procedures:: laminectomy, hx of ORIF left ankle- no hardware Social & Family History - Family History Family Medical History: No Pertinent Family History - Caffeine Use Caffeine Use: Reports: None - Recreational Drug Use Recreational Drug Use: No H&P Review of Systems - Review of Systems: Review Of Systems: Comprehensive ROS is negative, except as noted in HPI. Exam - Exam Exam: See Below - Vital Signs Vital Signs: Last Vital Signs Temp 36.0 C L 06/01/20 15:21 Pulse 49 L 06/01/20 17:54 Resp 17 06/01/20 17:54 BP 141/75 H 06/01/20 17:54 Pulse Ox 98 06/01/20 17:54 Weight: 65.771 kg - Exam General: Alert, Oriented, Cooperative, Other (NAD) HEENT: Conjunctiva Clear, EOMI, Hearing Intact, Pupils Equal, Pupils Reactive Neck: Supple, Trachea Midline Lungs: Clear to Auscultation, Normal Respiratory Effort Cardiovascular: Regular Rate, Regular Rhythm GI/Abdominal Exam: Normal Bowel Sounds, Soft, No Distention, Other (mild ttp in epigastric region) Extremities: Normal Inspection, No Pedal Edema Peripheral Pulses: 2+: Radial (L), Radial (R) Skin: Warm, Dry, Intact Neurological: Cranial Nerves Intact, Strength Equal Bilateral, Normal Speech, Normal Tone Neuro Extensive - Mental Status: Alert, Oriented x3, Normal Mood/Affect Psychiatric: Alert, Normal Affect, Normal Mood - Patient Data Lab Results Last 24 hrs: Laboratory Results - last 24 hr 06/01/20 06/01/20 06/01/20 Range/Units 16:55 16:55 17:13 WBC 14.64 H (4.0-11.0) K/uL RBC 5.13 (4.50-5.90) M/uL Hgb 16.9 (13.0-17.0) g/dL Hct 49.2 (38.0-50.0) % MCV 95.9 (80.0-98.0) fL MCH 32.9 H (27.0-32.0) pg MCHC 34.3 (31.0-37.0) g/dL RDW Std Deviation 45.3 (28.0-62.0) fl RDW Coeff of Curry 13 (11.0-15.0) % Plt Count 218 (150-400) K/uL MPV 10.40 (7.40-12.00) fL Neut % (Auto) 87.0 H (48.0-80.0) % Lymph % (Auto) 6.5 L (16.0-40.0) % [place] % (Auto) 6.4 (0.0-15.0) % Eos % (Auto) 0.0 (0.0-7.0) % Baso % (Auto) 0.1 (0.0-1.5) % Neut # (Auto) 12.7 H (1.4-5.7) K/uL Lymph # (Auto) 1.0 (0.6-2.4) K/uL [place] # (Auto) 0.9 H (0.0-0.8) K/uL Eos # (Auto) 0.0 (0.0-0.7) K/uL Baso # (Auto) 0.0 (0.0-0.1) K/uL Nucleated RBC % 0.0 /100WBC Nucleated RBCs # 0 K/uL Lactate 0.9 (0.20-2.00) mmol/L Sodium 138 (136-148) mmol/L Potassium 4.2 (3.5-5.1) mmol/L Chloride 103 (98-107) mmol/L Carbon Dioxide 28.2 (21.0-32.0) mmol/L BUN 6 L (7.0-18.0) mg/dL Creatinine 0.8 (0.8-1.3) mg/dL Est Cr Clr Drug Dosing 86.33 mL/min Estimated GFR (MDRD) > 60.0 ml/min Glucose 117 H (74-106) mg/dL Calcium 9.2 (8.5-10.1) mg/dL Total Bilirubin 0.7 (0.2-1.0) mg/dL AST 27 (15-37) IU/L ALT 38 (14-63) IU/L Alkaline Phosphatase 107 (46-116) U/L Total Protein 7.0 (6.4-8.2) g/dL Albumin 3.9 (3.4-5.0) g/dL Globulin 3.1 (2.6-4.0) g/dL Albumin/Globulin Ratio 1.3 (0.9-1.6) Lipase 93 (73-393) U/L Result Diagrams: 06/01/20 17:13 06/01/20 16:55 Sepsis Event Note - Evaluation Sepsis Screening Result: No Definite Risk - Focused Exam Vital Signs: Vital Signs Temp Pulse Resp BP Pulse Ox 06/01/20 17:54 49 L 17 141/75 H 98 06/01/20 15:21 36.0 C L 55 L 18 163/77 H 97 - Problem List (1) Nausea & vomiting SNOMED Code(s): 73867990 ICD Code: R11.2 - NAUSEA WITH VOMITING, UNSPECIFIED Status: Acute Qualifiers: Vomiting type: unspecified Vomiting Intractability: intractable Qualified Code(s): R11.2 - Nausea with vomiting, unspecified (2) Lung cancer SNOMED Code(s): 509089305 ICD Code: C34.90 - MALIGNANT NEOPLASM OF UNSP PART OF UNSP BRONCHUS OR LUNG Status: Acute (3) Brain metastasis Status: Acute (4) COPD (chronic obstructive pulmonary disease) SNOMED Code(s): 78335897 ICD Code: J44.9 - CHRONIC OBSTRUCTIVE PULMONARY DISEASE, UNSPECIFIED Status: Acute (5) Seizure SNOMED Code(s): 32974293 ICD Code: R56.9 - UNSPECIFIED CONVULSIONS Status: Acute Problem List Initiated/Reviewed/Updated: Yes Orders Last 24hrs: Active Orders 24 hr Category Date Time Status Patient Status [ADT] Routine ADT 06/01/20 18:08 Active Oxygen Therapy [RC] PRN Care 06/01/20 18:47 Ordered Up ad Samantha [RC] ASDIRECTED Care 06/01/20 18:47 Ordered VTE/DVT Education [RC] PER UNIT ROUTINE Care 06/01/20 18:47 Ordered Vital Signs [RC] Q4H Care 06/01/20 18:47 Ordered Clear Liquid Diet [DIET] Diet 06/01/20 Dinner Ordered CBC WITH AUTO DIFF [HEME] AM Lab 06/02/20 05:11 Ordered COMPREHENSIVE METABOLIC PN,CMP [CHEM] AM Lab 06/02/20 05:11 Ordered MAGNESIUM [CHEM] AM Lab 06/02/20 05:11 Ordered PHOSPHORUS [CHEM] AM Lab 06/02/20 05:11 Ordered Acetaminophen [TylenoL] Med 06/01/20 18:47 Ordered 650 mg PO Q4H PRN Enoxaparin [Lovenox] Med 06/01/20 19:00 Ordered 40 mg SUBCUT Q24H Morphine Med 06/01/20 18:47 Ordered 2 mg IVPUSH Q4H PRN Ondansetron [Zofran] Med 06/01/20 18:47 Ordered 4 mg IVPUSH Q4H PRN Sodium Chloride 0.9% [Saline Flush] Med 06/01/20 15:02 Active 10 ml FLUSH ASDIRECTED PRN Sodium Chloride 0.9% [Saline Flush] Med 06/01/20 15:02 Active 2.5 ml FLUSH ASDIRECTED PRN Saline Lock Insert [OM.PC] Stat Oth 06/01/20 15:02 Ordered Resuscitation Status Routine Resus Stat 06/01/20 18:47 Ordered Medication Orders Sodium Chloride (Saline Flush) 10 ml FLUSH ASDIRECTED PRN PRN Reason: Keep Vein Open Last Admin: 06/01/20 16:47 Dose: 10 ml Documented by: [id number] Sodium Chloride (Saline Flush) 2.5 ml FLUSH ASDIRECTED PRN PRN Reason: Keep Vein Open Last Admin: 06/01/20 16:47 Dose: 2.5 ml Documented by: [id number] Assessment/Plan Comment:: Assessment and Plan: 1. Nausea, vomiting and abdominal pain: - Admit to med/surg. Patient received 1 L IV NS bolus in the ER. Will give addit ional 1 L IV LR @ 100 cc/hr. Will order zofran prn nausea and morphine prn pain. Will also give IV zosyn and discontinue if patient dose not tolerate secondary to allergy to amoxicillin (rash). - CT abd/pelvis done earlier today showed dense inflammatory changes though some of it appears to be well-circumscribed and masslike. Exact etiology uncertain. This could be related to patient's underlying malignancy or a separate malignancy such as lymphoma. - Oncologist Dr. Ann was contacted by ER provider earlier today who recommended PET scan for further evaluation of possible abdominal mass. 2. History of lung cancer and brain mets: - Patient's follows up with oncologist Dr. Ann. Patient on chemotherapy every 6 weeks. 3. DVT prophylaxis: - Lovenox 40 mg subcut qd. 4. Past medical history of seizures, COPD and depression: - Continue home medications. <José Luis Conn - Last Filed: 06/07/20 12:49> H&P History of Present Illness - General Admit Problem/Dx: Admission Diagnosis/Problem Admission Diagnosis/Problem Vomiting Exam - Vital Signs Vital Signs: Last Vital Signs Temp 36.9 C 06/02/20 08:00 Pulse 84 06/02/20 08:00 Resp 16 06/02/20 08:00 BP 92/58 L 06/02/20 08:00 Pulse Ox 96 06/02/20 08:00 - Patient Data Result Diagrams: 06/02/20 04:58 06/02/20 04:58 Ruben Results Last 24 hrs: Microbiology 06/01/20 18:05 Aerobic Blood Culture - Final Blood - Venous - Lab Draw NO GROWTH AFTER 5 DAYS Anaerobic Blood Culture - Final 06/01/20 19:54 Aerobic Blood Culture - Final Blood - Venous NO GROWTH AFTER 5 DAYS Anaerobic Blood Culture - Final NO GROWTH AFTER 5 DAYS Assessment/Plan Comment:: I performed a history and physical exam of the patient and discussed management with resident. I have reviewed the residents note and agree with documented findings and plan unless otherwise specified in my note.
[2020-06-01] MEDS ORDERED: Enoxaparin 40 MG/0.4 ML Syringe SUBCUT SCH (19:00)
[2020-06-01] MEDS ORDERED: Lactated Ringers 1,000 ML IV SCH (19:00)
[2020-06-01] MEDS ORDERED: Piperacillin/Tazobactam 4.5 GM in Sodium Chloride 0.9% 100 ML IV ONE (19:29)
[2020-06-01] MEDS ORDERED: methylPREDNISolone Sodium Succinate 40 MG/1 ML SDV IVPUSH ONE (19:30)
[2020-06-01] MEDS: Pantoprazole 40 MG in Sodium Chloride 0.9% 10 ML IV SCH (20:16)
[2020-06-01] MEDS ORDERED: Budesonide/Formoterol 160-4.5 MCG/Puff 6 GM Inhaler INH SCH (21:00)
[2020-06-01] MEDS ORDERED: LEVETIRACETAM 750 MG PO SCH (21:00)
[2020-06-01] MEDS: Budesonide/Formoterol 160-4.5 MCG/Puff 6 GM Inhaler INH SCH (22:36)
[2020-06-01] MEDS ORDERED: levETIRAcetam 500 MG Tab PO ONE (23:30)
[2020-06-02] MEDS: Piperacillin/Tazobactam 3.375 GM in Sodium Chloride 0.9% 50 ML IV SCH ×2 (03:24→11:10)
[2020-06-02 05:47] LABS: BLOOD UREA NITROGEN,BUN 8 mg/dL (7.0-18.0); CHLORIDE,CL 106 mmol/L (98-107); GLUCOSE RANDOM 132 mg/dL (74-106); POTASSIUM,K 4.4 mmol/L (3.5-5.1); SODIUM,NA 142 mmol/L (136-148)
[2020-06-02] MEDS ORDERED: levETIRAcetam 500 MG Tab PO SCH (07:41)
--- NOTE | 2020-06-02 08:13 | PCM.PN ---
- General Info Date of Service: 06/02/20 Subjective Update: Reports no fevers, chills, abdominal pain, nausea or vomiting overnight. Reports sleeping well. - Patient Data Vitals - Most Recent: Last Vital Signs Temp 36.6 C 06/02/20 03:28 Pulse 77 06/02/20 03:28 Resp 17 06/02/20 03:28 BP 108/58 L 06/02/20 03:28 Pulse Ox 96 06/02/20 03:28 Weight - Most Recent: 69.445 kg I&O - Last 24 Hours: Intake & Output 06/01/20 06/02/20 06/02/20 22:59 06:59 14:59 Intake Total 1210 Balance 1210 Lab Results Last 24 Hours: Laboratory Results - last 24 hr 06/01/20 06/01/20 06/01/20 Range/Units 16:55 16:55 17:13 WBC 14.64 H (4.0-11.0) K/uL RBC 5.13 (4.50-5.90) M/uL Hgb 16.9 (13.0-17.0) g/dL Hct 49.2 (38.0-50.0) % MCV 95.9 (80.0-98.0) fL MCH 32.9 H (27.0-32.0) pg MCHC 34.3 (31.0-37.0) g/dL RDW Std Deviation 45.3 (28.0-62.0) fl RDW Coeff of Curry 13 (11.0-15.0) % Plt Count 218 (150-400) K/uL MPV 10.40 (7.40-12.00) fL Neut % (Auto) 87.0 H (48.0-80.0) % Lymph % (Auto) 6.5 L (16.0-40.0) % [place] % (Auto) 6.4 (0.0-15.0) % Eos % (Auto) 0.0 (0.0-7.0) % Baso % (Auto) 0.1 (0.0-1.5) % Neut # (Auto) 12.7 H (1.4-5.7) K/uL Lymph # (Auto) 1.0 (0.6-2.4) K/uL [place] # (Auto) 0.9 H (0.0-0.8) K/uL Eos # (Auto) 0.0 (0.0-0.7) K/uL Baso # (Auto) 0.0 (0.0-0.1) K/uL Nucleated RBC % 0.0 /100WBC Nucleated RBCs # 0 K/uL Lactate 0.9 (0.20-2.00) mmol/L Sodium 138 (136-148) mmol/L Potassium 4.2 (3.5-5.1) mmol/L Chloride 103 (98-107) mmol/L Carbon Dioxide 28.2 (21.0-32.0) mmol/L BUN 6 L (7.0-18.0) mg/dL Creatinine 0.8 (0.8-1.3) mg/dL Est Cr Clr Drug Dosing 86.33 mL/min Estimated GFR (MDRD) > 60.0 ml/min Glucose 117 H (74-106) mg/dL Calcium 9.2 (8.5-10.1) mg/dL Phosphorus (2.6-4.7) mg/dL Magnesium (1.8-2.4) mg/dL Total Bilirubin 0.7 (0.2-1.0) mg/dL AST 27 (15-37) IU/L ALT 38 (14-63) IU/L Alkaline Phosphatase 107 (46-116) U/L Total Protein 7.0 (6.4-8.2) g/dL Albumin 3.9 (3.4-5.0) g/dL Globulin 3.1 (2.6-4.0) g/dL Albumin/Globulin Ratio 1.3 (0.9-1.6) Lipase 93 (73-393) U/L 06/02/20 06/02/20 Range/Units 04:58 04:58 WBC 9.65 (4.0-11.0) K/uL RBC 4.86 (4.50-5.90) M/uL Hgb 15.6 (13.0-17.0) g/dL Hct 46.5 (38.0-50.0) % MCV 95.7 (80.0-98.0) fL MCH 32.1 H (27.0-32.0) pg MCHC 33.5 (31.0-37.0) g/dL RDW Std Deviation 45.3 (28.0-62.0) fl RDW Coeff of Curry 13 (11.0-15.0) % Plt Count 216 (150-400) K/uL MPV 10.40 (7.40-12.00) fL Neut % (Auto) 86.0 H (48.0-80.0) % Lymph % (Auto) 9.9 L (16.0-40.0) % [place] % (Auto) 4.0 (0.0-15.0) % Eos % (Auto) 0.0 (0.0-7.0) % Baso % (Auto) 0.1 (0.0-1.5) % Neut # (Auto) 8.3 H (1.4-5.7) K/uL Lymph # (Auto) 1.0 (0.6-2.4) K/uL [place] # (Auto) 0.4 (0.0-0.8) K/uL Eos # (Auto) 0.0 (0.0-0.7) K/uL Baso # (Auto) 0.0 (0.0-0.1) K/uL Nucleated RBC % 0.0 /100WBC Nucleated RBCs # 0 K/uL Lactate (0.20-2.00) mmol/L Sodium 142 (136-148) mmol/L Potassium 4.4 (3.5-5.1) mmol/L Chloride 106 (98-107) mmol/L Carbon Dioxide 29.0 (21.0-32.0) mmol/L BUN 8 (7.0-18.0) mg/dL Creatinine 1.1 (0.8-1.3) mg/dL Est Cr Clr Drug Dosing 62.79 mL/min Estimated GFR (MDRD) > 60.0 ml/min Glucose 132 H (74-106) mg/dL Calcium 8.8 (8.5-10.1) mg/dL Phosphorus 4.7 (2.6-4.7) mg/dL Magnesium 1.8 (1.8-2.4) mg/dL Total Bilirubin 0.8 (0.2-1.0) mg/dL AST 22 (15-37) IU/L ALT 31 (14-63) IU/L Alkaline Phosphatase 86 (46-116) U/L Total Protein 5.8 L (6.4-8.2) g/dL Albumin 3.1 L (3.4-5.0) g/dL Globulin 2.7 (2.6-4.0) g/dL Albumin/Globulin Ratio 1.2 (0.9-1.6) Lipase (73-393) U/L Ruben Results Last 24 Hours: Microbiology 06/01/20 18:05 Anaerobic Blood Culture - Final Blood - Venous - Lab Draw Med Orders - Current: Current Medications Acetaminophen (Tylenol) 650 mg PO Q4H PRN PRN Reason: Pain (Mild 1-3)/fever Albuterol/Ipratropium (Duoneb 3.0-0.5 Mg/3 Ml) 3 ml NEB Q6HRRT PRN PRN Reason: Dyspnea Budesonide/Formoterol Fumarate (Symbicort 160-4.5 Mcg) 0 gm INH BID [facility] Last Admin: 06/01/20 22:36 Dose: 2 puff Documented by: Enoxaparin Sodium (Lovenox) 40 mg SUBCUT Q24H [facility] Last Admin: 06/01/20 20:16 Dose: 40 mg Documented by: Pantoprazole Sodium 40 mg/ (Sodium Chloride) 10 mls @ 300 mls/hr IV DAILY [facility] Last Admin: 06/01/20 20:16 Dose: 300 mls/hr Documented by: Piperacillin Sod/Tazobactam (Sod 3.375 gm/ Sodium Chloride) 50 mls @ 100 mls/hr IV Q8H [facility] Last Admin: 06/02/20 03:24 Dose: 100 mls/hr Documented by: Levetiracetam (Keppra) 750 mg PO Q12HR [facility] Loratadine (Claritin) 10 mg PO DAILY [facility] Morphine Sulfate (Morphine) 2 mg IVPUSH Q4H PRN PRN Reason: Pain (severe 7-10) Stop: 06/02/20 18:48 Ondansetron HCl (Zofran) 4 mg IVPUSH Q4H PRN PRN Reason: Nausea Sodium Chloride (Saline Flush) 10 ml FLUSH ASDIRECTED PRN PRN Reason: Keep Vein Open Last Admin: 06/01/20 16:47 Dose: 10 ml Documented by: Sodium Chloride (Saline Flush) 2.5 ml FLUSH ASDIRECTED PRN PRN Reason: Keep Vein Open Last Admin: 06/01/20 16:47 Dose: 2.5 ml Documented by: Venlafaxine HCl (Effexor Xr) 75 mg PO DAILY [facility] Discontinued Medications Budesonide/Formoterol Fumarate (Symbicort 160-4.5 Mcg) 0 gm INH BID [facility] Diphenhydramine HCl (Benadryl) 25 mg IVPUSH ONETIME ONE Stop: 06/01/20 15:03 Last Admin: 06/01/20 16:47 Dose: 25 mg Documented by: Famotidine (Pepcid) 20 mg IVPUSH ONETIME ONE Stop: 06/01/20 15:03 Last Admin: 06/01/20 16:47 Dose: 20 mg Documented by: Sodium Chloride (Normal Saline) 1,000 mls @ 999 mls/hr IV .Bolus ONE Stop: 06/01/20 16:02 Last Admin: 06/01/20 16:47 Dose: 999 mls/hr Documented by: Lactated Ringer's (Ringers, Lactated) 1,000 mls @ 100 mls/hr IV ASDIRECTED [facility] Stop: 06/02/20 04:59 Last Admin: 06/01/20 22:38 Dose: 100 mls/hr Documented by: Piperacillin Sod/Tazobactam (Sod 4.5 gm/ Sodium Chloride) 100 mls @ 100 mls/hr IV ONETIME ONE Stop: 06/01/20 20:28 Last Admin: 06/01/20 20:16 Dose: 100 mls/hr Documented by: Levetiracetam (Keppra) 750 mg PO ONETIME ONE Stop: 06/01/20 23:31 Last Admin: 06/01/20 23:35 Dose: 750 mg Documented by: Methylprednisolone Sodium Succinate (Solu-Medrol) 40 mg IVPUSH ONETIME ONE Stop: 06/01/20 19:31 Last Admin: 06/01/20 20:16 Dose: 40 mg Documented by: Metoclopramide HCl (Reglan) 10 mg IVPUSH ONETIME ONE Stop: 06/01/20 15:03 Last Admin: 06/01/20 16:47 Dose: 10 mg Documented by: Morphine Sulfate (Morphine) 4 mg IVPUSH ONETIME ONE Stop: 06/01/20 15:03 Last Admin: 06/01/20 16:47 Dose: 4 mg Documented by: Non-Formulary Medication (Levetiracetam [Levetiracetam Er]) 750 mg PO Q12HR [facility] Last Admin: 06/01/20 23:17 Dose: Not Given Documented by: - Exam General: Alert, Oriented, Cooperative, No Acute Distress Lungs: Clear to Auscultation, Normal Respiratory Effort Cardiovascular: Regular Rate, Regular Rhythm GI/Abdominal Exam: Normal Bowel Sounds, Soft, Non-Tender, No Distention Extremities: Normal Inspection, No Pedal Edema Sepsis Event Note - Evaluation Sepsis Screening Result: No Definite Risk - Focused Exam Vital Signs: Vital Signs Temp Pulse Resp BP Pulse Ox 06/02/20 03:28 36.6 C 77 17 108/58 L 96 06/01/20 23:35 36.8 C 68 17 138/77 94 L - Problem List & Annotations (1) Nausea & vomiting SNOMED Code(s): 85188222 Code(s): R11.2 - NAUSEA WITH VOMITING, UNSPECIFIED Status: Acute Current Visit: Yes Qualifiers: Vomiting type: unspecified Vomiting Intractability: intractable Qualified Code(s): R11.2 - Nausea with vomiting, unspecified (2) Lung cancer SNOMED Code(s): 205226694 Code(s): C34.90 - MALIGNANT NEOPLASM OF UNSP PART OF UNSP BRONCHUS OR LUNG Status: Acute Current Visit: Yes (3) Brain metastasis Status: Acute Current Visit: Yes (4) COPD (chronic obstructive pulmonary disease) SNOMED Code(s): 14967665 Code(s): J44.9 - CHRONIC OBSTRUCTIVE PULMONARY DISEASE, UNSPECIFIED Status: Acute Current Visit: Yes (5) Seizure SNOMED Code(s): 15329410 Code(s): R56.9 - UNSPECIFIED CONVULSIONS Status: Acute Current Visit: No - Problem List Review Problem List Initiated/Reviewed/Updated: Yes - My Orders Last 24 Hours: My Active Orders 06/01/20 Dinner Clear Liquid Diet [DIET] 06/01/20 18:00 Albuterol/Ipratropium [DuoNeb 3.0-0.5 MG/3 ML] 3 ml NEB Q6HRRT PRN 06/01/20 18:05 CULTURE BLOOD [BC] Stat 06/01/20 18:47 Oxygen Therapy [RC] PRN Up ad Samantha [RC] ASDIRECTED VTE/DVT Education [RC] PER UNIT ROUTINE Vital Signs [RC] Q4H Acetaminophen [TylenoL] 650 mg PO Q4H PRN Morphine 2 mg IVPUSH Q4H PRN Ondansetron [Zofran] 4 mg IVPUSH Q4H PRN Resuscitation Status Routine 06/01/20 18:57 RT Aerosol Therapy [RC] ASDIRECTED RT Post Treatment Assessment [RC] Click to Edit RT Pre-Treatment Assessment [RC] Click to Edit 06/01/20 19:00 Enoxaparin [Lovenox] 40 mg SUBCUT Q24H 06/01/20 19:30 Pantoprazole [ProTONIX IV] 40 mg Sodium Chloride 0.9% [Normal Saline] 10 ml IV DAILY Blood Culture x2 Reflex Set [OM.PC] Stat 06/01/20 19:54 CULTURE BLOOD [BC] Stat 06/01/20 21:00 Budesonide/Formoterol [Symbicort 160-4.5 MCG] See Dose Instructions INH BID 06/02/20 03:30 Piperacillin/Tazobactam [Piperacil-Tazobact] 3.375 gm Sodium Chloride 0.9% [Normal Saline] 50 ml IV Q8H 06/02/20 07:41 levETIRAcetam [Keppra] 750 mg PO Q12HR 06/02/20 09:00 Loratadine [Claritin] 10 mg PO DAILY Venlafaxine [Effexor XR] 75 mg PO DAILY - Plan Plan:: Assessment and Plan: 1. Nausea, vomiting and abdominal pain, resolved: - 1 L IV LR @ 100 cc/hr. Zofran prn nausea and morphine prn pain. Patient on IV zosyn. - CT abd/pelvis showed dense inflammatory changes though some of it appears to be well-circumscribed and masslike. Exact etiology uncertain. This could be related to patient's underlying malignancy or a separate malignancy such as lymphoma. - Oncologist Dr. Ann was contacted by ER provider earlier today who recommended PET scan for further evaluation of possible abdominal mass. 2. History of lung cancer and brain mets: - Patient's follows up with oncologist Dr. Ann. Patient on chemotherapy every 6 weeks. 3. DVT prophylaxis: - Lovenox 40 mg subcut qd. 4. Past medical history of seizures, COPD and depression: - Continue home medications.
[2020-06-02] MEDS ORDERED: Venlafaxine 75 MG Cap.ER PO SCH (09:00)
[2020-06-02] MEDS ORDERED: Loratadine 10 MG Tab PO SCH (09:00)
[2020-06-02] MEDS: Pantoprazole 40 MG in Sodium Chloride 0.9% 10 ML IV SCH (09:10)
[2020-06-02 09:17] VITALS: BP 92/58; PULSE 84
--- NOTE | 2020-06-02 10:40 | PCM.DCSUM1 ---
<Cornelio Powell - Last Filed: 06/02/20 13:06> Discharge Summary - Hospital Course Free Text/Narrative:: 55-year-old male admitted for nausea, vomiting and abdominal pain. He has a PMH of lung cancer with brain mets, seizures, COPD and depression. Patient follows up with [facility] oncologist Dr. Ann. He is undergoing chemotherapy and receives treatment every 6 weeks. On admission, WBC count was 14, lipase was 449 but then normalized, lactate level was normal. CT head was negative. COVID-19 test negative. CXR negative. CT abd/pelvis showed dense mesenteric inflammatory changes though some of it appears to be well-circumscribed and mass like. Exact etiology uncertain. This could be related to patiet's underlying malignancy or a separate malignancy such as lymphoma. Oncologist Dr. Ann was contacted by ER provider prior to admission and Dr. Ann recommended close out-patient follow- up with oncology and will require PET scan. Oncology will be contacting patient to setup appointment and PET scan scheduling. Patient was admitted due to vomiting, abdominal pain and unable to tolerate PO. He was treated with IV fluids, zofran prn and morphine prn. He was also started on IV zosyn. The following morning, patient reported resolution of nausea, vomiting and abdominal pain. His WBC count normalized as well. He was able to tolerate soft diet and was discharged in stable condition. He was advised to follow-up with his oncologist Dr. Ann within 1 week for further evaluation and PET scan imaging. Patient verbalized understanding. - Discharge Data Discharge Date: 06/02/20 Discharge Disposition: Home, Self-Care 01 Condition: Stable - Referral to Home Health Primary Care Physician: Jordan Garcia NP - Discharge Diagnosis/Problem(s) (1) Nausea & vomiting SNOMED Code(s): 40794451 ICD Code: R11.2 - NAUSEA WITH VOMITING, UNSPECIFIED Status: Acute Qualifiers: Vomiting type: unspecified Vomiting Intractability: intractable Qualified Code(s): R11.2 - Nausea with vomiting, unspecified (2) Lung cancer SNOMED Code(s): 405914427 ICD Code: C34.90 - MALIGNANT NEOPLASM OF UNSP PART OF UNSP BRONCHUS OR LUNG Status: Acute (3) Brain metastasis Status: Acute (4) COPD (chronic obstructive pulmonary disease) SNOMED Code(s): 51108816 ICD Code: J44.9 - CHRONIC OBSTRUCTIVE PULMONARY DISEASE, UNSPECIFIED Status: Acute (5) Seizure SNOMED Code(s): 95382926 ICD Code: R56.9 - UNSPECIFIED CONVULSIONS Status: Acute - Patient Instructions Diet: Usual Diet as Tolerated Activity: As Tolerated Notify Provider of: Fever, Increased Pain, Swelling and Redness, Drainage, Nausea and/or Vomiting - Discharge Plan *PRESCRIPTION DRUG MONITORING PROGRAM REVIEWED*: Not Applicable *COPY OF PRESCRIPTION DRUG MONITORING REPORT IN PATIENT PIOTR: Not Applicable Home Medications: Home Meds Venlafaxine [Effexor XR] 75 mg PO DAILY 05/08/19 [History] levETIRAcetam [Levetiracetam ER] 750 mg PO Q12HR 05/08/19 [History] Albuterol Sulfate [Proair Hfa] 2 puff INH ASDIRECTED PRN 06/01/20 [History] Ascorbate Calcium [Vitamin C] 500 mg PO BID 06/01/20 [History] Budesonide/Formoterol Fumarate [Symbicort 160-4.5 Mcg Inhaler] 2 puff INH BID 06/01/20 [History] Loratadine 10 mg PO DAILY 06/01/20 [History] Multivit-Min/FA/Lycopen/Lutein [Centravites 50 Plus Tablet] 1 each PO DAILY 06/01/20 [History] Ondansetron [Zofran Odt] 8 mg PO Q4H PRN #20 tab.rapdis 06/01/20 [Rx] Oxygen Therapy Mode: Room Air Patient Handouts: Chronic Obstructive Pulmonary Disease, [id number], Nausea and Vomiting, Adult, [id number] Forms: ED Department Discharge Referrals: Flory Soni NP [Physician] - 06/10/20 9:20 am Jordan Garcia NP [Primary Care Provider] - (Please make a follow up appointment with your Primary doctor.) - Discharge Summary/Plan Comment DC Time >30 min.: No - Patient Data Vitals - Most Recent: Last Vital Signs Temp 36.9 C 06/02/20 08:00 Pulse 84 06/02/20 08:00 Resp 16 06/02/20 08:00 BP 92/58 L 06/02/20 08:00 Pulse Ox 96 06/02/20 08:00 Weight - Most Recent: 69.445 kg I&O - Last 24 hours: Intake & Output 06/01/20 06/02/20 06/02/20 22:59 06:59 14:59 Intake Total 1210 Balance 1210 Lab Results - Last 24 hrs: Laboratory Results - last 24 hr 06/01/20 06/01/20 06/01/20 Range/Units 16:55 16:55 17:13 WBC 14.64 H (4.0-11.0) K/uL RBC 5.13 (4.50-5.90) M/uL Hgb 16.9 (13.0-17.0) g/dL Hct 49.2 (38.0-50.0) % MCV 95.9 (80.0-98.0) fL MCH 32.9 H (27.0-32.0) pg MCHC 34.3 (31.0-37.0) g/dL RDW Std Deviation 45.3 (28.0-62.0) fl RDW Coeff of Curry 13 (11.0-15.0) % Plt Count 218 (150-400) K/uL MPV 10.40 (7.40-12.00) fL Neut % (Auto) 87.0 H (48.0-80.0) % Lymph % (Auto) 6.5 L (16.0-40.0) % Rooks % (Auto) 6.4 (0.0-15.0) % Eos % (Auto) 0.0 (0.0-7.0) % Baso % (Auto) 0.1 (0.0-1.5) % Neut # (Auto) 12.7 H (1.4-5.7) K/uL Lymph # (Auto) 1.0 (0.6-2.4) K/uL Rooks # (Auto) 0.9 H (0.0-0.8) K/uL Eos # (Auto) 0.0 (0.0-0.7) K/uL Baso # (Auto) 0.0 (0.0-0.1) K/uL Nucleated RBC % 0.0 /100WBC Nucleated RBCs # 0 K/uL Lactate 0.9 (0.20-2.00) mmol/L Sodium 138 (136-148) mmol/L Potassium 4.2 (3.5-5.1) mmol/L Chloride 103 (98-107) mmol/L Carbon Dioxide 28.2 (21.0-32.0) mmol/L BUN 6 L (7.0-18.0) mg/dL Creatinine 0.8 (0.8-1.3) mg/dL Est Cr Clr Drug Dosing 86.33 mL/min Estimated GFR (MDRD) > 60.0 ml/min Glucose 117 H (74-106) mg/dL Calcium 9.2 (8.5-10.1) mg/dL Phosphorus (2.6-4.7) mg/dL Magnesium (1.8-2.4) mg/dL Total Bilirubin 0.7 (0.2-1.0) mg/dL AST 27 (15-37) IU/L ALT 38 (14-63) IU/L Alkaline Phosphatase 107 (46-116) U/L Total Protein 7.0 (6.4-8.2) g/dL Albumin 3.9 (3.4-5.0) g/dL Globulin 3.1 (2.6-4.0) g/dL Albumin/Globulin Ratio 1.3 (0.9-1.6) Lipase 93 (73-393) U/L 06/02/20 06/02/20 Range/Units 04:58 04:58 WBC 9.65 (4.0-11.0) K/uL RBC 4.86 (4.50-5.90) M/uL Hgb 15.6 (13.0-17.0) g/dL Hct 46.5 (38.0-50.0) % MCV 95.7 (80.0-98.0) fL MCH 32.1 H (27.0-32.0) pg MCHC 33.5 (31.0-37.0) g/dL RDW Std Deviation 45.3 (28.0-62.0) fl RDW Coeff of Curry 13 (11.0-15.0) % Plt Count 216 (150-400) K/uL MPV 10.40 (7.40-12.00) fL Neut % (Auto) 86.0 H (48.0-80.0) % Lymph % (Auto) 9.9 L (16.0-40.0) % Rooks % (Auto) 4.0 (0.0-15.0) % Eos % (Auto) 0.0 (0.0-7.0) % Baso % (Auto) 0.1 (0.0-1.5) % Neut # (Auto) 8.3 H (1.4-5.7) K/uL Lymph # (Auto) 1.0 (0.6-2.4) K/uL Rooks # (Auto) 0.4 (0.0-0.8) K/uL Eos # (Auto) 0.0 (0.0-0.7) K/uL Baso # (Auto) 0.0 (0.0-0.1) K/uL Nucleated RBC % 0.0 /100WBC Nucleated RBCs # 0 K/uL Lactate (0.20-2.00) mmol/L Sodium 142 (136-148) mmol/L Potassium 4.4 (3.5-5.1) mmol/L Chloride 106 (98-107) mmol/L Carbon Dioxide 29.0 (21.0-32.0) mmol/L BUN 8 (7.0-18.0) mg/dL Creatinine 1.1 (0.8-1.3) mg/dL Est Cr Clr Drug Dosing 62.79 mL/min Estimated GFR (MDRD) > 60.0 ml/min Glucose 132 H (74-106) mg/dL Calcium 8.8 (8.5-10.1) mg/dL Phosphorus 4.7 (2.6-4.7) mg/dL Magnesium 1.8 (1.8-2.4) mg/dL Total Bilirubin 0.8 (0.2-1.0) mg/dL AST 22 (15-37) IU/L ALT 31 (14-63) IU/L Alkaline Phosphatase 86 (46-116) U/L Total Protein 5.8 L (6.4-8.2) g/dL Albumin 3.1 L (3.4-5.0) g/dL Globulin 2.7 (2.6-4.0) g/dL Albumin/Globulin Ratio 1.2 (0.9-1.6) Lipase (73-393) U/L [facility] Results - Last 24 hrs: Microbiology 06/01/20 18:05 Anaerobic Blood Culture - Final Blood - Venous - Lab Draw Med Orders - Current: Current Medications Acetaminophen (Tylenol) 650 mg PO Q4H PRN PRN Reason: Pain (Mild 1-3)/fever Albuterol/Ipratropium (Duoneb 3.0-0.5 Mg/3 Ml) 3 ml NEB Q6HRRT PRN PRN Reason: Dyspnea Budesonide/Formoterol Fumarate (Symbicort 160-4.5 Mcg) 0 gm INH BID [facility] Last Admin: 06/01/20 22:36 Dose: 2 puff Documented by: Enoxaparin Sodium (Lovenox) 40 mg SUBCUT Q24H [facility] Last Admin: 06/01/20 20:16 Dose: 40 mg Documented by: Pantoprazole Sodium 40 mg/ (Sodium Chloride) 10 mls @ 300 mls/hr IV DAILY [facility] Last Admin: 06/02/20 09:10 Dose: 300 mls/hr Documented by: Piperacillin Sod/Tazobactam (Sod 3.375 gm/ Sodium Chloride) 50 mls @ 100 mls/hr IV Q8H [facility] Last Admin: 06/02/20 03:24 Dose: 100 mls/hr Documented by: Levetiracetam (Keppra) 750 mg PO Q12HR [facility] Last Admin: 06/02/20 09:52 Dose: 750 mg Documented by: Loratadine (Claritin) 10 mg PO DAILY [facility] Last Admin: 06/02/20 09:51 Dose: 10 mg Documented by: Morphine Sulfate (Morphine) 2 mg IVPUSH Q4H PRN PRN Reason: Pain (severe 7-10) Stop: 06/02/20 18:48 Ondansetron HCl (Zofran) 4 mg IVPUSH Q4H PRN PRN Reason: Nausea Sodium Chloride (Saline Flush) 10 ml FLUSH ASDIRECTED PRN PRN Reason: Keep Vein Open Last Admin: 06/01/20 16:47 Dose: 10 ml Documented by: Sodium Chloride (Saline Flush) 2.5 ml FLUSH ASDIRECTED PRN PRN Reason: Keep Vein Open Last Admin: 06/01/20 16:47 Dose: 2.5 ml Documented by: Venlafaxine HCl (Effexor Xr) 75 mg PO DAILY [facility] Last Admin: 06/02/20 09:52 Dose: 75 mg Documented by: Discontinued Medications Budesonide/Formoterol Fumarate (Symbicort 160-4.5 Mcg) 0 gm INH BID [facility] Diphenhydramine HCl (Benadryl) 25 mg IVPUSH ONETIME ONE Stop: 06/01/20 15:03 Last Admin: 06/01/20 16:47 Dose: 25 mg Documented by: Famotidine (Pepcid) 20 mg IVPUSH ONETIME ONE Stop: 06/01/20 15:03 Last Admin: 06/01/20 16:47 Dose: 20 mg Documented by: Sodium Chloride (Normal Saline) 1,000 mls @ 999 mls/hr IV .Bolus ONE Stop: 06/01/20 16:02 Last Admin: 06/01/20 16:47 Dose: 999 mls/hr Documented by: Lactated Ringer's (Ringers, Lactated) 1,000 mls @ 100 mls/hr IV ASDIRECTED [facility] Stop: 06/02/20 04:59 Last Admin: 06/01/20 22:38 Dose: 100 mls/hr Documented by: Piperacillin Sod/Tazobactam (Sod 4.5 gm/ Sodium Chloride) 100 mls @ 100 mls/hr IV ONETIME ONE Stop: 06/01/20 20:28 Last Admin: 06/01/20 20:16 Dose: 100 mls/hr Documented by: Levetiracetam (Keppra) 750 mg PO ONETIME ONE Stop: 06/01/20 23:31 Last Admin: 06/01/20 23:35 Dose: 750 mg Documented by: Methylprednisolone Sodium Succinate (Solu-Medrol) 40 mg IVPUSH ONETIME ONE Stop: 06/01/20 19:31 Last Admin: 06/01/20 20:16 Dose: 40 mg Documented by: Metoclopramide HCl (Reglan) 10 mg IVPUSH ONETIME ONE Stop: 06/01/20 15:03 Last Admin: 06/01/20 16:47 Dose: 10 mg Documented by: Morphine Sulfate (Morphine) 4 mg IVPUSH ONETIME ONE Stop: 06/01/20 15:03 Last Admin: 06/01/20 16:47 Dose: 4 mg Documented by: Non-Formulary Medication (Levetiracetam [Levetiracetam Er]) 750 mg PO Q12HR [facility] Last Admin: 06/01/20 23:17 Dose: Not Given Documented by: <José Luis Conn - Last Filed: 06/07/20 12:42> Discharge Summary - Hospital Course Free Text/Narrative:: I have seen and evaluated the patient and agree with the residents note unless specified in my note - Referral to Home Health Primary Care Physician: Jordan Garcia NP - Patient Data Vitals - Most Recent: Last Vital Signs Temp 36.9 C 06/02/20 08:00 Pulse 84 06/02/20 08:00 Resp 16 06/02/20 08:00 BP 92/58 L 06/02/20 08:00 Pulse Ox 96 06/02/20 08:00 [facility] Results - Last 24 hrs: Microbiology 06/01/20 18:05 Aerobic Blood Culture - Final Blood - Venous - Lab Draw NO GROWTH AFTER 5 DAYS Anaerobic Blood Culture - Final 06/01/20 19:54 Aerobic Blood Culture - Final Blood - Venous NO GROWTH AFTER 5 DAYS Anaerobic Blood Culture - Final NO GROWTH AFTER 5 DAYS Med Orders - Current: Current Medications Discontinued Medications Acetaminophen (Tylenol) 650 mg PO Q4H PRN PRN Reason: Pain (Mild 1-3)/fever Albuterol/Ipratropium (Duoneb 3.0-0.5 Mg/3 Ml) 3 ml NEB Q6HRRT PRN PRN Reason: Dyspnea Budesonide/Formoterol Fumarate (Symbicort 160-4.5 Mcg) 0 gm INH BID [facility] Budesonide/Formoterol Fumarate (Symbicort 160-4.5 Mcg) 0 gm INH BID [facility] Last Admin: 06/02/20 11:16 Dose: 2 puff Documented by: Diphenhydramine HCl (Benadryl) 25 mg IVPUSH ONETIME ONE Stop: 06/01/20 15:03 Last Admin: 06/01/20 16:47 Dose: 25 mg Documented by: Enoxaparin Sodium (Lovenox) 40 mg SUBCUT Q24H [facility] Last Admin: 06/01/20 20:16 Dose: 40 mg Documented by: Famotidine (Pepcid) 20 mg IVPUSH ONETIME ONE Stop: 06/01/20 15:03 Last Admin: 06/01/20 16:47 Dose: 20 mg Documented by: Sodium Chloride (Normal Saline) 1,000 mls @ 999 mls/hr IV .Bolus ONE Stop: 06/01/20 16:02 Last Admin: 06/01/20 16:47 Dose: 999 mls/hr Documented by: Lactated Ringer's (Ringers, Lactated) 1,000 mls @ 100 mls/hr IV ASDIRECTED [facility] Stop: 06/02/20 04:59 Last Admin: 06/01/20 22:38 Dose: 100 mls/hr Documented by: Pantoprazole Sodium 40 mg/ (Sodium Chloride) 10 mls @ 300 mls/hr IV DAILY [facility] Last Admin: 06/02/20 09:10 Dose: 300 mls/hr Documented by: Piperacillin Sod/Tazobactam (Sod 4.5 gm/ Sodium Chloride) 100 mls @ 100 mls/hr IV ONETIME ONE Stop: 06/01/20 20:28 Last Admin: 06/01/20 20:16 Dose: 100 mls/hr Documented by: Piperacillin Sod/Tazobactam (Sod 3.375 gm/ Sodium Chloride) 50 mls @ 100 mls/hr IV Q8H [facility] Last Admin: 06/02/20 11:10 Dose: 100 mls/hr Documented by: Levetiracetam (Keppra) 750 mg PO ONETIME ONE Stop: 06/01/20 23:31 Last Admin: 06/01/20 23:35 Dose: 750 mg Documented by: Levetiracetam (Keppra) 750 mg PO Q12HR [facility] Last Admin: 06/02/20 09:52 Dose: 750 mg Documented by: Loratadine (Claritin) 10 mg PO DAILY [facility] Last Admin: 06/02/20 09:51 Dose: 10 mg Documented by: Methylprednisolone Sodium Succinate (Solu-Medrol) 40 mg IVPUSH ONETIME ONE Stop: 06/01/20 19:31 Last Admin: 06/01/20 20:16 Dose: 40 mg Documented by: Metoclopramide HCl (Reglan) 10 mg IVPUSH ONETIME ONE Stop: 06/01/20 15:03 Last Admin: 06/01/20 16:47 Dose: 10 mg Documented by: Morphine Sulfate (Morphine) 4 mg IVPUSH ONETIME ONE Stop: 06/01/20 15:03 Last Admin: 06/01/20 16:47 Dose: 4 mg Documented by: Morphine Sulfate (Morphine) 2 mg IVPUSH Q4H PRN PRN Reason: Pain (severe 7-10) Stop: 06/02/20 18:48 Non-Formulary Medication (Levetiracetam [Levetiracetam Er]) 750 mg PO Q12HR [facility] Last Admin: 06/01/20 23:17 Dose: Not Given Documented by: Ondansetron HCl (Zofran) 4 mg IVPUSH Q4H PRN PRN Reason: Nausea Sodium Chloride (Saline Flush) 10 ml FLUSH ASDIRECTED PRN PRN Reason: Keep Vein Open Last Admin: 06/01/20 16:47 Dose: 10 ml Documented by: Sodium Chloride (Saline Flush) 2.5 ml FLUSH ASDIRECTED PRN PRN Reason: Keep Vein Open Last Admin: 06/01/20 16:47 Dose: 2.5 ml Documented by: Venlafaxine HCl (Effexor Xr) 75 mg PO DAILY [facility] Last Admin: 06/02/20 09:52 Dose: 75 mg Documented by:
[2020-06-02] MEDS: Budesonide/Formoterol 160-4.5 MCG/Puff 6 GM Inhaler INH SCH (11:16)
== END 2020-06-02 12:00 | disposition home or self-care (01) ==
LOC: MW.ED 14:58 → MW.MS 18:49
PROVIDERS: ADMIT Student in an Organized Health Care Education/Training Program; ATTEND Student in an Organized Health Care Education/Training Program
DX: R11.2 Nausea with vomiting, unspecified (principal); C34.90 Malignant neoplasm of unspecified part of unspecified bronchus or lung; C79.31 Secondary malignant neoplasm of brain; J44.9 Chronic obstructive pulmonary disease, unspecified; F32.9 Major depressive disorder, single episode, unspecified; R56.9 Unspecified convulsions; F17.210 Nicotine dependence, cigarettes, uncomplicated; Z88.1 Allergy status to other antibiotic agents; Z88.5 Allergy status to narcotic agent; Z79.899 Other long term (current) drug therapy; Z98.890 Other specified postprocedural states
CPT/HCPCS: 36415; 70450; 80053; 83605; 83690; 83735; 84100; 85025; 87040; 96361; 96365; 96372; 96375; 96376; 99285; A9270; C9113; G0378; J1200; J1650; J2270; J2543; J2765; J2920; J3490; J7030; J7050; J7120; 96374; 99284

== ENCOUNTER 2020-11-10 19:57 | Emergency (ER) | payer OTHER, MEDICARE, MEDICAID ==
[2020-11-10] MEDS ORDERED: Sodium Chloride 0.9% 10 ML Syringe FLUSH PRN (20:03)
[2020-11-10] MEDS ORDERED: Sodium Chloride 0.9% 2.5 ML Syringe FLUSH PRN (20:03)
--- NOTE | 2020-11-10 20:06 | EDM.PDOC ---
ED HPI GENERAL MEDICAL PROBLEM - General Chief Complaint: Head Injury Stated Complaint: FALL Time Seen by Provider: 11/10/20 19:58 - History of Present Illness INITIAL COMMENTS - FREE TEXT/NARRATIVE: History of present illness: [] Patient with a past history of back surgery who is not on a blood thinner had a fall after he got out of his truck on the way home from work. He admits to [address] He fell on his left hip and has pain in the left hip. He has chronic neck and back pain but has no new pain except the left hip. It is worse with range of motion. Its severe when he tries to bear weight or his range of motion. He was unable to get up on his own because of the pain. Review of systems: As per history of present illness and below otherwise all systems reviewed and negative. Past medical history: As per history of present illness and as reviewed below otherwise noncontributory. Surgical history: As per history of present illness and as reviewed below otherwise noncontributory. Social history: No reported history of drug or alcohol abuse. Family history: As per history of present illness and as reviewed below otherwise noncontributory. Physical exam: Constitutional - well developed, well-nourished and in no acute distress HEENT - normocephalic, no evidence of trauma - external nose and mouth normal - no mass in neck and no JVD - mucosae moist EYES - full EOM, PERRL, no icterus - no evidence of inflammation, injection, or drainage Respiratory - no respiratory distress, equal bilateral expansion, lungs clear to auscultation and no abnormal lung sounds Cardiovascular - Regular Rhythm with S1 and S2 appreciated and no murmur, gallop or rub. GI - abdomen soft without distension or organomegaly - normal bowel sounds - no guard or rebound Musculoskeletal-patient is alert and has a capacity to understand questions and participate in the exam. He has normal range of motion without pain or tenderness in the neck. Tenderness and pain with range of motion left hip otherwise no gross deformity of long bones or joints - no tenderness, swelling or edema Neurologic - Alert and oriented times four -likely slurred speech-CN II-XII grossly intact - motor sensory and coordination symmetrically normal Psychiatric - appropriate mood and affect with normal thought content Hematologic - No petechiae or purpura - mucosa appropriate color and sclera not pale - normal nail bed color and refill Integument - no rash or evidence of trauma - normal turgor Diagnostics: [] Therapeutics: [] Impression: [] Plan: [] Definitive disposition and diagnosis as appropriate pending reevaluation and review of above. left hip Pain Score (Numeric/FACES): 8 - Related Data Allergies Allergy/AdvReac Type Severity Reaction Status Date / Time amoxicillin [Amoxicillin] Allergy Rash Verified 11/10/20 20:09 codeine Allergy Swelling Verified 11/10/20 20:09 Home Meds: Home Meds Venlafaxine [Effexor XR] 75 mg PO DAILY 05/08/19 [History] levETIRAcetam [Levetiracetam ER] 750 mg PO Q12HR 05/08/19 [History] Albuterol Sulfate [Proair Hfa] 2 puff INH ASDIRECTED PRN 06/01/20 [History] Ascorbate Calcium [Vitamin C] 500 mg PO BID 06/01/20 [History] Budesonide/Formoterol Fumarate [Symbicort 160-4.5 Mcg Inhaler] 2 puff INH BID 06/01/20 [History] Loratadine 10 mg PO DAILY 06/01/20 [History] Multivit-Min/FA/Lycopen/Lutein [Centravites 50 Plus Tablet] 1 each PO DAILY 06/01/20 [History] Ondansetron [Zofran Odt] 8 mg PO Q4H PRN #20 tab.rapdis 06/01/20 [Rx] Past Medical History HEENT History: Reports: Hard of Hearing Respiratory History: Reports: COPD Other Respiratory History: smokes 1-2 PPd for 35 years Gastrointestinal History: Reports: Colon Polyp Musculoskeletal History: Reports: Back Pain, Chronic, Fracture, Neck Pain, Chronic Other Musculoskeletal History: hx of fx left wrist, right clavicle, left ankle Neurological History: Reports: Headaches, Chronic, Head Trauma, Seizure Psychiatric History: Reports: Anxiety, Depression, Panic Attack Endocrine/Metabolic History: Reports: None Oncologic (Cancer) History: Reports: Brain, Lung - Infectious Disease History Infectious Disease History: Reports: None - Past Surgical History HEENT Surgical History: Reports: Other (See Below) Other HEENT Surgeries/Procedures: wisdom tooth extraction. rhinoplasty GI Surgical History: Reports: Appendectomy, Colonoscopy Male Surgical History: Reports: Vasectomy Neurological Surgical History: Reports: Laminectomy, Lumbar Spine Musculoskeletal Surgical History: Reports: Other (See Below) Other Musculoskeletal Surgeries/Procedures:: laminectomy, hx of ORIF left ankle- no hardware Social & Family History - Family History Family Medical History: No Pertinent Family History - Caffeine Use Caffeine Use: Reports: None ED ROS GENERAL - Review of Systems Review Of Systems: Comprehensive ROS is negative, except as noted in HPI. ED EXAM, HEAD INJURY - Physical Exam Exam: See Below Text/Narrative:: My physical exam is in the HPI #1 Interpretation EKG Interpretation Comments: KG was obtained at 2014 hrs. and interpreted by me. He is in a sinus rhythm. He has a tremor artifact that means I am going to interpret excluding the 1 and excluding lead I because of the artifact. Otherwise he has a supraventricular rhythm with a heart rate of 84 and a AL interval of 153. The axis is 92. There is a borderline right axis deviation. The QRS is essentially normal with a nightly aVL. The ST and T are essentially normal. These are compared to 06/01/2020 and as far as I can tell excluding the interpretation of lead I in V1 there is no acute change. Impression no obvious ischemia or injury Course - Vital Signs Text/Narrative:: 2047 hrs. the x-ray reveals a left femoral neck fracture with shortening and displacement. The patient last ate at 17:30 when he had also 5 drinks. Patient understands he will have to be transferred because we do not have an orthopedist address this issue. 2051 hrs. the patient is excepted by Dr. Herrera after presented case. He will be transported to their hospital at [facility]. Last Recorded V/S: Last Vital Signs Temp 36.1 C 11/10/20 21:09 Pulse 83 11/10/20 21:09 Resp 18 11/10/20 21:09 BP 127/80 11/10/20 21:09 Pulse Ox 93 L 11/10/20 21:09 - Orders/Labs/Meds Orders: Active Orders 24 hr Category Date Time Status EKG Documentation Completion [RC] AM Care 11/10/20 20:03 Active Cervical Spine 2V or 3V [CR] Stat Exams 11/10/20 20:12 Taken Cervical Spine wo Cont [CT] Stat Exams 11/10/20 20:38 Taken Chest 1V Frontal [CR] Stat Exams 11/10/20 21:07 Ordered Hip Min 2V or 3V w Pelvis Lt [CR] Stat Exams 11/10/20 20:03 Taken UA W/CHULA RFLX IF INDICATED [URIN] Stat Lab 11/10/20 20:04 Ordered Sodium Chloride 0.9% [Saline Flush] Med 11/10/20 20:03 Active 10 ml FLUSH ASDIRECTED PRN Sodium Chloride 0.9% [Saline Flush] Med 11/10/20 20:03 Active 2.5 ml FLUSH ASDIRECTED PRN Saline Lock Insert [OM.PC] Stat Oth 11/10/20 20:04 Ordered Medication Orders Sodium Chloride (Sodium Chloride 0.9% 10 Ml Syringe) 10 ml FLUSH ASDIRECTED PRN PRN Reason: Keep Vein Open Sodium Chloride (Sodium Chloride 0.9% 2.5 Ml Syringe) 2.5 ml FLUSH ASDIRECTED PRN PRN Reason: Keep Vein Open Labs: Laboratory Tests 11/10/20 11/10/20 11/10/20 Range/Units 20:17 20:17 20:17 WBC 10.29 (4.0-11.0) K/uL RBC 5.58 (4.50-5.90) M/uL Hgb 18.8 H (13.0-17.0) g/dL Hct 53.0 H (38.0-50.0) % MCV 95.0 (80.0-98.0) fL MCH 33.7 H (27.0-32.0) pg MCHC 35.5 (31.0-37.0) g/dL RDW Std Deviation 45.6 (28.0-62.0) fl RDW Coeff of Curry 13 (11.0-15.0) % Plt Count 242 (150-400) K/uL MPV 9.90 (7.40-12.00) fL Neut % (Auto) 75.8 (48.0-80.0) % Lymph % (Auto) 15.2 L (16.0-40.0) % [place] % (Auto) 7.2 (0.0-15.0) % Eos % (Auto) 1.4 (0.0-7.0) % Baso % (Auto) 0.4 (0.0-1.5) % Neut # (Auto) 7.8 H (1.4-5.7) K/uL Lymph # (Auto) 1.6 (0.6-2.4) K/uL [place] # (Auto) 0.7 (0.0-0.8) K/uL Eos # (Auto) 0.1 (0.0-0.7) K/uL Baso # (Auto) 0.0 (0.0-0.1) K/uL Nucleated RBC % 0.0 /100WBC Nucleated RBCs # 0 K/uL INR 1.07 APTT 23.4 (18.6-31.3) SEC Sodium 142 (136-148) mmol/L Potassium 3.6 (3.5-5.1) mmol/L Chloride 104 (98-107) mmol/L Carbon Dioxide 25.3 (21.0-32.0) mmol/L BUN 11 (7.0-18.0) mg/dL Creatinine 0.8 (0.8-1.3) mg/dL Est Cr Clr Drug Dosing TNP Estimated GFR (MDRD) > 60.0 ml/min Glucose 104 (74-106) mg/dL Calcium 8.6 (8.5-10.1) mg/dL Total Bilirubin 0.4 (0.2-1.0) mg/dL AST 26 (15-37) IU/L ALT 31 (14-63) IU/L Alkaline Phosphatase 90 (46-116) U/L Total Protein 6.8 (6.4-8.2) g/dL Albumin 3.7 (3.4-5.0) g/dL Globulin 3.1 (2.6-4.0) g/dL Albumin/Globulin Ratio 1.2 (0.9-1.6) Ethyl Alcohol 188 mg/dL Meds: Medications Generic Name Dose Route Start Last Admin Trade Name Freq PRN Reason Stop Dose Admin Sodium Chloride 10 ml 11/10/20 20:03 Sodium Chloride 0.9% 10 Ml Syringe FLUSH ASDIRECTED PRN Keep Vein Open Sodium Chloride 2.5 ml 11/10/20 20:03 Sodium Chloride 0.9% 2.5 Ml Syringe FLUSH ASDIRECTED PRN Keep Vein Open Discontinued Medications Generic Name Dose Route Start Last Admin Trade Name Freq PRN Reason Stop Dose Admin Fentanyl 25 mcg 11/10/20 20:13 11/10/20 20:23 Fentanyl 50 Mcg/Ml Sdv IVPUSH 11/10/20 20:14 25 mcg ONETIME ONE Administration Departure - Departure Time of Disposition: 21:33 Disposition: DC/Tfer to Acute Hospital 02 Condition: Good Clinical Impression: Left displaced femoral neck fracture, Fall from standing, Alcohol intoxication - Discharge Information Forms: ED Department Discharge Sepsis Event Note (ED) - Focused Exam Vital Signs: Vital Signs Temp Pulse Resp BP Pulse Ox 11/10/20 21:09 36.1 C 83 18 127/80 93 L 11/10/20 20:26 85 18 134/84 94 L 11/10/20 20:00 36.1 C 94 18 160/68 H 95 - My Orders Last 24 Hours: My Active Orders 11/10/20 20:03 EKG Documentation Completion [RC] AM Hip Min 2V or 3V w Pelvis Lt [CR] Stat Sodium Chloride 0.9% [Saline Flush] 10 ml FLUSH ASDIRECTED PRN Sodium Chloride 0.9% [Saline Flush] 2.5 ml FLUSH ASDIRECTED PRN 11/10/20 20:04 UA W/CHULA RFLX IF INDICATED [URIN] Stat Saline Lock Insert [OM.PC] Stat 11/10/20 20:12 Cervical Spine 2V or 3V [CR] Stat 11/10/20 20:38 Cervical Spine wo Cont [CT] Stat 11/10/20 21:07 Chest 1V Frontal [CR] Stat - Assessment/Plan Last 24 Hours: My Active Orders 11/10/20 20:03 EKG Documentation Completion [RC] AM Hip Min 2V or 3V w Pelvis Lt [CR] Stat Sodium Chloride 0.9% [Saline Flush] 10 ml FLUSH ASDIRECTED PRN Sodium Chloride 0.9% [Saline Flush] 2.5 ml FLUSH ASDIRECTED PRN 11/10/20 20:04 UA W/CHULA RFLX IF INDICATED [URIN] Stat Saline Lock Insert [OM.PC] Stat 11/10/20 20:12 Cervical Spine 2V or 3V [CR] Stat 11/10/20 20:38 Cervical Spine wo Cont [CT] Stat 11/10/20 21:07 Chest 1V Frontal [CR] Stat
[2020-11-10] MEDS ORDERED: fentaNYL 50 MCG/ML SDV IVPUSH ONE (20:13)
[2020-11-10 20:50] LABS: BLOOD UREA NITROGEN,BUN 11 mg/dL (7.0-18.0); CARBON DIOXIDE,CO2 25.3 mmol/L (21.0-32.0); CHLORIDE,CL 104 mmol/L (98-107); GLUCOSE RANDOM 104 mg/dL (74-106); POTASSIUM,K 3.6 mmol/L (3.5-5.1); SODIUM,NA 142 mmol/L (136-148)
[2020-11-10 21:09] VITALS: BP 127/80; PULSE 83
--- NOTE | 2020-11-10 21:39 | CR ---
Indication: Fall Technique: Frontal view of the pelvis and 2 views of the left hip for hip. Comparison: Pelvis radiograph 03/02/2019 Findings: There is an acute displaced fracture of the left femoral neck. The hip joints are normally located. The pelvic ring and visualized proximal right femur appear intact. Impression : Acute displaced left femoral neck fracture. Dictated by Aurelio Gillette MD @ 11/10/2020 9:38:[address] Aurelio Gillette @ Nov 10 2020 9:38PM
--- NOTE | 2020-11-10 21:41 | CR ---
Indication: Fall Technique: Two views of the cervical spine Comparison: None Findings/Impression: Markedly suboptimal lateral view, with the mid to lower cervical spine obscured by the shoulders. No acute abnormality demonstrated at C1 through C3. AP view is unremarkable. Dictated by Aurelio Gillette MD @ 11/10/2020 9:40:48 PM (Electronically Signed)
--- NOTE | 2020-11-10 21:56 | CT ---
INDICATION: Neck injury, unable to adequately see the cervical spine on plain film. TECHNIQUE: CT cervical spine without contrast. COMPARISON: Cervical spine x-ray 11/10/2020 FINDINGS: Vertebrae: Alignment is normal. There are no fractures or suspicious bony lesions. Discs and facet joints: Facet hypertrophy C2-3 without significant stenosis. Facet hypertrophy C3-4 without significant stenosis. Facet hypertrophy C4-5 without significant stenosis. Facet hypertrophy and posterior osteophytes C5-6 with mild left foraminal stenosis. Facet hypertrophy with posterior osteophytes at C6-7 with moderate left foraminal stenosis. Facet hypertrophy C7-T1 without significant stenosis. Extraspinal findings: Small left mastoid fluid. IMPRESSION: Degenerative changes cervical spine as detailed above without evidence of cervical spine fracture. Please note that all CT scans at this facility use dose modulation, iterative reconstruction, and/or weight-based dosing when appropriate to reduce radiation dose to as low as reasonably achievable. Dictated by Seth Galeana MD @ 11/10/2020 9:54:[address] Seth Galeana @ Nov 10 2020 9:54PM
--- NOTE | 2020-11-10 22:13 | CR ---
INDICATION: Chest injury from fall injuring left side TECHNIQUE: Chest radiograph 1 view COMPARISON: None FINDINGS: Mediastinum: The mediastinum is normal in appearance. The heart silhouette is normal in size and morphology. Lung: Both lungs are unremarkable in appearance. No sign of pleural effusion seen. No pneumothorax is identified. Bone and Soft tissue: Unremarkable for age. The inferior lateral left chest wall is partially excluded. IMPRESSION: 1. No acute cardiopulmonary disease is seen. Dictated by: Angel Rodrigues MD @ 11/10/2020 22:12:14 (Electronically Signed)
== END 2020-11-10 21:46 ==
LOC: MW.ED 19:57
DX: S72.002A Fracture of unspecified part of neck of left femur, initial encounter for closed fracture (principal); F10.129 Alcohol abuse with intoxication, unspecified; J44.9 Chronic obstructive pulmonary disease, unspecified; R56.9 Unspecified convulsions; Z79.899 Other long term (current) drug therapy; Z88.5 Allergy status to narcotic agent; Z88.0 Allergy status to penicillin; W18.30XA Fall on same level, unspecified, initial encounter; Y90.6 Blood alcohol level of 120-199 mg/100 ml
CPT/HCPCS: 36415; 71045; 72040; 72125; 73502; 80053; 80307; 85025; 85610; 85730; 93005; 96374; 99285; J3010

== ENCOUNTER 2022-02-19 18:07 | Emergency (ER) | payer MEDICARE, MEDICAID, OTHER | END 2022-02-19 19:09 | disposition left against medical advice (07) | LOC: MW.ED 18:07 | DX: Z53.21 Procedure and treatment not carried out due to patient leaving prior to being seen by health care provider (principal) ==

== ENCOUNTER 2022-02-19 19:56 | Emergency (ER) | payer MEDICARE, MEDICAID, OTHER ==
[2022-02-19] MEDS ORDERED: Sodium Chloride 0.9% 1,000 ML IV ONE (20:28)
[2022-02-19] MEDS ORDERED: Ondansetron 4 MG/2 ML SDV IVPUSH ONE (20:28)
[2022-02-19] MEDS ORDERED: Ketorolac 30 MG/ML SDV IVPUSH ONE (20:36)
[2022-02-19 21:21] LABS: CORONAVIRUS COVID-19 NAA NEGATIVE (NEGATIVE); INFLUENZA A NAA NEGATIVE (NEGATIVE); INFLUENZA B NAA NEGATIVE (NEGATIVE)
[2022-02-19 22:04] LABS: CARBON DIOXIDE,CO2 30.1 mmol/L (21.0-32.0); POTASSIUM,K 3.9 mmol/L (3.5-5.1)
[2022-02-20 00:06] VITALS: BP 138/85; PULSE 56
== END 2022-02-20 00:06 | disposition home or self-care (01) ==
LOC: MW.ED 19:56
DX: A08.4 Viral intestinal infection, unspecified (principal); J44.9 Chronic obstructive pulmonary disease, unspecified; Z88.0 Allergy status to penicillin; Z88.5 Allergy status to narcotic agent; Z79.899 Other long term (current) drug therapy; Z20.822 Contact with and (suspected) exposure to COVID-19; Z90.49 Acquired absence of other specified parts of digestive tract
CPT/HCPCS: 0240U; 36415; 74176; 80053; 83690; 85025; 96361; 96374; 96375; 99284; J1885; J2405; J7030

== ENCOUNTER → 2022-02-19 | Emergency (ER) | payer MEDICARE, MEDICAID, OTHER | LOC: MW.ED 14:30 | DX: Z53.21 Procedure and treatment not carried out due to patient leaving prior to being seen by health care provider (principal) ==

== ENCOUNTER 2022-02-22 13:44 | Emergency (ER) | payer MEDICARE, MEDICAID, OTHER ==
[2022-02-22] MEDS ORDERED: Sodium Chloride 0.9% 1,000 ML IV ONE (14:22)
[2022-02-22 14:32] LABS: BLOOD UREA NITROGEN,BUN 22 mg/dL (7.0-18.0); CARBON DIOXIDE,CO2 27.1 mmol/L (21.0-32.0); CHLORIDE,CL 99 mmol/L (98-107); GLUCOSE RANDOM 125 mg/dL (74-106); LIPASE 58 U/L (73-393); POTASSIUM,K 3.4 mmol/L (3.5-5.1); SODIUM,NA 137 mmol/L (136-148)
[2022-02-22 14:34] LABS: ESTIMATED GFR 100 mL/min (>60)
[2022-02-22 16:50] VITALS: BP 136/86; PULSE 81
== END 2022-02-22 16:50 | disposition home or self-care (01) ==
LOC: MW.ED 13:44
DX: K29.80 Duodenitis without bleeding (principal); J44.9 Chronic obstructive pulmonary disease, unspecified; F41.9 Anxiety disorder, unspecified; F32.A Depression, unspecified; Z88.5 Allergy status to narcotic agent; Z88.1 Allergy status to other antibiotic agents
CPT/HCPCS: 36415; 71045; 74177; 80053; 81003; 83690; 84484; 85025; 93005; 96360; 96361; 99284; J7030

== ENCOUNTER 2022-02-22 19:03 | Observation (INO) | payer MEDICARE, MEDICAID, OTHER ==
[2022-02-22] MEDS ORDERED: Sucralfate Suspension 1 GM/10 ML Cup PO ONE (19:53)
[2022-02-22] MEDS ORDERED: Sodium Chloride 0.9% 1,000 ML IV ONE (19:53)
[2022-02-22] MEDS ORDERED: Pantoprazole 40 MG in Sodium Chloride 0.9% 10 ML IVPUSH ONE (19:53)
[2022-02-22] MEDS ORDERED: Morphine 2 MG/ML SYRINGE IVPUSH PRN (23:03)
[2022-02-22] MEDS ORDERED: Ondansetron 4 MG/2 ML SDV IVPUSH PRN (23:03)
[2022-02-22] MEDS ORDERED: Albuterol/Ipratropium 3.0-0.5 MG/3 ML Neb Soln NEB PRN (23:03)
[2022-02-22] MEDS ORDERED: ALPRAZOLAM 1 MG PO PRN (23:06)
[2022-02-22] MEDS ORDERED: Lactated Ringers 1,000 ML IV SCH (23:15)
[2022-02-23] MEDS: buPROPion 150 MG Tab.ER PO SCH ×2 (01:19→09:27)
[2022-02-23] MEDS ORDERED: QUEtiapine 100 MG Tab PO SCH ×2 (01:30→09:00)
[2022-02-23] MEDS: Sucralfate Suspension 1 GM/10 ML Cup PO SCH ×2 (06:34→11:15)
[2022-02-23] MEDS ORDERED: Pantoprazole 40 MG in Sodium Chloride 0.9% 10 ML IVPUSH SCH (09:00)
[2022-02-23] MEDS: Potassium Chloride 100 ML IV SCH ×2 (10:19→14:06)
[2022-02-23] MEDS ORDERED: Potassium Chloride 20 MEQ Tab.ER PO ONE (14:12)
[2022-02-23 16:18] VITALS: BP 125/93; PULSE 70
== END 2022-02-23 16:45 | disposition home or self-care (01) ==
LOC: MW.ED 19:03 → MW.MS 19:52
PROVIDERS: ADMIT Student in an Organized Health Care Education/Training Program; ATTEND Student in an Organized Health Care Education/Training Program
DX: K29.00 Acute gastritis without bleeding (principal); K29.80 Duodenitis without bleeding; J44.9 Chronic obstructive pulmonary disease, unspecified; F41.9 Anxiety disorder, unspecified; F17.210 Nicotine dependence, cigarettes, uncomplicated; F32.A Depression, unspecified; Z88.5 Allergy status to narcotic agent; Z88.1 Allergy status to other antibiotic agents; Z79.899 Other long term (current) drug therapy; Z98.890 Other specified postprocedural states; Z85.118 Personal history of other malignant neoplasm of bronchus and lung
CPT/HCPCS: 36415; 80053; 83735; 84100; 85025; 87338; 96361; 96374; 99285; A9270; C9113; J3480; J3490; J7030; J7120; 71045; 71045-26; 74177; 74177-26; 81003; 83690; 84484; 87045; 87046; 87328; 87329; 87449; 87899; 93005; 96360; 99284; 99284-25

== ENCOUNTER 2022-03-06 09:34 | Day surgery (SDC) | payer MEDICAID, MEDICARE, OTHER ==
[~2022-03-06 09:34] MED LIST changes: -Lidocaine 2% 5 ML SDV ONE; +Midazolam 1 MG/ML 2 ML SDV ONE; -fentaNYL 100 MCG/2 ML SDV ONE
[2022-03-06] MEDS ORDERED: fentaNYL 100 MCG/2 ML SDV ONE (10:53)
[2022-03-06] MEDS ORDERED: Lidocaine 2% 5 ML SDV ONE (10:53)
[2022-03-06] MEDS ORDERED: Lactated Ringers 1,000 ML IV SCH (11:45)
[2022-03-06 12:09] VITALS: BP 127/83
[2022-03-06 12:18] VITALS: PULSE 74
== END 2022-03-06 12:40 | disposition home or self-care (01) ==
LOC: MW.SDS 09:34
PROVIDERS: ATTEND Surgery
DX: K21.00 Gastro-esophageal reflux disease with esophagitis, without bleeding (principal); K29.80 Duodenitis without bleeding; K29.00 Acute gastritis without bleeding; K44.9 Diaphragmatic hernia without obstruction or gangrene; F41.9 Anxiety disorder, unspecified; F32.A Depression, unspecified; F17.210 Nicotine dependence, cigarettes, uncomplicated; J44.9 Chronic obstructive pulmonary disease, unspecified; Z88.2 Allergy status to sulfonamides; Z88.0 Allergy status to penicillin; Z88.5 Allergy status to narcotic agent; Z79.899 Other long term (current) drug therapy; Z79.1 Long term (current) use of non-steroidal anti-inflammatories (NSAID); Z79.891 Long term (current) use of opiate analgesic; Z90.49 Acquired absence of other specified parts of digestive tract; Z98.890 Other specified postprocedural states; Z96.649 Presence of unspecified artificial hip joint; Z85.118 Personal history of other malignant neoplasm of bronchus and lung
CPT/HCPCS: 43239; J2704; J3010; J7120; 00731; 88305; J2250

== ENCOUNTER 2022-09-06 10:36 | Emergency (ER) | payer OTHER, MEDICARE, MEDICAID ==
[2022-09-06] MEDS ORDERED: Ondansetron 4 MG/2 ML SDV IVPUSH ONE (10:57)
[2022-09-06] MEDS ORDERED: Morphine 4 MG/ML Syringe IVPUSH ONE (10:57)
[2022-09-06] MEDS ORDERED: Sodium Chloride 0.9% 1,000 ML IV ONE (10:57)
[2022-09-06 12:22] LABS: BLOOD UREA NITROGEN,BUN 11 mg/dL (7.0-18.0); CARBON DIOXIDE,CO2 28.1 mmol/L (21.0-32.0); CHLORIDE,CL 103 mmol/L (98-107); GLUCOSE RANDOM 104 mg/dL (74-106); POTASSIUM,K 4.5 mmol/L (3.5-5.1); SODIUM,NA 139 mmol/L (136-148)
[2022-09-06 12:30] LABS: ESTIMATED GFR 99 mL/min (>60)
[2022-09-06 12:50] VITALS: BP 132/73; PULSE 74
== END 2022-09-06 12:59 | disposition home or self-care (01) ==
LOC: MW.ED 10:36
DX: R51.9 Headache, unspecified (principal); J44.9 Chronic obstructive pulmonary disease, unspecified; F17.210 Nicotine dependence, cigarettes, uncomplicated; Z88.0 Allergy status to penicillin; Z88.5 Allergy status to narcotic agent; Z79.899 Other long term (current) drug therapy
CPT/HCPCS: 36415; 70450; 80053; 83735; 85025; 86140; 96361; 96374; 96375; 99284; J2270; J2405; J7030

== ENCOUNTER 2022-10-14 18:27 | Emergency (ER) | payer OTHER, MEDICARE, MEDICAID ==
[2022-10-14] MEDS ORDERED: Acetaminophen/oxyCODONE 325-5 MG Tab PO ONE ×2 (19:13→19:49)
[2022-10-14 22:04] VITALS: BP 129/81; PULSE 68
== END 2022-10-14 22:03 | disposition home or self-care (01) ==
LOC: MW.ED 18:27
DX: S80.12XA Contusion of left lower leg, initial encounter (principal); M79.89 Other specified soft tissue disorders; J44.9 Chronic obstructive pulmonary disease, unspecified; F17.210 Nicotine dependence, cigarettes, uncomplicated; Z88.0 Allergy status to penicillin; Z88.5 Allergy status to narcotic agent; Z88.8 Allergy status to other drugs, medicaments and biological substances; Z79.899 Other long term (current) drug therapy
CPT/HCPCS: 73630; 93971; 99284; A9270; 99283

== ENCOUNTER 2024-07-08 13:50 | Observation (INO) | payer OTHER, MEDICARE ==
[2024-07-08 14:39] LABS: HEMATOCRIT 50.6 % (42.0-52.0); HEMOGLOBIN 18.1 g/dL (14.0-18.0); MEAN CORPUSCULAR HEMOGLOBIN 32.6 pg (28.0-32.0); MEAN CORPUSCULAR HGB CONC 35.8 g/dL (32.0-36.0); MEAN CORPUSCULAR VOLUME 91.2 fL (83.0-99.0); MEAN PLATELET VOLUME 9.2 fL (9.4-12.4); PLATELET COUNT,PLT 285 K/uL (150-400); RED BLOOD CELL COUNT 5.55 M/uL (4.52-5.90); WHITE BLOOD CELL COUNT,WBC 7.17 K/uL (3.9-11.3)
[2024-07-08 15:20] LABS: A/G RATIO 1.2 (0.9-1.6); ALANINE AMINOTRANSFERASE,ALT 38 IU/L (14-63); ALKALINE PHOSPHATASE 102 U/L (46-116); ASPARTATE AMNIOTRANSFERASE,AST 27 IU/L (15-37); BILIRUBIN TOTAL 0.6 mg/dL (0.2-1.0); BLOOD UREA NITROGEN,BUN 12 mg/dL (7.0-18.0); CALCIUM 9.6 mg/dL (8.5-10.1); CARBON DIOXIDE,CO2 28.6 mmol/L (21.0-32.0); CHLORIDE,CL 103 mmol/L (98-107); CREATININE 0.8 mg/dL (0.8-1.3); EST CRCL DRUG DOSING (CG) 82.22 mL/min; GLUCOSE RANDOM 115 mg/dL (74-106); POTASSIUM,K 3.9 mmol/L (3.5-5.1); PROTEIN TOTAL,TP 7.3 g/dL (6.4-8.2); SODIUM,NA 140 mmol/L (136-148)
[2024-07-08 15:26] LABS: ESTIMATED GFR 101 mL/min (>60)
[2024-07-08 19:33] LABS: TSH ULTRASENSITIVE 1.06 uIU/mL (0.36-3.74)
[2024-07-08] MEDS: Enoxaparin 40 MG/0.4 ML Syringe SUBCUT SCH (21:37)
[2024-07-09 05:47] LABS: BASOPHILS PERCENT AUTO 1.3 % (0.0-1.0); EOSINOPHILS ABSOLUTE AUTO 0.26 K/uL (0.00-0.45); EOSINOPHILS PERCENT AUTO 3.3 % (0.0-6.0); HEMATOCRIT 52.7 % (42.0-52.0); HEMOGLOBIN 18.1 g/dL (14.0-18.0); IMMATURE GRAN ABSOLUTE AUTO 0.03 K/uL (0.00-0.05); IMMATURE GRAN PERCENT AUTO 0.4 % (0.0-0.4); LYMPHOCYTES PERCENT AUTO 28.3 % (24.0-44.0); MEAN CORPUSCULAR HEMOGLOBIN 31.9 pg (28.0-32.0); MEAN CORPUSCULAR HGB CONC 34.3 g/dL (32.0-36.0); MEAN CORPUSCULAR VOLUME 92.9 fL (83.0-99.0); MEAN PLATELET VOLUME 9.5 fL (9.4-12.4); MONOCYTES ABSOLUTE AUTO 0.99 K/uL (0.00-0.80); MONOCYTES PERCENT AUTO 12.7 % (0.0-8.0); PLATELET COUNT,PLT 293 K/uL (150-400); RED BLOOD CELL COUNT 5.67 M/uL (4.52-5.90); WHITE BLOOD CELL COUNT,WBC 7.78 K/uL (3.9-11.3)
[2024-07-09 06:22] LABS: A/G RATIO 1.3 (0.9-1.6); ALBUMIN 3.8 g/dL (3.4-5.0); BILIRUBIN TOTAL 0.7 mg/dL (0.2-1.0); CALCIUM 9.5 mg/dL (8.5-10.1); CARBON DIOXIDE,CO2 27.9 mmol/L (21.0-32.0); CREATININE 0.8 mg/dL (0.8-1.3); EST CRCL DRUG DOSING (CG) 82.22 mL/min; POTASSIUM,K 4.3 mmol/L (3.5-5.1); PROTEIN TOTAL,TP 6.8 g/dL (6.4-8.2)
[2024-07-09 08:31] LABS: HEMOGLOBIN A1C 5.5 %
[2024-07-09] MEDS: Pantoprazole 40 MG Tab.CR PO SCH (09:13)
[2024-07-09] MEDS: Venlafaxine 75 MG Cap.ER PO SCH (09:13)
[2024-07-09] MEDS: Aspirin 81 MG Tab.Chew PO SCH (09:13)
[2024-07-09] MEDS: Gadobenate Dimeglumine 529 MG/ML 20 ML SDV IVPUSH ONE (13:01)
[2024-07-09 17:17] VITALS: BP 148/89; PULSE 70
[2024-07-09] MEDS ORDERED: Rosuvastatin 10 MG Tab PO SCH (21:00)
== END 2024-07-09 16:55 | disposition home or self-care (01) ==
LOC: MW.ED 13:50 → MW.MS 15:45
PROVIDERS: ADMIT Internal Medicine; ATTEND Internal Medicine
DX: G45.9 Transient cerebral ischemic attack, unspecified (principal); H53.8 Other visual disturbances; E78.5 Hyperlipidemia, unspecified; C34.90 Malignant neoplasm of unspecified part of unspecified bronchus or lung; F17.210 Nicotine dependence, cigarettes, uncomplicated; Z88.1 Allergy status to other antibiotic agents; Z88.5 Allergy status to narcotic agent; Z88.8 Allergy status to other drugs, medicaments and biological substances; Z79.82 Long term (current) use of aspirin; Z79.899 Other long term (current) drug therapy; Z20.822 Contact with and (suspected) exposure to COVID-19
CPT/HCPCS: 36415; 70450; 70544; 70549; 70553; 71046; 80053; 80061; 82607; 83036; 83735; 84443; 84484; 85025; 85027; 87428; 93005; 93306; 96372; 99285; A9270; A9577; G0378; J1650; 93010; 99284

== ENCOUNTER 2024-11-10 10:43 | Emergency (ER) | payer OTHER ==
[2024-11-10] MEDS: Bacitracin Oint 1 GM U/D Packet TOP ONE (11:08)
[2024-11-10 11:16] VITALS: BP 142/88
[2024-11-10 11:24] VITALS: PULSE 78
[2024-11-10] MEDS: Ketorolac 30 MG/ML SDV IM PRN (11:24)
[2024-11-10] MEDS: Dexamethasone 4 MG Tab PO ONE (11:57)
== END 2024-11-10 12:00 | disposition home or self-care (01) ==
LOC: MW.ED 10:43
DX: S46.911A Strain of unspecified muscle, fascia and tendon at shoulder and upper arm level, right arm, initial encounter (principal); S50.11XA Contusion of right forearm, initial encounter; S50.811A Abrasion of right forearm, initial encounter; M19.011 Primary osteoarthritis, right shoulder; Z87.81 Personal history of (healed) traumatic fracture; Z88.0 Allergy status to penicillin; Z88.8 Allergy status to other drugs, medicaments and biological substances; Z79.82 Long term (current) use of aspirin; Z79.899 Other long term (current) drug therapy; W01.0XXA Fall on same level from slipping, tripping and stumbling without subsequent striking against object, initial encounter
CPT/HCPCS: 73030; 96372; 99283; J1885; J8540

== ENCOUNTER 2024-12-30 11:02 | Emergency (ER) | payer OTHER ==
[2024-12-30] MEDS: Sodium Chloride 0.9% 1,000 ML IV ONE (11:49)
[2024-12-30] MEDS: Meclizine 25 MG Tab PO ONE (11:49)
[2024-12-30 11:59] LABS: BASOPHILS ABSOLUTE AUTO 0.08 K/uL (0.00-0.20); BASOPHILS PERCENT AUTO 0.8 % (0.0-1.0); EOSINOPHILS ABSOLUTE AUTO 0.21 K/uL (0.00-0.45); EOSINOPHILS PERCENT AUTO 2.2 % (0.0-6.0); HEMATOCRIT 52.1 % (42.0-52.0); HEMOGLOBIN 18.2 g/dL (14.0-18.0); IMMATURE GRAN ABSOLUTE AUTO 0.02 K/uL (0.00-0.05); IMMATURE GRAN PERCENT AUTO 0.2 % (0.0-0.4); LYMPHOCYTES ABSOLUTE AUTO 1.26 K/uL (1.00-4.80); LYMPHOCYTES PERCENT AUTO 12.9 % (24.0-44.0); MEAN CORPUSCULAR HEMOGLOBIN 31.9 pg (28.0-32.0); MEAN CORPUSCULAR HGB CONC 34.9 g/dL (32.0-36.0); MEAN CORPUSCULAR VOLUME 91.4 fL (83.0-99.0); MEAN PLATELET VOLUME 9.2 fL (9.4-12.4); MONOCYTES ABSOLUTE AUTO 0.95 K/uL (0.00-0.80); MONOCYTES PERCENT AUTO 9.7 % (0.0-8.0); NEUTROPHILS ABSOLUTE AUTO 7.24 K/uL (1.80-7.70); NEUTROPHILS PERCENT AUTO 74.2 % (41.0-71.0); PLATELET COUNT,PLT 231 K/uL (150-400); WHITE BLOOD CELL COUNT,WBC 9.76 K/uL (3.9-11.3)
[2024-12-30 12:26] LABS: A/G RATIO 1.3 (0.9-1.6); ALBUMIN 3.9 g/dL (3.4-5.0); BILIRUBIN TOTAL 0.7 mg/dL (0.2-1.0); CALCIUM 9.2 mg/dL (8.5-10.1); CARBON DIOXIDE,CO2 30.9 mmol/L (21.0-32.0); CREATININE 0.8 mg/dL (0.8-1.3); EST CRCL DRUG DOSING (CG) 82.22 mL/min; POTASSIUM,K 4.3 mmol/L (3.5-5.1); PROTEIN TOTAL,TP 6.9 g/dL (6.4-8.2)
[2024-12-30] MEDS: Iopamidol 755 MG/ML 500 ML Multipack Bottle IVPUSH STA (13:47)
[2024-12-30 14:50] VITALS: BP 147/89; PULSE 68
== END 2024-12-30 14:50 | disposition home or self-care (01) ==
LOC: MW.ED 11:02
DX: R42 Dizziness and giddiness (principal); Z75.3 Unavailability and inaccessibility of health-care facilities; J44.9 Chronic obstructive pulmonary disease, unspecified; Z79.899 Other long term (current) drug therapy; Z79.82 Long term (current) use of aspirin; Z88.0 Allergy status to penicillin; Z88.5 Allergy status to narcotic agent; Z88.8 Allergy status to other drugs, medicaments and biological substances
CPT/HCPCS: 36415; 70450; 70496; 70498; 80053; 85025; 96360; 99284; A9270; J7030; Q9967; 99283

== ENCOUNTER 2025-01-09 13:47 | Emergency (ER) | payer OTHER | END 2025-01-09 14:11 | disposition left against medical advice (07) | LOC: MW.ED 13:47 | DX: Z53.21 Procedure and treatment not carried out due to patient leaving prior to being seen by health care provider (principal) ==

== ENCOUNTER 2025-01-31 16:03 | Emergency (ER) | payer OTHER ==
[2025-01-31] MEDS: Ondansetron 4 MG/2 ML SDV IVPUSH ONE (16:36)
[2025-01-31] MEDS: Ketorolac 30 MG/ML SDV IVPUSH ONE (16:36)
[2025-01-31 16:45] LABS: BASOPHILS ABSOLUTE AUTO 0.04 K/uL (0.00-0.20); BASOPHILS PERCENT AUTO 0.3 % (0.0-1.0); EOSINOPHILS ABSOLUTE AUTO 0.03 K/uL (0.00-0.45); EOSINOPHILS PERCENT AUTO 0.2 % (0.0-6.0); IMMATURE GRAN ABSOLUTE AUTO 0.02 K/uL (0.00-0.05); IMMATURE GRAN PERCENT AUTO 0.2 % (0.0-0.4); LYMPHOCYTES ABSOLUTE AUTO 1.40 K/uL (1.00-4.80); LYMPHOCYTES PERCENT AUTO 11.5 % (24.0-44.0); MEAN PLATELET VOLUME 9.2 fL (9.4-12.4); MONOCYTES ABSOLUTE AUTO 1.26 K/uL (0.00-0.80); MONOCYTES PERCENT AUTO 10.4 % (0.0-8.0); NEUTROPHILS ABSOLUTE AUTO 9.39 K/uL (1.80-7.70); NEUTROPHILS PERCENT AUTO 77.4 % (41.0-71.0); NRBC ABSOLUTE 0.00 K/uL (0.00-0.02); NRBC PERCENT 0.0 /100WBC (0.0-0.2); PLATELET COUNT,PLT 250 K/uL (150-400); RED BLOOD CELL COUNT 5.95 M/uL (4.52-5.90); WHITE BLOOD CELL COUNT,WBC 12.14 K/uL (3.9-11.3)
[2025-01-31 17:06] LABS: A/G RATIO 1.2 (0.9-1.6); ALANINE AMINOTRANSFERASE,ALT 38.0 IU/L (14-63); ASPARTATE AMNIOTRANSFERASE,AST 28.0 IU/L (15-37); BILIRUBIN TOTAL 1.2 mg/dL (0.2-1.0); BLOOD UREA NITROGEN,BUN 18.0 mg/dL (7.0-18.0); CHLORIDE,CL 97.0 mmol/L (98-107); CREATININE 1.0 mg/dL (0.8-1.3); EST CRCL DRUG DOSING (CG) 65.78 mL/min; GLUCOSE RANDOM 130.0 mg/dL (74-106); POTASSIUM,K 3.9 mmol/L (3.5-5.1); PROTEIN TOTAL,TP 7.6 g/dL (6.4-8.2); SODIUM,NA 139.0 mmol/L (136-148)
[2025-01-31 17:08] LABS: ESTIMATED GFR 86.0 mL/min (>60)
[2025-01-31 17:13] LABS: CARBON DIOXIDE,CO2 29.1 mmol/L (21.0-32.0)
[2025-01-31] MEDS: Iopamidol 755 MG/ML 500 ML Multipack Bottle IVPUSH STA (18:03)
[2025-01-31] MEDS: Alum Hydrox/Mag Hydrox/Simeth 15 ML, Lidocaine 2% 5 ML PO ONE (18:45)
[2025-01-31 19:14] VITALS: BP 143/81; PULSE 74
== END 2025-01-31 19:18 | disposition home or self-care (01) ==
LOC: MW.ED 16:03
DX: K57.32 Diverticulitis of large intestine without perforation or abscess without bleeding (principal); K52.9 Noninfective gastroenteritis and colitis, unspecified; J44.9 Chronic obstructive pulmonary disease, unspecified; Z75.3 Unavailability and inaccessibility of health-care facilities; Z88.1 Allergy status to other antibiotic agents; Z88.8 Allergy status to other drugs, medicaments and biological substances; Z88.5 Allergy status to narcotic agent; Z79.82 Long term (current) use of aspirin; Z79.899 Other long term (current) drug therapy
CPT/HCPCS: 36415; 74177; 80053; 83690; 85025; 96361; 96374; 96375; 99284; A9270; J1885; J2405; J7030; Q9967; 99283

== ENCOUNTER 2025-02-01 12:20 | Inpatient (IN) | payer OTHER ==
[2025-02-01 12:50] LABS: MEAN PLATELET VOLUME 9.2 fL (9.4-12.4); NRBC ABSOLUTE 0.00 K/uL (0.00-0.02); NRBC PERCENT 0.0 /100WBC (0.0-0.2); PLATELET COUNT,PLT 244 K/uL (150-400); RED BLOOD CELL COUNT 5.78 M/uL (4.52-5.90); WHITE BLOOD CELL COUNT,WBC 16.05 K/uL (3.9-11.3)
[2025-02-01] MEDS: Ondansetron 4 MG/2 ML SDV IVPUSH ONE (12:54)
[2025-02-01 13:14] LABS: A/G RATIO 1.1 (0.9-1.6); ALANINE AMINOTRANSFERASE,ALT 34.0 IU/L (14-63); ASPARTATE AMNIOTRANSFERASE,AST 28.0 IU/L (15-37); BILIRUBIN TOTAL 0.6 mg/dL (0.2-1.0); BLOOD UREA NITROGEN,BUN 24.0 mg/dL (7.0-18.0); CARBON DIOXIDE,CO2 33.0 mmol/L (21.0-32.0); CHLORIDE,CL 98.0 mmol/L (98-107); CREATININE 0.9 mg/dL (0.8-1.3); EST CRCL DRUG DOSING (CG) 73.09 mL/min; GLUCOSE RANDOM 140.0 mg/dL (74-106); POTASSIUM,K 4.2 mmol/L (3.5-5.1); PROTEIN TOTAL,TP 7.0 g/dL (6.4-8.2); SODIUM,NA 139.0 mmol/L (136-148)
[2025-02-01 13:17] LABS: ESTIMATED GFR 98.0 mL/min (>60)
[2025-02-01 13:29] LABS: BASOPHILS ABSOLUTE MAN 0.16 K/uL (0.00-0.20); BASOPHILS PERCENT MAN 1 % (0-1); EOSINOPHILS ABSOLUTE MAN 0.32 K/uL (0.00-0.45); EOSINOPHILS PERCENT MAN 2 % (0-6); LYMPHOCYTES ABSOLUTE MAN 1.28 K/uL (1.00-4.80); LYMPHOCYTES PERCENT MAN 8 % (24-44); MONOCYTES ABSOLUTE MAN 1.61 K/uL (0.00-0.80); MONOCYTES PERCENT MAN 10 % (0-8); SEG NEUTROPHILS ABSOLUTE MAN 12.68 K/uL (1.80-7.70); SEG NEUTROPHILS PERCENT MAN 79 % (41-71)
[2025-02-01] MEDS: Ondansetron 4 MG Tab.DIS PO ONE (13:44)
[2025-02-01] MEDS: Ciprofloxacin in D5W 400 MG in Premix Bag 1 BAG IV SCH (14:26)
[2025-02-01] MEDS: metroNIDAZOLE/Normal Saline 500 MG in Premix Bag 1 BAG IV ONE (14:26)
[2025-02-01 15:07] LABS: LACTIC ACID 0.8 mmol/L (0.4-2.0)
[2025-02-01] MEDS: Iopamidol 755 MG/ML 500 ML Multipack Bottle IVPUSH STA (15:16)
[2025-02-01 15:54] LABS: APPEARANCE,URINE SLT CLOUDY; GLUCOSE,URINE NEGATIVE (NEGATIVE); OCCULT BLOOD,URINE NEGATIVE (NEGATIVE)
[2025-02-01] MEDS: diphenhydrAMINE 50 MG/ML SDV IVPUSH ONE (16:09)
[2025-02-01] MEDS ORDERED: Sodium Chloride 0.9% 2.5 ML Syringe FLUSH PRN (16:34)
[2025-02-01] MEDS ORDERED: Ondansetron 4 MG/2 ML SDV IVPUSH PRN (16:34)
[2025-02-01] MEDS ORDERED: Naloxone 0.4 MG/ML SDV IVPUSH PRN (16:34)
[2025-02-01] MEDS ORDERED: Sodium Chloride 0.9% 10 ML Syringe FLUSH PRN (16:34)
[2025-02-01] MEDS ORDERED: Pantoprazole 40 MG in Sodium Chloride 0.9% 10 ML IVPUSH SCH (16:45)
[2025-02-01] MEDS: Pantoprazole 40 MG in Sodium Chloride 0.9% 10 ML IVPUSH SCH (17:28)
[2025-02-02 06:07] LABS: BASOPHILS ABSOLUTE AUTO 0.06 K/uL (0.00-0.20); BASOPHILS PERCENT AUTO 0.5 % (0.0-1.0); EOSINOPHILS ABSOLUTE AUTO 0.22 K/uL (0.00-0.45); EOSINOPHILS PERCENT AUTO 1.7 % (0.0-6.0); IMMATURE GRAN ABSOLUTE AUTO 0.04 K/uL (0.00-0.05); IMMATURE GRAN PERCENT AUTO 0.3 % (0.0-0.4); LYMPHOCYTES ABSOLUTE AUTO 2.04 K/uL (1.00-4.80); LYMPHOCYTES PERCENT AUTO 15.6 % (24.0-44.0); MEAN PLATELET VOLUME 9.2 fL (9.4-12.4); MONOCYTES ABSOLUTE AUTO 1.35 K/uL (0.00-0.80); MONOCYTES PERCENT AUTO 10.3 % (0.0-8.0); NEUTROPHILS ABSOLUTE AUTO 9.36 K/uL (1.80-7.70); NEUTROPHILS PERCENT AUTO 71.6 % (41.0-71.0); NRBC ABSOLUTE 0.00 K/uL (0.00-0.02); NRBC PERCENT 0.0 /100WBC (0.0-0.2); PLATELET COUNT,PLT 220 K/uL (150-400); RED BLOOD CELL COUNT 4.99 M/uL (4.52-5.90); WHITE BLOOD CELL COUNT,WBC 13.07 K/uL (3.9-11.3)
[2025-02-02 06:30] LABS: BLOOD UREA NITROGEN,BUN 13.0 mg/dL (7.0-18.0); CARBON DIOXIDE,CO2 28.7 mmol/L (21.0-32.0); CHLORIDE,CL 106.0 mmol/L (98-107); CREATININE 0.9 mg/dL (0.8-1.3); EST CRCL DRUG DOSING (CG) 73.09 mL/min; ESTIMATED GFR 98.0 mL/min (>60); GLUCOSE RANDOM 92.0 mg/dL (74-106); POTASSIUM,K 4.3 mmol/L (3.5-5.1); SODIUM,NA 143.0 mmol/L (136-148)
[2025-02-02 09:05] VITALS: BP 161/77; PULSE 72
== END 2025-02-02 10:20 | disposition home or self-care (01) | DRG 392 ==
LOC: MW.ED 12:20 → MW.MS 16:22
PROVIDERS: ADMIT Family Medicine; ATTEND Family Medicine
DX: K57.32 Diverticulitis of large intestine without perforation or abscess without bleeding (principal); T36.8X5A Adverse effect of other systemic antibiotics, initial encounter; T37.3X5A Adverse effect of other antiprotozoal drugs, initial encounter; F17.210 Nicotine dependence, cigarettes, uncomplicated; K57.92 Diverticulitis of intestine, part unspecified, without perforation or abscess without bleeding; Z88.5 Allergy status to narcotic agent; F17.200 Nicotine dependence, unspecified, uncomplicated; D75.1 Secondary polycythemia; J44.9 Chronic obstructive pulmonary disease, unspecified; H91.90 Unspecified hearing loss, unspecified ear; H54.7 Unspecified visual loss; M54.9 Dorsalgia, unspecified; G89.29 Other chronic pain; M54.2 Cervicalgia; E86.0 Dehydration; R56.9 Unspecified convulsions; F41.9 Anxiety disorder, unspecified; F32.A Depression, unspecified; Z85.841 Personal history of malignant neoplasm of brain; Z85.118 Personal history of other malignant neoplasm of bronchus and lung; Z79.82 Long term (current) use of aspirin; Z88.8 Allergy status to other drugs, medicaments and biological substances; Z88.0 Allergy status to penicillin; Z79.899 Other long term (current) drug therapy; Z96.649 Presence of unspecified artificial hip joint
CPT/HCPCS: 36415; 74177; 80053; 81003; 83605; 83690; 85025; 87040 ×2; 96361; 96365; 96366; 96368; 96375; 99285; A9270; J0744; J1200; J1836; J2405; J7030 ×2; Q9967; 80048; 82947; 83735; 99284; J2470; J2543

== ENCOUNTER 2025-04-24 10:46 | Emergency (ER) | payer OTHER ==
[2025-04-24 12:15] VITALS: BP 135/85; PULSE 79
== END 2025-04-24 12:15 | disposition home or self-care (01) ==
LOC: MW.ED 10:46
DX: Z02.89 Encounter for other administrative examinations (principal); Z88.5 Allergy status to narcotic agent; Z88.8 Allergy status to other drugs, medicaments and biological substances; Z79.82 Long term (current) use of aspirin; Z79.899 Other long term (current) drug therapy
CPT/HCPCS: 99282; 99283

== ENCOUNTER 2025-04-24 16:22 | Emergency (ER) | payer OTHER ==
[2025-04-24 17:43] LABS: BASOPHILS ABSOLUTE AUTO 0.06 K/uL (0.00-0.20); BASOPHILS PERCENT AUTO 0.5 % (0.0-1.0); EOSINOPHILS ABSOLUTE AUTO 0.05 K/uL (0.00-0.45); EOSINOPHILS PERCENT AUTO 0.5 % (0.0-6.0); IMMATURE GRAN ABSOLUTE AUTO 0.03 K/uL (0.00-0.05); IMMATURE GRAN PERCENT AUTO 0.3 % (0.0-0.4); LYMPHOCYTES ABSOLUTE AUTO 1.07 K/uL (1.00-4.80); LYMPHOCYTES PERCENT AUTO 9.8 % (24.0-44.0); MEAN PLATELET VOLUME 9.8 fL (9.4-12.4); MONOCYTES ABSOLUTE AUTO 0.74 K/uL (0.00-0.80); MONOCYTES PERCENT AUTO 6.8 % (0.0-8.0); NEUTROPHILS ABSOLUTE AUTO 9.01 K/uL (1.80-7.70); NEUTROPHILS PERCENT AUTO 82.1 % (41.0-71.0); NRBC ABSOLUTE 0.00 K/uL (0.00-0.02); NRBC PERCENT 0.0 /100WBC (0.0-0.2); PLATELET COUNT,PLT 207 K/uL (150-400); RED BLOOD CELL COUNT 5.81 M/uL (4.52-5.90); WHITE BLOOD CELL COUNT,WBC 10.96 K/uL (3.9-11.3)
[2025-04-24] MEDS: Ondansetron 4 MG/2 ML SDV IVPUSH ONE (18:01)
[2025-04-24] MEDS: Ketorolac 30 MG/ML SDV IVPUSH ONE (18:01)
[2025-04-24 18:11] LABS: A/G RATIO 1.2 (0.9-1.6); ALANINE AMINOTRANSFERASE,ALT 35 IU/L (14-63); ASPARTATE AMNIOTRANSFERASE,AST 24 IU/L (15-37); BILIRUBIN TOTAL 0.8 mg/dL (0.2-1.0); BLOOD UREA NITROGEN,BUN 11 mg/dL (7.0-18.0); CARBON DIOXIDE,CO2 30.3 mmol/L (21.0-32.0); CHLORIDE,CL 104 mmol/L (98-107); CREATININE 0.8 mg/dL (0.8-1.3); GLUCOSE RANDOM 115 mg/dL (74-106); POTASSIUM,K 4.1 mmol/L (3.5-5.1); PROTEIN TOTAL,TP 7.4 g/dL (6.4-8.2); SODIUM,NA 143 mmol/L (136-148)
[2025-04-24 18:13] LABS: ESTIMATED GFR 101 mL/min (>60)
[2025-04-24] MEDS: Iopamidol 755 MG/ML 500 ML Multipack Bottle IVPUSH STA (18:30)
[2025-04-24 18:42] LABS: GLUCOSE,URINE NEGATIVE (NEGATIVE); OCCULT BLOOD,URINE NEGATIVE (NEGATIVE)
[2025-04-24 18:43] LABS: APPEARANCE,URINE SLT CLOUDY
[2025-04-24 19:23] VITALS: BP 152/73; PULSE 89
== END 2025-04-24 19:40 | disposition home or self-care (01) ==
LOC: MW.ED 16:22
DX: R10.84 Generalized abdominal pain (principal); J44.9 Chronic obstructive pulmonary disease, unspecified; Z75.3 Unavailability and inaccessibility of health-care facilities; Z88.5 Allergy status to narcotic agent; Z88.8 Allergy status to other drugs, medicaments and biological substances; Z79.82 Long term (current) use of aspirin; Z79.899 Other long term (current) drug therapy
CPT/HCPCS: 36415; 74177; 80053; 81003; 83690; 83735; 85025; 96361; 96374; 96375; 99284; A9270; J1885; J2405; J7030; Q9967; 99283

== ENCOUNTER 2025-04-26 02:41 | Emergency (ER) | payer OTHER ==
[2025-04-26 02:53] VITALS: PULSE 92
[2025-04-26 03:28] LABS: BASOPHILS ABSOLUTE AUTO 0.04 K/uL (0.00-0.20); BASOPHILS PERCENT AUTO 0.3 % (0.0-1.0); EOSINOPHILS ABSOLUTE AUTO 0.03 K/uL (0.00-0.45); EOSINOPHILS PERCENT AUTO 0.2 % (0.0-6.0); IMMATURE GRAN ABSOLUTE AUTO 0.04 K/uL (0.00-0.05); IMMATURE GRAN PERCENT AUTO 0.3 % (0.0-0.4); LYMPHOCYTES ABSOLUTE AUTO 1.93 K/uL (1.00-4.80); LYMPHOCYTES PERCENT AUTO 12.9 % (24.0-44.0); MEAN PLATELET VOLUME 10.0 fL (9.4-12.4); MONOCYTES ABSOLUTE AUTO 1.18 K/uL (0.00-0.80); MONOCYTES PERCENT AUTO 7.9 % (0.0-8.0); NEUTROPHILS ABSOLUTE AUTO 11.78 K/uL (1.80-7.70); NEUTROPHILS PERCENT AUTO 78.4 % (41.0-71.0); NRBC ABSOLUTE 0.00 K/uL (0.00-0.02); NRBC PERCENT 0.0 /100WBC (0.0-0.2); PLATELET COUNT,PLT 217 K/uL (150-400); RED BLOOD CELL COUNT 5.87 M/uL (4.52-5.90); WHITE BLOOD CELL COUNT,WBC 15.00 K/uL (3.9-11.3)
[2025-04-26] MEDS: Promethazine 25 MG/ML SDV IM ONE (03:35)
[2025-04-26] MEDS: Ketorolac 30 MG/ML SDV IVPUSH ONE (03:35)
[2025-04-26 03:45] LABS: A/G RATIO 1.3 (0.9-1.6); ALANINE AMINOTRANSFERASE,ALT 32.0 IU/L (14-63); ASPARTATE AMNIOTRANSFERASE,AST 25.0 IU/L (15-37); BILIRUBIN TOTAL 0.9 mg/dL (0.2-1.0); BLOOD UREA NITROGEN,BUN 25.0 mg/dL (7.0-18.0); CARBON DIOXIDE,CO2 32.4 mmol/L (21.0-32.0); CHLORIDE,CL 98.0 mmol/L (98-107); CREATININE 0.9 mg/dL (0.8-1.3); EST CRCL DRUG DOSING (CG) 72.17 mL/min; GLUCOSE RANDOM 135.0 mg/dL (74-106); POTASSIUM,K 4.0 mmol/L (3.5-5.1); PROTEIN TOTAL,TP 7.4 g/dL (6.4-8.2); SODIUM,NA 139.0 mmol/L (136-148)
[2025-04-26 03:46] LABS: ESTIMATED GFR 97.0 mL/min (>60)
[2025-04-26 04:56] VITALS: BP 133/80
== END 2025-04-26 05:04 | disposition home or self-care (01) ==
LOC: MW.ED 02:41
DX: R11.2 Nausea with vomiting, unspecified (principal); E78.00 Pure hypercholesterolemia, unspecified; J44.9 Chronic obstructive pulmonary disease, unspecified; Z88.5 Allergy status to narcotic agent; Z88.8 Allergy status to other drugs, medicaments and biological substances; Z79.899 Other long term (current) drug therapy
CPT/HCPCS: 36415; 74019; 80053; 84484; 85025; 93005; 96361; 96372; 96374; 99284; J1885; J2550; J7030; 93010

== ENCOUNTER 2025-04-26 20:06 | Emergency (ER) | payer OTHER ==
[2025-04-26 20:16] VITALS: BP 138/99; PULSE 104
[2025-04-26] MEDS: Alum Hydrox/Mag Hydrox/Simeth 15 ML, Metoclopramide 5 MG, Lidocaine 2% 5 ML PO ONE (21:58)
[2025-04-26] MEDS: Acetaminophen/HYDROcodone 325-5 MG Tab PO ONE (23:09)
== END 2025-04-26 23:14 | disposition home or self-care (01) ==
LOC: MW.ED 20:06
DX: K29.00 Acute gastritis without bleeding (principal); E78.00 Pure hypercholesterolemia, unspecified; G89.29 Other chronic pain; Z88.5 Allergy status to narcotic agent; Z88.8 Allergy status to other drugs, medicaments and biological substances; Z79.899 Other long term (current) drug therapy
CPT/HCPCS: 99283; A9270; J3490

== ENCOUNTER 2025-04-27 13:58 | Inpatient (IN) | payer OTHER ==
[2025-04-27] MEDS: Sucralfate Suspension 1 GM/10 ML Cup PO ONE (15:26)
[2025-04-27 15:27] LABS: BASOPHILS ABSOLUTE AUTO 0.06 K/uL (0.00-0.20); BASOPHILS PERCENT AUTO 0.3 % (0.0-1.0); EOSINOPHILS ABSOLUTE AUTO 0.09 K/uL (0.00-0.45); EOSINOPHILS PERCENT AUTO 0.5 % (0.0-6.0); IMMATURE GRAN ABSOLUTE AUTO 0.05 K/uL (0.00-0.05); IMMATURE GRAN PERCENT AUTO 0.3 % (0.0-0.4); LYMPHOCYTES ABSOLUTE AUTO 1.62 K/uL (1.00-4.80); LYMPHOCYTES PERCENT AUTO 9.3 % (24.0-44.0); MEAN PLATELET VOLUME 9.8 fL (9.4-12.4); MONOCYTES ABSOLUTE AUTO 1.34 K/uL (0.00-0.80); MONOCYTES PERCENT AUTO 7.7 % (0.0-8.0); NEUTROPHILS ABSOLUTE AUTO 14.33 K/uL (1.80-7.70); NEUTROPHILS PERCENT AUTO 81.9 % (41.0-71.0); NRBC ABSOLUTE 0.00 K/uL (0.00-0.02); NRBC PERCENT 0.0 /100WBC (0.0-0.2); PLATELET COUNT,PLT 212 K/uL (150-400); RED BLOOD CELL COUNT 4.83 M/uL (4.52-5.90); WHITE BLOOD CELL COUNT,WBC 17.49 K/uL (3.9-11.3)
[2025-04-27 15:52] LABS: A/G RATIO 1.3 (0.9-1.6); ALANINE AMINOTRANSFERASE,ALT 27.0 IU/L (14-63); ASPARTATE AMNIOTRANSFERASE,AST 27.0 IU/L (15-37); BILIRUBIN TOTAL 0.8 mg/dL (0.2-1.0); BLOOD UREA NITROGEN,BUN 28.0 mg/dL (7.0-18.0); CARBON DIOXIDE,CO2 31.2 mmol/L (21.0-32.0); CHLORIDE,CL 102.0 mmol/L (98-107); CREATININE 1.0 mg/dL (0.8-1.3); EST CRCL DRUG DOSING (CG) 64.96 mL/min; GLUCOSE RANDOM 115.0 mg/dL (74-106); POTASSIUM,K 3.6 mmol/L (3.5-5.1); PROTEIN TOTAL,TP 6.6 g/dL (6.4-8.2); SODIUM,NA 141.0 mmol/L (136-148)
[2025-04-27 15:57] LABS: ESTIMATED GFR 86.0 mL/min (>60)
[2025-04-27 16:00] LABS: LACTIC ACID 0.9 mmol/L (0.4-2.0)
[2025-04-27 17:43] LABS: APPEARANCE,URINE CLEAR; GLUCOSE,URINE NEGATIVE (NEGATIVE); OCCULT BLOOD,URINE NEGATIVE (NEGATIVE)
[2025-04-27] MEDS ORDERED: Ondansetron 4 MG/2 ML SDV IVPUSH PRN (18:46)
[2025-04-28] MEDS ORDERED: Sodium Chloride 0.9% 10 ML Syringe FLUSH PRN (00:40)
[2025-04-28] MEDS ORDERED: Sodium Chloride 0.9% 2.5 ML Syringe FLUSH PRN (00:40)
[2025-04-28 05:37] LABS: BASOPHILS ABSOLUTE AUTO 0.06 K/uL (0.00-0.20); BASOPHILS PERCENT AUTO 0.6 % (0.0-1.0); EOSINOPHILS ABSOLUTE AUTO 0.30 K/uL (0.00-0.45); EOSINOPHILS PERCENT AUTO 2.9 % (0.0-6.0); IMMATURE GRAN ABSOLUTE AUTO 0.04 K/uL (0.00-0.05); IMMATURE GRAN PERCENT AUTO 0.4 % (0.0-0.4); LYMPHOCYTES ABSOLUTE AUTO 1.78 K/uL (1.00-4.80); LYMPHOCYTES PERCENT AUTO 17.5 % (24.0-44.0); MEAN PLATELET VOLUME 9.3 fL (9.4-12.4); MONOCYTES ABSOLUTE AUTO 0.78 K/uL (0.00-0.80); MONOCYTES PERCENT AUTO 7.7 % (0.0-8.0); NEUTROPHILS ABSOLUTE AUTO 7.21 K/uL (1.80-7.70); NEUTROPHILS PERCENT AUTO 70.9 % (41.0-71.0); NRBC ABSOLUTE 0.00 K/uL (0.00-0.02); NRBC PERCENT 0.0 /100WBC (0.0-0.2); PLATELET COUNT,PLT 178 K/uL (150-400); RED BLOOD CELL COUNT 3.79 M/uL (4.52-5.90); WHITE BLOOD CELL COUNT,WBC 10.17 K/uL (3.9-11.3)
[2025-04-28 06:12] LABS: A/G RATIO 1.2 (0.9-1.6); ALANINE AMINOTRANSFERASE,ALT 22.0 IU/L (14-63); ASPARTATE AMNIOTRANSFERASE,AST 23.0 IU/L (15-37); BILIRUBIN TOTAL 0.6 mg/dL (0.2-1.0); BLOOD UREA NITROGEN,BUN 17.0 mg/dL (7.0-18.0); CARBON DIOXIDE,CO2 30.6 mmol/L (21.0-32.0); CHLORIDE,CL 110.0 mmol/L (98-107); CREATININE 0.7 mg/dL (0.8-1.3); EST CRCL DRUG DOSING (CG) 92.79 mL/min; ESTIMATED GFR 105.0 mL/min (>60); GLUCOSE RANDOM 84.0 mg/dL (74-106); POTASSIUM,K 4.5 mmol/L (3.5-5.1); PROTEIN TOTAL,TP 5.1 g/dL (6.4-8.2); SODIUM,NA 144.0 mmol/L (136-148)
[2025-04-28 10:17] VITALS: BP 116/70; PULSE 88
== END 2025-04-28 11:13 | disposition home or self-care (01) | DRG 392 ==
LOC: MW.ED 13:58 → MW.MS 16:49
PROVIDERS: ADMIT Internal Medicine; ATTEND Internal Medicine
DX: R10.13 Epigastric pain (principal); R11.2 Nausea with vomiting, unspecified; K29.00 Acute gastritis without bleeding; D72.829 Elevated white blood cell count, unspecified; H91.90 Unspecified hearing loss, unspecified ear; Z88.5 Allergy status to narcotic agent; H54.7 Unspecified visual loss; E78.00 Pure hypercholesterolemia, unspecified; J44.9 Chronic obstructive pulmonary disease, unspecified; M54.9 Dorsalgia, unspecified; G89.29 Other chronic pain; F41.9 Anxiety disorder, unspecified; F17.200 Nicotine dependence, unspecified, uncomplicated; E86.0 Dehydration; F32.A Depression, unspecified; R56.9 Unspecified convulsions; Z96.649 Presence of unspecified artificial hip joint; Z85.841 Personal history of malignant neoplasm of brain; Z85.118 Personal history of other malignant neoplasm of bronchus and lung; Z79.899 Other long term (current) drug therapy; Z88.8 Allergy status to other drugs, medicaments and biological substances
CPT/HCPCS: 36415; 76705; 80053; 83605; 83690; 83735; 85025; 96361; 96374; 99285; A9270 ×2; J1308; J7030; 81003; 99284